=== PATIENT | male | born 1950 | race Caucasian/White ===

== ENCOUNTER 2020-09-25 07:55 | Day surgery (SDC) | payer MEDICARE, SELFPAY ==
[2020-09-24 08:39] VITALS: BMI 34.9
--- NOTE | 2020-09-25 08:13 | ANES.PREANE2 ---
Pre-Anesthetic Assessment Pre-Anesthetic Assessment: Height/Weight: Height 1.77 m Weight 108.862 kg Proposed Procedure: Operation Date: 09/25/20 09:30 Proposed Procedures p EGD Dilation W/ Bougie 10170 R13.10(Not Applicable) - Clint Cox MD Was Beta Snehal taken within 24 hours: N/A Was Clonidine taken within 24 hours: N/A Social: Social History: No alcohol and No tobacco Exam: Pre-Anes Outpt Exam: alert, oriented x 3, clear to auscultation bilaterally and regular rate & rhythm Airway: Submandibular: WNL Cervical ROM: WNL MP: 2 Dentition: False CV/HEM: CV/HEM: HTN GI: GI: GERD Metabolic: Metabolic: DM Musc/skel: Musc/skel: OA/DJD Anesthetic Plan: ASA status: 3 Anesthesia: MAC Risk of > 500 ml blood loss (7ml/kg in children): No Data Anesthesia Cardiac Studies: No Data to Display
[2020-09-25 08:26] VITALS: BP 151/79; PULSE 72; RESP 18; TEMP 36.5; O2SAT 98
[2020-09-25] MEDS: sodium chloride 0.9% 1,000 ML 30 ML IV (08:37)
[2020-09-25 08:44] LABS: Glucose Point of Care 155 mg/dL (70-110)
--- NOTE | 2020-09-25 09:31 | W.PM.OPSFHP ---
Same Day Surgery H&P Indication for Procedure/HPI DATE OF PROCEDURE: September 25, 2020 CHIEF COMPLAINT/INDICATIONFOR SURGICAL PROCEDURE: Dysphagia PREOP DIAGNOSIS: Dysphagia PLANNED PROCEDRUE: Operation Date: 09/25/20 09:30 Proposed Procedures p EGD Dilation W/ Bougie 71097 R13.10(Not Applicable) - Clint Cox MD Medications/Allergies* Home Medications Medication Instructions Recorded Confirmed Type esomeprazole magnesium 40 mg PO DAILY 09/24/20 09/25/20 History hydrochlorothiazide 25 mg PO DAILY 09/24/20 09/25/20 History lactobacillus acidoph-lactase 1 cap PO DAILY 09/24/20 09/25/20 History losartan 100 mg PO DAILY 09/24/20 09/25/20 History meloxicam 15 mg PO PRN 09/24/20 09/25/20 History metformin 850 mg PO BID 09/24/20 09/25/20 History terbinafine HCl 250 mg PO DAILY 09/24/20 09/25/20 History Allergies/Adverse Reactions Allergy/AdvReac Type Severity Reaction Status Date / Time No Known Allergies Allergy Unverified 09/15/20 15:56 Current Medications: Generic Name Dose Route Start Last Admin Trade Name Freq PRN Reason Stop Dose Admin Sodium Chloride 1,000 mls @ 30 mls/hr 09/25/20 08:30 09/25/20 08:37 Sodium Chloride 0.9% IV 09/26/20 08:29 30 mls/hr .Q24H DELORIS Administration Pertinent Exam Findings alert, oriented x 3, clear to auscultation bilaterally, regular rate & rhythm, operative site marked and procedure specific exam findings Recommendations Surgery/Procedure today Coding Level of Care Code Acute 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
--- NOTE | 2020-09-25 10:18 | CT_ITS ---
WS: [id number] CTA CHEST WITH CT ABDOMEN AND PELVIS. HISTORY: Esophageal mass. TECHNIQUE: CT angiogram is performed through the chest. Additional imaging is performed through the a bdomen and pelvis with IV contrast. Sagittal and coronal reformats have been submitted. MIP imaging also reviewed. All CT scans at [facility] use at least one of these dose optimization tech niques: automated exposure control; mA and/or kV adjustment per patient size (includes targeted exams where dose is matched to clinical indication); or iterative reconstruction. Contrast: Omnipaque 350; 95 cc IV. DLP: 1762.85 mGy.cm COMPARISON: None. Chest CTA: Very good opacification of the pulmonary arteries. No pulmonary embolism. Mild atheroscler osis aorta. Normal size pulmonary artery. Mild enlargement of the LEFT heart chambers with no RIGHT h eart strain. No pericardial or pleural effusions. Marked thickening and soft tissue in the distal eso phagus. The lumen is narrowed. Esophageal thickening extends over a length of at least 5 cm with maxi mum transverse diameter of 3.6 cm. Soft tissue thickening extends to the GE junction. Small mediastin al and hilar lymph nodes. There are a few lymph nodes adjacent to the distal esophagus with the large st measuring 10 mm. 3 mm noncalcified nodule posterior RIGHT upper lobe, image 21 of series 5. There are a few additional micronodules in the periphery which may be postinflammatory. Abdomen CT: Gallbladder is slightly contracted. Liver, pancreas, spleen and adrenals are negative. Mi ld atherosclerotic plaque within the aorta. Bilateral nonobstructing renal calcifications. 11 mm low- attenuation nodule in the upper pole of the LEFT kidney is indeterminate. Hounsfield units are elevat ed. No ascites or adenopathy. Moderate fecal retention throughout the colon. The appendix is been removed. Pelvic CT: No free fluid in the pelvis. Prostate gland is enlarged encroaching into the urinary bladd er with calcifications. No adenopathy in the pelvis. No osteoblastic or osteolytic bone disease. Moderate spondylitic changes in the thoracic and lumbar s pinelilly. CT/CT angio chest w abd pel w con IMPRESSION: 1. Long segment thickening and masslike structure in the distal esophagus. Mas s measures extends over length of at least 5 cm. Transverse diameter of 3.6 cm. Suspect esophageal neoplasm. There are a few adjacent small but indeterminate lymph nodes in the paraesophageal fat. 2. No evidence for metastatic disease to the liver or adrenal glands. 3. 3 mm noncalcified nodule posterior RIGHT upper lobe. Recommend further eval uation by CT follow-up in 6 months. 4. LEFT renal mass measures 11 mm and is solid in appearance. Early renal cell neoplasm not excluded. Recommend follow-up in [address] protocol recommended in 6 months.
[2020-09-25] MEDS: EPINEPHrine 1 mg/mL INJ XX (10:22)
[2020-09-25 10:24] VITALS: BP 163/95; PULSE 90; RESP 16; TEMP 36.5; O2SAT 95
[2020-09-25 10:34] VITALS: BP 148/91; PULSE 83; RESP 18; O2SAT 95
[2020-09-25 11:06] LABS: Basophils % 0.7 %; Eosinophils # 0.1 10^3/uL (0.0-0.8); Eosinophils % 2.3 %; Hematocrit 41.5 % (42.0-52.0); Lymphocytes # 1.7 10^3/uL (0.8-4.8); Lymphocytes % 28.3 %; Mean Corpuscular HGB Conc 33.7 g/dL (30.0-36.0); Mean Corpuscular Hemoglobin 31.1 pg (28.0-34.0); Mean Corpuscular Volume 92.2 fl (80-94); Mean Platelet Volume 10.4 fL (7.4-10.4); Monocytes # 0.6 10^3/uL (0.2-0.9); Monocytes % 9.5 %; Neutrophils # 3.55 10^3/uL (1.8-7.7); Nucleated Red Blood Cells % 0 %; Platelet Count 217 10^3/cmm (130-400); Red Cell Distribution Width 13.2 % (12.1-15.1)
[2020-09-25 11:28] LABS: Alanine Aminotransferase 26 U/L (0-41); Albumin Level 4.2 g/dL (3.5-5.2); Alkaline Phosphatase 98 IU/L (40-130); Anion Gap 11.5 (5-19); Aspartate Amino Transferase 21 U/L (0-40); Blood Urea Nitrogen 15 mg/dL (8-23); Calcium 8.8 mg/dL (8.5-10.5); Carbon Dioxide 29 mmol/L (22-29); Chloride 104 mmol/L (98-107); Glucose 151 mg/dL (65-115); Osmolality Calculated 294 mOsm/kg (285-295); Potassium 4.5 mmol/L (3.5-5.1); Sodium 140 mmol/L (136-145); Total Bilirubin 0.4 mg/dL (0.15-1.2); Total Protein 7.2 g/dL (6.6-8.7)
[2020-09-25] MEDS: iohexol 350 mg/mL 100 mL Btl IV (12:06)
--- NOTE | 2020-09-25 14:40 | ANE.PACU2 ---
Inpatient post-anesthesia follow up: Airway intact: Yes Vital signs: Temperature 97.7 F Pulse Rate 83 Respiratory Rate 18 Blood Pressure 148/91 Pulse Oximetry 95 Oxygen Delivery Me thod Room Air Oxygen Flow Rate 5 Fraction of Inspir ed Oxygen Hydration adequate: Yes Nausea and vomiting: No Pain level: 1 Mental status: Baseline
[2020-10-02 07:12] LABS: Miscellaneous Test See Scanned Lab Rpt
== END 2020-09-25 11:58 | disposition home or self-care (01) ==
PROVIDERS: PCP Family Medicine; Visit Provider Internal Medicine
DX: C15.5 Malignant neoplasm of lower third of esophagus (principal); R13.10 Dysphagia, unspecified; I10 Essential (primary) hypertension; K21.9 Gastro-esophageal reflux disease without esophagitis; E11.9 Type 2 diabetes mellitus without complications; M19.90 Unspecified osteoarthritis, unspecified site
CPT/HCPCS: 36416; 43236; 43239; 71275; 74177; 80053; 82962; 85025; 88305; 88361; 88374; 96360; J0171; J2704; J7030; Q9967

== ENCOUNTER 2020-10-12 09:56 | Outpatient (CLI) | payer MEDICARE, SELFPAY ==
--- NOTE | 2020-10-12 13:21 | ONC CON_ITS ---
Dr. Michaels New Patient Note Patient: Jatinder Platt Unit #: [id number]: [id number] Dicatated By: Merlyn Michaels M.D.Date of Visit: Oct 12, 2020 Onc MED New Patient/Consult Referring Physician: Dr. Capo Cox M.D. History of Present Illness: Mr. 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 Measures at least 5 cm, transverse diameter about 3.6 cm. There are few adjacent small but indeterminant lymph nodes in the paraesophageal fat. No evidence of metastatic disease to the liver or adrenal gland. A 3 mm noncalcified nodule posterior right upper lobe. Left renal mass measuring 11 mm and is solid in appearance. Early renal cell neoplasm not excluded follow-up recommended Patient has history of smoking but quit 31 years ago, but is a heavy smoker so he has secondhand smoking exposure. Denies alcohol use.,, Denies any fever chills, denies any nausea or vomiting, denies any diarrhea or constipation denies any abdominal pain denies any hematuria or dysuria or hemoptysis or hematemesis. Denies any headaches blurred vision or double vision. Past Medical History: Mr. Platt's medical history consists of hypertension, osteoarthritis, and type II diabetes. Past Surgical History: Mr. Platt's surgical/procedural history consists of cataract excision, covid vaccine #1 moderna in 2020, appendectomy in 1984, and thyroid surgery in 1967. Medications: Acidophilus 1 Capsule Oral daily, Esomeprazole Magnesium 1 Tablet (of 40 mg) Capsule Delayed Release Oral daily Allergies: No Known Allergies. Social History: Mr. Platt is . He is a smoker, current status unknown.He has no history of drinking. Family History: Mr. Platt's mother at age 72: heart disease, and type II diabetes. Mr. Platt's father at age 80. Review Of Symptoms: Review of Systems is not available for this patient. Vital Signs: Performed on Oct 12, 2020 11:23: 0, 3, 31.90 (HIGH), 2.13 sq.m, 69 in, 99 %, 80 /min, 18 /min, 182/62 mm(hg) (HIGH), 97.8 F (LOW), and 216 lbs (HIGH). Performance Status: 0 - Fully active, able to carry on all predisease activities without restrictions. (ECOG) Physical Examination: ENMT - No mouth sores, no thrush, no jaundice, no cervical lymphadenopathy, Respiratory - Lungs are clear to auscultation, Cardiovascular - Regular rate and rhythm of heart, Abdomen - Soft, bowel sounds present, Extremities - No visible edema. Lab/Imaging: Most recent lab results are not available for this patient. Impression: Invasive adenocarcinoma, moderate differentiated involving distal esophagus per EGD done on September 25, 2020, HER-2/emanuel positive CT chest abdomen pelvis done on October 12, 2020 shows long segment thickening and masslike structure in the distal esophagus. Mass measures about 5 cm. Transverse diameter is of 3.6 cm. There are few adjacent small but indeterminate lymph nodes in the paraesophageal fat. No evidence of metastatic disease to the liver or adrenal glands. 3 mm noncalcified nodule posterior right upper lobe. Left renal mass measuring 11 mm is and solid in appearance. Early renal cell neoplasm not excluded, follow-up recommended Progressive dysphagia, due to above Hypertension Plan: Discussed with patient regarding his disease status and further work-up and briefly about treatment options, at this point, will consider CT PET scan to complete staging work-up, if it shows localized disease, will consider combined chemoradiation with weekly carboplatin/Taxol concurrent with radiation therapy followed by surgical evaluation for possible esophagectomy , on the other hand, if it shows metastatic disease, will consider HER-2/emanuel based chemo regimen There was incidental finding of subcentimeter noncalcified right upper lung mass, and left renal mass, will monitor We will also request for Port-A-Cath placement and patient return to clinic after CT PET scan in the meantime we will also refer him to radiation oncology for evaluation., Will obtain baseline CBC CMP Signed By: Merlyn Michaels M.D. <<Signature on File>>
== END 2020-10-12 09:57 | disposition home or self-care (01) ==
LOC: ONCMED 10:06
PROVIDERS: PCP Family Medicine; Visit Provider Internal Medicine Hematology & Oncology
DX: C15.5 Malignant neoplasm of lower third of esophagus (principal); R91.8 Other nonspecific abnormal finding of lung field; N28.89 Other specified disorders of kidney and ureter; Z79.899 Other long term (current) drug therapy
CPT/HCPCS: 99205

== ENCOUNTER → 2020-10-16 13:32 | Outpatient (BNVA) | payer MEDICARE, SELFPAY | PROVIDERS: PCP Family Medicine; Referring Provider Internal Medicine Hematology & Oncology; Visit Provider Surgery | DX: C15.9 Malignant neoplasm of esophagus, unspecified (principal); Z11.52 Encounter for screening for COVID-19 | CPT/HCPCS: 87635 ==

== ENCOUNTER 2020-10-21 08:42 | Day surgery (SDC) | payer MEDICARE, SELFPAY ==
[2020-10-20 15:26] VITALS: BMI 31.7
--- NOTE | 2020-10-21 | SCC_ITS ---
Procedure Done: Placement of PowerPort in the left subclavian vein 24.9 seconds of fluoroscopic guidance, for a cumulative dose of 4.29 mGy, was provided to Dr. Barrera by the radiology department. C-arm images of the chest were saved for the patient's permanent record. [facility]
--- NOTE | 2020-10-21 08:57 | W.PM.OPSUD ---
Surgery/Procedure H&P Update DATE OF PROCEDURE: October 21, 2020 DATE H&P PERFORMED: 10/16/20 H&P UPDATE INFORMATION: I have reviewed H&P completed within last 30 days, I have examined patient prior to procedure and No changes to prior documentation PREOP DIAGNOSIS: Dysphagia PLANNED PROCEDURE: Operation Date: 10/21/20 09:50 Proposed Procedures p Portacath Placement 01702 C15.9(Not Applicable) - Giuseppe Barrera MD
[2020-10-21 09:00] VITALS: BP 168/91; PULSE 75; RESP 16; TEMP 36.3; O2SAT 96
[2020-10-21] MEDS: sodium chloride 0.9% 1,000 ML 30 ML IV (09:11)
[2020-10-21 09:15] LABS: Glucose Point of Care 115 mg/dL (70-110)
--- NOTE | 2020-10-21 09:22 | ANES.PREANE2 ---
Pre-Anesthetic Assessment Pre-Anesthetic Assessment: Height/Weight: Height 1.75 m Weight 97.522 kg Temp Pulse Resp BP Pulse Ox 97.3 F L 75 16 168/91 96 10/21/20 09:00 10/21/20 09:00 10/21/20 09:00 10/21/20 09:00 10/21/20 09:00 Preop Diagnosis: Dysphagia Proposed Procedure: Operation Date: 10/21/20 09:50 Proposed Procedures p Portacath Placement 86480 C15.9(Not Applicable) - Giuseppe Barrera MD Familial anesthetic complications: None Was Beta Snehal taken within 24 hours: N/A Was Clonidine taken within 24 hours: N/A Last intake: Intake Last Liquid Date 10/20/20 Last Liquid Time 20:00 Last Solid Date 10/20/20 Last Solid Time 20:00 Social: Social History: No alcohol and No tobacco Exam: Pre-Anes Outpt Exam: alert, oriented x 3, clear to auscultation bilaterally and regular rate & rhythm Airway: Cervical ROM: WNL MP: 2 Dentition: False CV/HEM: CV/HEM: HTN GI: GI: GERD Comments: esophageal cancer Metabolic: Metabolic: DM Anesthetic Plan: ASA status: 3 Anesthesia: MAC Risk of > 500 ml blood loss (7ml/kg in children): No Meds/Allergies Current Medications: Current Medications Generic Name Dose Route Start Last Admin Trade Name Freq PRN Reason Stop Dose Admin Sodium Chloride 1,000 mls @ 30 ml s/hr 10/21/20 08:45 10/21/20 09:11 Sodium Chloride 0.9% IV 10/22/20 08:44 30 mls/hr .Q24H DELORIS Administration PFSH Anesthesia PFSH: Medical History (Updated 10/16/20 @ 17:15 by Giuseppe Barrera MD) Esophageal cancer History of thyroglossal duct cyst Surgical History (Updated 10/16/20 @ 16:37 by Giuseppe Barrera MD) History of appendectomy Family History (Updated 10/16/20 @ 13:40 by MARCELL Gonzalez) Denies family history of Anesthesia complication Bleeding disorder Social History Smoking and tobacco status: former smoker Data Anesthesia Other Labs: Laboratory Results - last 48 hr 10/21/20 09:13 POC Glucose 115 H Cardiac Studies: No Data to Display
--- NOTE | 2020-10-21 10:00 | SC_ITS ---
WS: [id number] C-arm fluoroscopy for Port-A-Cath insertion, 10/21/2020 Clinical Data: portacath Comparison: None. Findings: The left Port-A-Cath has been inserted and ends in the superior vena cava. SC/C-arm [place] for CVA [id number] Impression: Port-A-Cath insertion.
[2020-10-21] MEDS: heparin, porcine 1,000 unit/mL INJ 10 mL 10000 UNIT INJECTION (10:19)
[2020-10-21 11:08] VITALS: BP 133/78; PULSE 79; RESP 19; TEMP 36.8; O2SAT 94
[2020-10-21 11:10] VITALS: BP 134/80; PULSE 76; RESP 17; O2SAT 95
--- NOTE | 2020-10-21 11:14 | PM.OP ---
Operative Report Date of procedure: October 21, 2020 Pre-op Diagnosis: Esophageal cancer Post-op diagnosis: same Procedure Done: Placement of PowerPort in the left subclavian vein Fluoroscopic guidance and interpretation for placement of catheter Pathology: none sent Surgeon: Giuseppe Barrera Anesthesia: MAC Condition: stable Disposition: PACU Procedure: The patient was taken to the Operating Room and the chest and neck bilaterally were prepped and draped in a sterile manner after the antibiotic had been administered and shoulder rolls had been placed. A total of 10 mL of 1% lidocaine with 0.5% Marcaine was infiltrated under the clavicle on the left side at the site of the planned entry into the subclavian vein. An introducer needle was then used to access the subclavian vein under the clavicle and after withdrawing blood syringe was removed and a guidewire passed under fluoroscopy into the superior vena cava. The site of the planned port was then marked on the chest and a 15 blade was used to make a 3 cm skin incision this was extended into the subcutaneous tissue using electrocautery and a subcutaneous pocket over the pectoralis fascia was created 2-0 Vicryl suture was used to suture the port to the pectoral fascia in the pocket on 3 sides. The catheter, after having been flushed with hep saline, was attached to the tunneler and a tunnel created between the port site and the subclavian vein entry site. Under fluoroscopy the dilator sheath was passed over the guidewire into the proximal superior vena cava. The inner dilator was removed and the sheath left behind and~ the catheter was introduced through the peel-away sheath with the tip in the superior vena cava. The peel-away sheath was removed. The proximal end of the catheter was cut to the right size and was attached to the port. Using a Cote needle the port was accessed, it withdrew blood easily and flushed easily. A final 5cc of heparin was used to flush the PowerPort. The subcutaneous tissue was approximated using interrupted 3-0 Vicryl sutures and the skin at the introducer site and the port site was closed using subcuticular running 4-0 Monocryl sutures. Surgical glue was applied and the patient was stable throughout the procedure. Fluoroscopic guidance and interpretation was performed for introduction of the guidewire in the left subclavian vein, passage of dilator and placement of catheter tip in the distal superior vena cava.
[2020-10-21 11:15] VITALS: BP 158/85; PULSE 72; RESP 16; TEMP 36.6; O2SAT 95
[2020-10-21 11:16] VITALS: BP 150/91; PULSE 75; RESP 16; TEMP 36.5; O2SAT 96
--- NOTE | 2020-10-21 11:19 | PC.NURSE ---
Pt educated to take zofran for nausea and colace for constipation caused by the norco rx. Pt and daughter informed that scripts have been sent and received by [facility] pharmacy.
[2020-10-21 11:38] VITALS: BP 150/90; PULSE 71; RESP 16; O2SAT 95
--- NOTE | 2020-10-21 14:03 | ANE.PACU2 ---
Inpatient post-anesthesia follow up: Airway intact: Yes Vital signs: Temperature 97.7 F Pulse Rate 71 Respiratory Rate 16 Blood Pressure 150/90 Pulse Oximetry 95 Oxygen Delivery Me thod Room Air Oxygen Flow Rate Fraction of Inspir ed Oxygen Hydration adequate: Yes Nausea and vomiting: No Pain level: 2 Mental status: Baseline
== END 2020-10-21 11:46 | disposition home or self-care (01) ==
PROVIDERS: PCP Family Medicine; Visit Provider Surgery
PROC: (CPT 36561; principal; 2020-10-21 09:40)
DX: C15.9 Malignant neoplasm of esophagus, unspecified (principal); I10 Essential (primary) hypertension; E11.9 Type 2 diabetes mellitus without complications; Z87.891 Personal history of nicotine dependence
CPT/HCPCS: 36561; 36416; 77001; 82962; C1788; J1644; J2704; J3010; J3490; J7030

== ENCOUNTER 2020-10-28 11:57 | Outpatient (CLI) | payer MEDICARE, SELFPAY ==
[2020-10-28 12:25] LABS: Basophils # 0.1 10^3/uL (0.0-0.1); Basophils % 0.9 %; Eosinophils # 0.1 10^3/uL (0.0-0.8); Eosinophils % 1.9 %; Hematocrit 43.3 % (42.0-52.0); Hemoglobin 14.3 g/dL (11.7-16.6); Lymphocytes # 1.6 10^3/uL (0.8-4.8); Lymphocytes % 27.8 %; Mean Corpuscular Volume 93.7 fl (80-94); Mean Platelet Volume 10.5 fL (7.4-10.4); Monocytes # 0.6 10^3/uL (0.2-0.9); Monocytes % 10.2 %; Neutrophils # 3.36 10^3/uL (1.8-7.7); Nucleated Red Blood Cells % 0 %; Platelet Count 221 10^3/cmm (130-400); Red Blood Count 4.62 10^6/uL (4.1-5.3); Red Cell Distribution Width 12.9 % (12.1-15.1); White Blood Count 5.7 10^3/uL (4.0-10.0)
[2020-10-28 12:41] LABS: Alanine Aminotransferase 19 U/L (0-41); Albumin Level 4.2 g/dL (3.5-5.2); Alkaline Phosphatase 106 IU/L (40-130); Anion Gap 13.2 (5-19); Aspartate Amino Transferase 19 U/L (0-40); Blood Urea Nitrogen 13 mg/dL (8-23); Calcium 9.1 mg/dL (8.5-10.5); Carbon Dioxide 29 mmol/L (22-29); Chloride 102 mmol/L (98-107); Globulin 3.1 g/dL (1.3-4.6); Glucose 98 mg/dL (65-115); Osmolality Calculated 290 mOsm/kg (285-295); Potassium 4.2 mmol/L (3.5-5.1); Sodium 140 mmol/L (136-145); Total Bilirubin 0.4 mg/dL (0.15-1.2); Total Protein 7.3 g/dL (6.6-8.7)
--- NOTE | 2020-10-28 17:05 | ONC FU_ITS ---
Dr. Michaels follow up note Patient: Jatinder Platt Unit #: [id number]: 1950 Dicatated By: Merlyn Michaels M.D.Date of Visit:Oct 28, 2020 Onc Med Follow-up/Prog Note History of Present Illness: Mr. 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 Measures at least 5 cm, transverse diameter about 3.6 cm. There are few adjacent small but indeterminant lymph nodes in the paraesophageal fat. No evidence of metastatic disease to the liver or adrenal gland. A 3 mm noncalcified nodule posterior right upper lobe. Left renal mass measuring 11 mm and is solid in appearance. Early renal cell neoplasm not excluded follow-up recommended Staging CT PET scan done on October 22, 2020 showed distal esophagus is dilated with thickened wall with a maximum SUV of 13.13. Lower mediastinal paraesophageal lymph nodes are present., Size about 0.9 cm with SUV of 6.03. Posterior right upper lobe 0.4 cm nodular density with SUV of 1.13 and another 0.2 cm nodular density in the right posterior apex with SUV of 1.27. Calcified micronodules are present in the right lung. And liver there is 2.2 cm mass in anterior left lobe with SUV of 9.79. A 2 cm nodular density is present in the posterior wall of the urinary bladder with SUV of 6.13 no mass is identified in the left kidney no osseous metastatic disease seen Patient has history of smoking but quit 31 years ago, but is a heavy smoker so he has secondhand smoking exposure. Denies alcohol use.,, Denies any fever chills, denies any nausea or vomiting, denies any diarrhea or constipation denies any abdominal pain denies any hematuria or dysuria or hemoptysis or hematemesis. Denies any headaches blurred vision or double vision. Came for follow-up, denies any specific complaints, no fever chills, no nausea or vomiting, no diarrhea constipation, still tolerating orally well but only liquid and semisolid, patient has Port-A-Cath placement done., He is here to discuss about his staging CT PET scan findings. And further treatment planning Medications: Acidophilus Probiotic 1 Tablet (of 10 mg) Oral daily, Daily Value Multivitamin 1 Tablet Oral daily, Esomeprazole Magnesium 1 Tablet (of 40 mg) Capsule Delayed Release Oral daily Allergies: No Known Allergies. Review of Systems: Review of Systems is not available for this patient. Vital Signs: Performed on Oct 28, 2020 14:05 Height - 69.00 in Weight - 206.8 lbs (LOW) BSA - 2.10 sq.m BMI - 30.54 (HIGH) Temperature - 97.8 F (LOW) Pulse - 79 /min Respiration - 18 /min BP - 144/83 mm(hg) (HIGH) O2 Sat - 98 % Pain - 3 Fatigue - 3 Performance Status: 0 - Fully active, able to carry on all predisease activities without restrictions. (ECOG) Physical Examination: ENMT - No mouth sores, no thrush, no jaundice, Respiratory - Lungs are clear to auscultation, Cardiovascular - Regular rate and rhythm of heart, Abdomen - Soft, bowel sounds present, Extremities - No visible edema. Lab/Imaging: Most recent lab results are not available for this patient. Impression: Metastatic Invasive adenocarcinoma, moderate differentiated involving distal esophagus per EGD done on September 25, 2020, HER-2/emanuel positive, CT PET scan done on October 22, 2020 showed distal esophageal thickening wall with marked increase in metabolic activity. Paraesophageal lymph nodes in the inferior mediastinum. A single liver lesion is observed consistent with metastatic disease in anterior left lobe. Pulmonary micronodules are indeterminant for early metastatic disease. Head and neck and left axillary lymph nodes all may be reactive. CT chest abdomen pelvis done on October 12, 2020 shows long segment thickening and masslike structure in the distal esophagus. Mass measures about 5 cm. Transverse diameter is of 3.6 cm. There are few adjacent small but indeterminate lymph nodes in the paraesophageal fat. No evidence of metastatic disease to the liver or adrenal glands. 3 mm noncalcified nodule posterior right upper lobe. Left renal mass measuring 11 mm is and solid in appearance. Early renal cell neoplasm not excluded, follow-up recommended Progressive dysphagia, due to above Hypertension Plan: Discussed with patient regarding his labs white blood count 5.7 hemoglobin 14.3 hematocrit 43.3 platelets 221,000 CMP within normal limits and follow-up CT PET scan which shows single liver lesion and pulmonary micronodules are indeterminant for the early metastatic disease. Clinically, patient is doing reasonably well, with mild to moderate dysphagia to solid food but tolerating well liquid and semisolid, CT PET scan shows metastatic disease to the liver as well as questionable pulmonary mets, at this point we will consider systemic therapy, based on, being HER-2/emanuel positive, Herceptin based regimen and recently FDA has approved pembrolizumab in HER-2/emanuel positive locally advanced or metastatic gastric and gastroesophageal adenocarcinoma based on keynote 811 trial which showed overall response rate 74% versus 52% in pembrolizumab-/Herceptin/5-FU/oxaliplatin regimen versus Herceptin/5-FU/oxaliplatin regimen We will obtain baseline echocardiogram as Herceptin has cardiotoxicity one of the side effect and patient will return to clinic after echocardiogram done to discuss detail about chemo regimen related side effect and chemo teaching and plan to give him FOLFOX every 2 weeks and Herceptin 8 mg/kg loading dose followed by 4 mg every 2 weeks and then pembrolizumab 400 mg every [address] PET scan after 3 cycles to assess response and then plan accordingly Signed By: Merlyn Michaels M.D. <<Signature on File>>
== END 2020-10-28 11:58 | disposition home or self-care (01) ==
LOC: ONCMED 12:00
PROVIDERS: PCP Family Medicine; Visit Provider Internal Medicine Hematology & Oncology
DX: C15.5 Malignant neoplasm of lower third of esophagus (principal); C78.7 Secondary malignant neoplasm of liver and intrahepatic bile duct; R13.10 Dysphagia, unspecified; R91.8 Other nonspecific abnormal finding of lung field; I10 Essential (primary) hypertension; Z79.899 Other long term (current) drug therapy
CPT/HCPCS: 36415; 80053; 85025; 99214

== ENCOUNTER 2020-11-03 14:28 | Outpatient (CLI) | payer MEDICARE, SELFPAY ==
--- NOTE | 2020-11-03 14:36 | USCV_ITS ---
Jatinder Platt Age: 70 Gender: M : 1950 Exam Date: 11/03/2020 14:50 Ordering Phys: Merlyn Michaels MD Technologist: SWETA [place] [facility] [place] baseline/ monitoring for herceptin/check lv BP: 150 / 72 HR: 84 Rhythm: Sinus Technical Quality: Technically difficult study MEASUREMENTS (Male / Female) Normal Values 2D ECHO LV Diastolic Diameter PLAX 3.3 cm 4.2 - 5.9 / 3.9 - 5.3 cm LV Systolic Diameter PLAX 2.2 cm IVS Diastolic Thickness 1.1 cm 0.6 - 1.0 / 0.6 - 0.9 cm IVS Systolic Thickness 1.2 cm LVPW Diastolic Thickness 1.8 cm 0.6 - 1.0 / 0.6 - 0.9 cm LVPW Systolic Thickness 1.8 cm LVOT Diameter 2.1 cm LV Ejection Fraction 2D Teich 63.2 % LV Ejection Fraction MOD 2C 52.8 % LV Ejection Fraction 2C AL 53.5 % LA Diameter 3.0 cm LA Width 3.0 cm LA Height 4.9 cm RA Width 4.0 cm RA Height 4.1 cm Aorta at Sinotubular Diameter 2.5 cm DOPPLER AV Peak Velocity 167.0 cm/s LVOT Peak Velocity 99.0 cm/s AV Area Cont Eq vti 2.1 cm squared AV Area Cont Eq pk 2.0 cm squared MV Area PHT 7.6 cm squared Mitral E to A Ratio 0.4 MV E' Velocity 28.0 cm/s Mitral E to MV E' Ratio 4.9 Mitral E to LV E' Lateral Ratio 4.8 Mitral E to LV E' Septal Ratio 5.0 TR Peak Velocity 220.3 cm/s TR Peak Gradient 19.4 mmHg TR Mean Velocity 171.8 cm/s TR Mean Gradient 12.4 mmHg TR Velocity Time Integral 55.8 cm Right Atrial Pressure 3.0 mmHg Pulmonary Artery Systolic Pressu 22.4 mmHg PV Peak Velocity 53.0 cm/s RV Acceleration Time 0.1 s RV Ejection Time 0.3 s RV AcT/ET 0.4 FINDINGS Left Ventricle Normal in size with a borderline low ejection fraction of 53%. Mild diffuse hypokinesis of the left ventricle. Because of the poor endocardial delineation, ejection pressure estimation could be misleading.Grade I/IV diastolic dysfunction (abnormal relaxation filling pattern), normal to mildly elevated filling pressures. Right Ventricle The right ventricle is normal in size and function. Right Atrium The right atrium is normal in size. Left Atrium The left atrium is normal in size. Mitral Valve Thickened mitral valve. Moderate mitral annular calcification. Aortic Valve Thickened aortic valve. Tricuspid Valve Trace tricuspid valve regurgitation. Pulmonic Valve Pulmonic valve not well visualized. Pericardium Normal pericardium without effusion. Aorta Normal ascending aorta dimension. CONCLUSIONS Normal in size with a borderline low ejection fraction of 53%. Mild diffuse hypokinesis of the left ventricle. Grade I/IV diastolic dysfunction (abnormal relaxation filling pattern), normal to mildly elevated filling pressures. Thickened mitral valve. Moderate mitral annular calcification. Thickened aortic valve. Trace tricuspid valve regurgitation. Because of the poor endocardial delineation, ejection pressure estimation could be misleading Consider contrast echo, to better evaluate LV ejection fraction. Dr Harleen Lange MD FAC (Electronically Signed) Final Date: 04 November 2020 01:02 S
== END 2020-11-03 14:29 | disposition home or self-care (01) ==
PROVIDERS: PCP Family Medicine; Visit Provider Internal Medicine Hematology & Oncology
DX: Z79.899 Other long term (current) drug therapy (principal); I08.3 Combined rheumatic disorders of mitral, aortic and tricuspid valves
CPT/HCPCS: 93306

== ENCOUNTER 2020-11-13 09:49 | Outpatient (CLI) | payer MEDICARE, SELFPAY ==
[2020-11-13 10:44] LABS: Basophils # 0.1 10^3/uL (0.0-0.1); Basophils % 1.1 %; Eosinophils # 0.1 10^3/uL (0.0-0.8); Eosinophils % 1.8 %; Hematocrit 44.1 % (42.0-52.0); Hemoglobin 14.4 g/dL (11.7-16.6); Lymphocytes # 1.4 10^3/uL (0.8-4.8); Lymphocytes % 23.6 %; Mean Corpuscular HGB Conc 32.7 g/dL (30.0-36.0); Mean Corpuscular Hemoglobin 30.4 pg (28.0-34.0); Mean Corpuscular Volume 93.2 fl (80-94); Mean Platelet Volume 11.2 fL (7.4-10.4); Monocytes # 0.6 10^3/uL (0.2-0.9); Neutrophils # 3.91 10^3/uL (1.8-7.7); Neutrophils % 64.3 %; Nucleated Red Blood Cells % 0 %; Platelet Count 235 10^3/cmm (130-400); Red Blood Count 4.73 10^6/uL (4.1-5.3); Red Cell Distribution Width 12.6 % (12.1-15.1); White Blood Count 6.1 10^3/uL (4.0-10.0)
[2020-11-13 11:10] LABS: Alanine Aminotransferase 18 U/L (0-41); Alkaline Phosphatase 101 IU/L (40-130); Anion Gap 12.5 (5-19); Aspartate Amino Transferase 18 U/L (0-40); Blood Urea Nitrogen 20 mg/dL (8-23); Calcium 9.5 mg/dL (8.5-10.5); Carbon Dioxide 29 mmol/L (22-29); Chloride 99 mmol/L (98-107); Glucose 186 mg/dL (65-115); Osmolality Calculated 289 mOsm/kg (285-295); Potassium 4.5 mmol/L (3.5-5.1); Sodium 136 mmol/L (136-145); Total Bilirubin 0.4 mg/dL (0.15-1.2)
== END 2020-11-13 09:50 | disposition home or self-care (01) ==
LOC: ONCMED 09:51
PROVIDERS: PCP Family Medicine; Visit Provider Internal Medicine Hematology & Oncology
DX: C15.5 Malignant neoplasm of lower third of esophagus (principal); R13.19 Other dysphagia; I10 Essential (primary) hypertension
CPT/HCPCS: 36415; 80053; 85025

== ENCOUNTER 2020-12-07 08:00 | Outpatient (RCR) | payer MEDICARE, SELFPAY ==
[2020-11-16] MEDS: palonosetron 0.25 mg/5 mL SDV IVP (10:14)
[2020-11-16] MEDS: dextrose 5% 250 ML 75 ML IV (10:14)
[2020-11-16 17:22] LABS: Basophils # 0.1 10^3/uL (0.0-0.1); Basophils % 0.8 %; Eosinophils # 0.1 10^3/uL (0.0-0.8); Eosinophils % 1.4 %; Hematocrit 42.2 % (42.0-52.0); Hemoglobin 13.6 g/dL (11.7-16.6); Lymphocytes # 1.7 10^3/uL (0.8-4.8); Lymphocytes % 26.9 %; Mean Corpuscular HGB Conc 32.2 g/dL (30.0-36.0); Mean Corpuscular Hemoglobin 30.5 pg (28.0-34.0); Mean Corpuscular Volume 94.6 fl (80-94); Mean Platelet Volume 12.4 fL (7.4-10.4); Monocytes # 0.7 10^3/uL (0.2-0.9); Monocytes % 11.2 %; Neutrophils # 3.78 10^3/uL (1.8-7.7); Neutrophils % 59.5 %; Nucleated Red Blood Cells % 0 %; Platelet Count 227 10^3/cmm (130-400); Red Blood Count 4.46 10^6/uL (4.1-5.3); Red Cell Distribution Width 12.9 % (12.1-15.1); White Blood Count 6.4 10^3/uL (4.0-10.0)
[2020-11-16 18:11] LABS: Alanine Aminotransferase 17 U/L (0-41); Albumin Level 3.7 g/dL (3.5-5.2); Alkaline Phosphatase 94 IU/L (40-130); Anion Gap 16.4 (5-19); Aspartate Amino Transferase 16 U/L (0-40); Blood Urea Nitrogen 18 mg/dL (8-23); Calcium 9.2 mg/dL (8.5-10.5); Carbon Dioxide 27 mmol/L (22-29); Chloride 101 mmol/L (98-107); Globulin 3.1 g/dL (1.3-4.6); Glucose 105 mg/dL (65-115); Osmolality Calculated 292 mOsm/kg (285-295); Potassium 4.4 mmol/L (3.5-5.1); Sodium 140 mmol/L (136-145); Total Bilirubin 0.3 mg/dL (0.15-1.2); Total Protein 6.8 g/dL (6.6-8.7)
--- NOTE | 2020-11-20 15:19 | ONC FU_ITS ---
Dr. Michaels follow up note Patient: Jatinder Platt Unit #: [id number]: 1950 Dicatated By: Merlyn Michaels M.D.Date of Visit:Nov 16, 2020 Onc Med Follow-up/Prog Note History of Present Illness: Mr. 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 Measures at least 5 cm, transverse diameter about 3.6 cm. There are few adjacent small but indeterminant lymph nodes in the paraesophageal fat. No evidence of metastatic disease to the liver or adrenal gland. A 3 mm noncalcified nodule posterior right upper lobe. Left renal mass measuring 11 mm and is solid in appearance. Early renal cell neoplasm not excluded follow-up recommended Staging CT PET scan done on October 22, 2020 showed distal esophagus is dilated with thickened wall with a maximum SUV of 13.13. Lower mediastinal paraesophageal lymph nodes are present., Size about 0.9 cm with SUV of 6.03. Posterior right upper lobe 0.4 cm nodular density with SUV of 1.13 and another 0.2 cm nodular density in the right posterior apex with SUV of 1.27. Calcified micronodules are present in the right lung. And liver there is 2.2 cm mass in anterior left lobe with SUV of 9.79. A 2 cm nodular density is present in the posterior wall of the urinary bladder with SUV of 6.13 no mass is identified in the left kidney no osseous metastatic disease seen Patient has history of smoking but quit 31 years ago, but is a heavy smoker so he has secondhand smoking exposure. Denies alcohol use.,, Echocardiogram done prior to the treatment on November 03, 2020 showed borderline low ejection fraction of 53%. Mild diffuse hypokinesis of the left ventricle. Because of poor endocardial delineation, ejection pressure estimation could be misleading, further studies with contrast echo or MUGA scan was recommended Came for follow-up, denies any specific complaint except persistent but stable dysphagia, tolerating semisolid food including Ensure well. No nausea or vomiting, no hemoptysis or hematemesis, no chest pain or shortness of breath, no lower extremity edema, Medications: Acidophilus Probiotic 1 Tablet (of 10 mg) Oral daily, Daily Value Multivitamin 1 Tablet Oral daily, Esomeprazole Magnesium 1 Tablet (of 40 mg) Capsule Delayed Release Oral daily Allergies: No Known Allergies. Review of Systems: Review of Systems is not available for this patient. Vital Signs: Performed on Nov 16, 2020 08:30 Height - 69.00 in Weight - 195.6 lbs (LOW) BSA - 2.05 sq.m BMI - 28.89 Temperature - 97.5 F (LOW) Pulse - 101 /min (HIGH) Respiration - 18 /min BP - 116/68 mm(hg) O2 Sat - 97 % Pain - 0 Fatigue - 0 Performance Status: 0 - Fully active, able to carry on all predisease activities without restrictions. (ECOG) Physical Examination: ENMT - No mouth sores, no thrush, no jaundice, no cervical lymphadenopathy, Respiratory - Lungs are clear to auscultation, Cardiovascular - Regular rate and rhythm of heart, Abdomen - Soft, bowel sounds present, Extremities - No visible edema. Lab/Imaging: Most recent lab results are not available for this patient. Impression: Metastatic Invasive adenocarcinoma, moderate differentiated involving distal esophagus per EGD done on September 25, 2020, HER-2/emanuel positive, CT PET scan done on October 22, 2020 showed distal esophageal thickening wall with marked increase in metabolic activity. Paraesophageal lymph nodes in the inferior mediastinum. A single liver lesion is observed consistent with metastatic disease in anterior left lobe. Pulmonary micronodules are indeterminant for early metastatic disease. Head and neck and left axillary lymph nodes all may be reactive. CT chest abdomen pelvis done on October 12, 2020 shows long segment thickening and masslike structure in the distal esophagus. Mass measures about 5 cm. Transverse diameter is of 3.6 cm. There are few adjacent small but indeterminate lymph nodes in the paraesophageal fat. No evidence of metastatic disease to the liver or adrenal glands. 3 mm noncalcified nodule posterior right upper lobe. Left renal mass measuring 11 mm is and solid in appearance. Early renal cell neoplasm not excluded, follow-up recommended Progressive dysphagia, due to above Hypertension Plan: Discussed with patient regarding his labs white blood count 6.1 hemoglobin 14.1 hematocrit 44.1 platelets 235,000 CMP within normal limit except glucose 186 Echocardiogram shows ejection fraction on the low side of normal at 53% Clinically, patient is doing reasonably well with no new signs symptom except persistent but stable dysphagia, now starting palliative chemotherapy/immunotherapy, earlier planning, being HER-2/emanuel positive, was to start him on Herceptin/pembrolizumab/FOLFOX but now pretreatment echocardiogram shows ejection fraction 53% and because of poor endocardial delineation, ejection fraction estimation could be misleading, case was discussed with Dr. Lange this morning who recommended MUGA scan for better evaluation. So we will hold Herceptin today but proceed with FOLFOX every 2 weeks and and patient return to clinic in 2 weeks with CBC CMP/6 weekly pembrolizumab if reasonable for next dose of FOLFOX only as pembrolizumab will be repeated every 6 weeks and if MUGA scan shows ejection fraction within normal range, we will add Herceptin to.o Signed By: Merlyn Michaels M.D. <<Signature on File>>
[2020-11-25 13:42] LABS: Basophils % 0.5 %; Eosinophils # 0.2 10^3/uL (0.0-0.8); Eosinophils % 2.6 %; Hematocrit 41.4 % (42.0-52.0); Lymphocytes % 34.4 %; Mean Corpuscular HGB Conc 33.8 g/dL (30.0-36.0); Mean Corpuscular Hemoglobin 30.9 pg (28.0-34.0); Mean Corpuscular Volume 91.4 fl (80-94); Mean Platelet Volume 10.4 fL (7.4-10.4); Monocytes # 0.4 10^3/uL (0.2-0.9); Monocytes % 7.4 %; Neutrophils # 3.13 10^3/uL (1.8-7.7); Neutrophils % 54.9 %; Nucleated Red Blood Cells % 0 %; Platelet Count 208 10^3/cmm (130-400); Red Blood Count 4.53 10^6/uL (4.1-5.3); Red Cell Distribution Width 12.2 % (12.1-15.1); White Blood Count 5.7 10^3/uL (4.0-10.0)
[2020-11-25 14:36] LABS: Alanine Aminotransferase 17 U/L (0-41); Albumin Level 3.9 g/dL (3.5-5.2); Alkaline Phosphatase 94 IU/L (40-130); Anion Gap 15.1 (5-19); Aspartate Amino Transferase 15 U/L (0-40); Blood Urea Nitrogen 18 mg/dL (8-23); Calcium 9.2 mg/dL (8.5-10.5); Carbon Dioxide 27 mmol/L (22-29); Chloride 101 mmol/L (98-107); Globulin 3.3 g/dL (1.3-4.6); Glucose 107 mg/dL (65-115); Osmolality Calculated 290 mOsm/kg (285-295); Potassium 4.1 mmol/L (3.5-5.1); Sodium 139 mmol/L (136-145); Total Bilirubin 0.4 mg/dL (0.15-1.2); Total Protein 7.2 g/dL (6.6-8.7)
--- NOTE | 2020-11-25 17:32 | ONC FU_ITS ---
Dr. Michaels follow up note Patient: Jatinder Platt Unit #: [id number]: 1950 Dicatated By: Merlyn Michaels M.D.Date of Visit:Nov 25, 2020 Onc Med Follow-up/Prog Note History of Present Illness: Mr. 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 Measures at least 5 cm, transverse diameter about 3.6 cm. There are few adjacent small but indeterminant lymph nodes in the paraesophageal fat. No evidence of metastatic disease to the liver or adrenal gland. A 3 mm noncalcified nodule posterior right upper lobe. Left renal mass measuring 11 mm and is solid in appearance. Early renal cell neoplasm not excluded follow-up recommended Staging CT PET scan done on October 22, 2020 showed distal esophagus is dilated with thickened wall with a maximum SUV of 13.13. Lower mediastinal paraesophageal lymph nodes are present., Size about 0.9 cm with SUV of 6.03. Posterior right upper lobe 0.4 cm nodular density with SUV of 1.13 and another 0.2 cm nodular density in the right posterior apex with SUV of 1.27. Calcified micronodules are present in the right lung. And liver there is 2.2 cm mass in anterior left lobe with SUV of 9.79. A 2 cm nodular density is present in the posterior wall of the urinary bladder with SUV of 6.13 no mass is identified in the left kidney no osseous metastatic disease seen Patient has history of smoking but quit 31 years ago, but is a heavy smoker so he has secondhand smoking exposure. Denies alcohol use.,, Echocardiogram done prior to the treatment on November 03, 2020 showed borderline low ejection fraction of 53%. Mild diffuse hypokinesis of the left ventricle. Because of poor endocardial delineation, ejection pressure estimation could be misleading, further studies with contrast echo or MUGA scan was recommended Started on systemic chemotherapy with FOLFOX/pembrolizumab minus Herceptin due to borderline low ejection fraction on November 16, 2020 Came for follow-up, patient denies any specific complaints, except mild to moderate dysphagia and off and on indigestion and reflux otherwise tolerated first cycle of chemotherapy with FOLFOX and pembrolizumab, patient was supposed to be on Herceptin to but because his echo showed borderline low ejection fraction but it was difficult study so MUGA scan was recommended which is scheduled for coming Monday if it shows normal ejection fraction, will add Herceptin with the next cycle. Patient denies any fever chills denies any nausea or vomiting denies any diarrhea or constipation denies any peripheral neuropathy. Medications: Esomeprazole Magnesium 1 Tablet (of 40 mg) Capsule Delayed Release Oral daily, Losartan Potassium 1 Tablet (of 100 mg) Oral daily Allergies: No Known Allergies. Review of Systems: Review of Systems is not available for this patient. Vital Signs: Performed on Nov 25, 2020 15:14 Height - 69.00 in Weight - 186.4 lbs (LOW) BSA - 2.00 sq.m BMI - 27.53 Temperature - 97.8 F (LOW) Pulse - 114 /min (HIGH) Respiration - 18 /min BP - 115/69 mm(hg) O2 Sat - 98 % Pain - 0 Fatigue - 6 Performance Status: 0 - Fully active, able to carry on all predisease activities without restrictions. (ECOG) Physical Examination: ENMT - No mouth sores, no thrush, no jaundice, Respiratory - Lungs are clear to auscultation, Cardiovascular - Regular rate and rhythm of heart, Abdomen - Soft, bowel sounds present, Extremities - No visible edema. Lab/Imaging: Most recent lab results are not available for this patient. Impression: Metastatic Invasive adenocarcinoma, moderate differentiated involving distal esophagus per EGD done on September 25, 2020, HER-2/emanuel positive, CT PET scan done on October 22, 2020 showed distal esophageal thickening wall with marked increase in metabolic activity. Paraesophageal lymph nodes in the inferior mediastinum. A single liver lesion is observed consistent with metastatic disease in anterior left lobe. Pulmonary micronodules are indeterminant for early metastatic disease. Head and neck and left axillary lymph nodes all may be reactive. CT chest abdomen pelvis done on October 12, 2020 shows long segment thickening and masslike structure in the distal esophagus. Mass measures about 5 cm. Transverse diameter is of 3.6 cm. There are few adjacent small but indeterminate lymph nodes in the paraesophageal fat. No evidence of metastatic disease to the liver or adrenal glands. 3 mm noncalcified nodule posterior right upper lobe. Left renal mass measuring 11 mm is and solid in appearance. Early renal cell neoplasm not excluded, follow-up recommended Progressive dysphagia, due to above Hypertension Plan: Discussed with patient regarding his labs white blood count 5.7 hemoglobin 14 medical 41.4 platelets 200,000 CMP within normal limits Clinically, patient doing well with no new signs symptoms suggestive of disease progression, tolerated first cycle of chemotherapy with FOLFOX/pembrolizumab well, his follow-up lab work-up is within normal range, his dysphagia is stable but somewhat improving. Patient is scheduled for MUGA scan on coming Monday, if it shows ejection fraction normal range, will consider adding Herceptin with next cycle of FOLFOX/pembrolizumab. Patient return to clinic in 1 week with CBC, blood count looks reasonable we will proceed with next dose of FOLFOX aloneAs he will be receiving pembrolizumab every 6 weeks, we may add Herceptin, initially every 2 weeks dose along with FOLFOX and then later on switched to every 6 weeks along with pembrolizumab while continue FOLFOX every 2 weeks Signed By: Merlyn Michaels M.D. <<Signature on File>>
[2020-12-02 14:45] LABS: Basophils % 1.1 %; Eosinophils # 0.1 10^3/uL (0.0-0.8); Eosinophils % 1.9 %; Hematocrit 39.1 % (42.0-52.0); Hemoglobin 13.1 g/dL (11.7-16.6); Lymphocytes # 1.3 10^3/uL (0.8-4.8); Lymphocytes % 47.5 %; Mean Corpuscular HGB Conc 33.5 g/dL (30.0-36.0); Mean Corpuscular Hemoglobin 30.8 pg (28.0-34.0); Monocytes # 0.6 10^3/uL (0.2-0.9); Monocytes % 21.1 %; Nucleated Red Blood Cells % 0 %; Platelet Count 191 10^3/cmm (130-400); Red Blood Count 4.25 10^6/uL (4.1-5.3); White Blood Count 2.7 10^3/uL (4.0-10.0)
[2020-12-02 14:55] LABS: Neutrophils # 0.74 10^3/uL (1.8-7.7)
[2020-12-02 14:56] LABS: Slide Review Slide Review Perform
[2020-12-02 15:20] LABS: Alanine Aminotransferase 14 U/L (0-41); Alkaline Phosphatase 104 IU/L (40-130); Anion Gap 14.1 (5-19); Aspartate Amino Transferase 15 U/L (0-40); Blood Urea Nitrogen 11 mg/dL (8-23); Calcium 9.2 mg/dL (8.5-10.5); Carbon Dioxide 27 mmol/L (22-29); Chloride 99 mmol/L (98-107); Glucose 104 mg/dL (65-115); Osmolality Calculated 282 mOsm/kg (285-295); Potassium 4.1 mmol/L (3.5-5.1); Sodium 136 mmol/L (136-145); Total Bilirubin 0.3 mg/dL (0.15-1.2)
--- NOTE | 2020-12-18 00:33 | ONC FU_ITS ---
Anastasiya Ybarra Patient Note Patient: Jatinder Platt Unit #: [id number]: 1950 Dictated By: Hang EvangelistaDate of Visit: Dec 03, 2020 Onc MED Follow-Up/Prog Note Chief Complaint: Esophageal cancer History of Present Illness: Mr. Platt is a 70-year-old gentleman with a history of progressive dysphagia and weight loss. He underwent EGD on September 25, 2020 which showed in the lower third esophagus, a moderate, malignant appearing, intrinsic stenosis was noted. The stenosis was traversed, partially obstructing, medium sized, friable, fungating, circumferential. An actively bleeding ulcerated mass was seen. 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 CT chest abdomen pelvis on September 25, 2020 showed a long segment thickening and masslike structure in the distal esophagus. Measures at least 5 cm, transverse diameter about 3.6 cm. There are few adjacent small but indeterminant lymph nodes in the paraesophageal fat. No evidence of metastatic disease to the liver or adrenal gland. A 3 mm noncalcified nodule posterior right upper lobe. Left renal mass measuring 11 mm and is solid in appearance. Early renal cell neoplasm not excluded and follow-up was recommended. Staging PET/CT scan from October 22, 2020 reported a dilated distal esophagus with thickened wall with a maximum SUV of 13.13. Lower mediastinal paraesophageal lymph nodes are present., Size about 0.9 cm with SUV of 6.03. Posterior right upper lobe 0.4 cm nodular density with SUV of 1.13 and another 0.2 cm nodular density in the right posterior apex with SUV of 1.27. Calcified micronodules are present in the right lung. In the liver there was a 2.2 cm mass in anterior left lobe with SUV of 9.79. A 2 cm nodular density is present in the posterior wall of the urinary bladder with SUV of 6.13. no mass is identified in the left kidney and no osseous metastatic disease seen Patient has history of smoking but quit 31 years ago, but is a heavy smoker so he has secondhand smoking exposure. Denies alcohol use. Echocardiogram done prior to the treatment on November 03, 2020 showed borderline low ejection fraction of 53%. Mild diffuse hypokinesis of the left ventricle. Because of poor endocardial delineation, ejection pressure estimation could be misleading, further studies with contrast echo or MUGA scan was recommended Started on systemic chemotherapy with FOLFOX/pembrolizumab minus Herceptin due to borderline low ejection fraction on November 16, 2020. He tolerate it well. Mr. Platt is here today for 1 week follow-up. He did see Dr. Michaels on November 25, 2020 and he had tolerated his first cycle of FOLFOX well. He also received pembrolizumab at that time. His Herceptin was held because of borderline echocardiogram reported ejection fraction of 53% and was apparently a technically difficult study. MUGA scan has been recommended but has yet to be obtained. Mr. Platt reports no new concerns today. His day 15 counts from 12/02/2020 report a white count of 2.7 hemoglobin 13.1 platelets 191,000 but his ANC was reported at 740. His treatment is delayed today but request for a PA for Neupogen 480 mcg was placed on lab review and he is here today to start his Neupogen. He denies any fever or chills. He denies any cough, sore throat, runny nose or other signs of infection. He denies any urinary complaints. He denies any skin rashes or lesions. He states that he had a little diarrhea and cold-induced neuropathy with cycle 1 FOLFOX but that is all resolved and was not an issue. He denies any nausea or vomiting. He denies any pain. His ECOG remains at 0. Past Medical History: Hypertension Osteoarthritis Type II diabetes Past Surgical History: Cataract excision Left subclavian PowerPort placement per Dr. Barrera ([facility]) in 2020 Covid vaccine #1 moderna in 2020 Appendectomy in 1984 Thyroid surgery in 1967 Allergies: No Known Allergies. Medications: Esomeprazole Magnesium 1 Tablet (of 40 mg) Capsule Delayed Release Oral daily Losartan Potassium 1 Tablet (of 100 mg) Oral daily Family History: Mr. Platt's mother at age 72: heart disease, and type II diabetes. Mr. Platt's father at age 80. Social History: Mr. Platt is . He is a smoker, current status unknown.He has no history of drinking. Review Of Symptoms: <See Above> Vital Signs: Performed on Dec 03, 2020 08:20 Height - 69.00 in Weight - 190.2 lbs (HIGH) BSA - 2.02 sq.m BMI - 28.09 Temperature - 96.3 F (LOW) Pulse - 107 /min (HIGH) Respiration - 18 /min BP - 126/74 mm(hg) O2 Sat - 99 % Pain - 0 Fatigue - 0,0 - Fully active, able to carry on all predisease activities without restrictions. (ECOG) Physical Examination: Constitutional Alert, oriented, no acute distress. Skin pink, warm and dry. Head Normocephalic; atraumatic. Eyes Conjunctivae and sclerae are clear and without icterus. Pupils are reactive and equal. ENMT No oral exudates, ulcers, masses, thrush or mucositis. Oropharynx clear. Tongue normal. Neck Supple without masses or thyromegaly. No jugular venous distension. Hematologic/Lymphatic No petechiae or purpura. No tender or palpable lymph nodes in the cervical or supraclavicular areas. Respiratory Lungs are clear to auscultation without rhonchi or wheezing. Cardiovascular Regular rate and rhythm of heart without murmurs,clicks, gallops or rubs. Chest Left subclavian venous access device insertion site is unremarkable. Abdomen Non-tender, non-distended, no masses or ascites. Good bowel sounds noted in all quads. No guarding or rebound tenderness. No pulsatile masses. Back/Spine Non-tender to palpation. Extremities No visible deformities, no cyanosis, clubbing or edema. Musculoskeletal No tenderness or swelling, normal range of motion without obvious weakness. Integumentary No rashes or lesions. Neurologic No sensory or motor deficits, normal cerebellar function, normal gait. Psychiatric Alert and oriented times three. Coherent speech. Verbalizes understanding of our discussions today. Laboratory:Test performed on Dec 14, 2020 08:22 Sodium 139 mmol/L Potassium 4.1 mmol/L Chloride 103 mmol/L CO2 29 mmol/L Anion Gap 11.1 BUN 14 mg/dL Creatinine 0.6 mg/dL Cr Clearance (Est) 139.6600 mL/min Glucose 132 mg/dL Osmolality - Calculated 290 mOsm/kg Calcium 9.1 mg/dL Protein, Total 6.6 g/dL Albumin 3.7 g/dL Globulin 2.9 g/dL Bilirubin, Total 0.4 mg/dL ALT (SGPT) 11 U/L AST (SGOT) 15 U/L Alkaline Phosphatase 99 IU/L WBC 5.9 10 3/uL RBC 4.27 10 6/uL HGB 13.0 g/dL HCT 39.8 % MCV 93.2 fl MCH 30.4 pg MCHC 32.7 g/dL RDW 13.9 % Platelet Count 185 10 3/cmm MPV 10.7 fL Neutrophils 4.08 10 3/uL Lymphocytes 1.2 10 3/uL Monocytes 0.3 10 3/uL Eosinophils 0.1 10 3/uL Basophils 0.1 10 3/uL Neutrophil % 69.8 % Lymphocyte % 21.0 % Monocyte % 5.8 % Eosinophil % 1.7 % Basophils % 1.4 % NRBC % 0 % Impression: Metastatic Invasive adenocarcinoma, moderate differentiated involving distal esophagus per EGD done on September 25, 2020, HER-2/emanuel positive. CT PET scan done on October 22, 2020 showed distal esophageal thickening wall with marked increase in metabolic activity. Paraesophageal lymph nodes in the inferior mediastinum. A single liver lesion is observed consistent with metastatic disease in anterior left lobe. Pulmonary micronodules are indeterminant for early metastatic disease. Head and neck and left axillary lymph nodes all may be reactive. CT chest abdomen pelvis done on October 12, 2020 shows long segment thickening and masslike structure in the distal esophagus. Mass measures about 5 cm. Transverse diameter is of 3.6 cm. There are few adjacent small but indeterminate lymph nodes in the paraesophageal fat. No evidence of metastatic disease to the liver or adrenal glands. 3 mm noncalcified nodule posterior right upper lobe. Left renal mass measuring 11 mm is and solid in appearance. Early renal cell neoplasm not excluded, follow-up recommended Progressive dysphagia, due to above Hypertension Plan/Problems Addressed at this Visit: 1. Metastatic Invasive adenocarcinoma, moderate differentiated involving distal esophagus per EGD done on September 25, 2020, HER-2/emanuel positive. CT PET scan done on October 22, 2020 showed distal esophageal thickening wall with marked increase in metabolic activity. Paraesophageal lymph nodes in the inferior mediastinum. A single liver lesion is observed consistent with metastatic disease in anterior left lobe. Pulmonary micronodules are indeterminant for early metastatic disease. Head and neck and left axillary lymph nodes all may be reactive. CT chest abdomen pelvis done on October 12, 2020 shows long segment thickening and masslike structure in the distal esophagus. Mass measures about 5 cm. Transverse diameter is of 3.6 cm. There are few adjacent small but indeterminate lymph nodes in the paraesophageal fat. No evidence of metastatic disease to the liver or adrenal glands. 3 mm noncalcified nodule posterior right upper lobe. Left renal mass measuring 11 mm is and solid in appearance. Early renal cell neoplasm not excluded, follow-up recommended Progressive dysphagia, due to above. Clinically, patient doing well with no new signs symptoms suggestive of disease progression, tolerated first cycle of chemotherapy with FOLFOX/pembrolizumab well, his follow-up lab work-up is within normal range, his dysphagia is stable but somewhat improving. He now has neutropenia with an ANC of 740 cycle 2 FOLFOX. A. Hold cycle 2 FOLFOX due to chemotherapy-induced neutropenia. ANC today is 740. B. Proceed with Neupogen 480 mcg daily x2 and recheck his CBC on 12/07/[address] Li's office in [place], [place]. Hopefully we can plan to do his FOLFOX at that time. C. His MUGA scan has yet to be obtained. The Herceptin is currently on hold until the MUGA scan results are available. D. 12/02/2020 labs were reviewed in detail and discussed with Mr. Platt and a copy was given to him. WBC 2.7, hemoglobin 13.1, platelets 291,000, ANC is 740. Potassium 4.1 random glucose 104 creatinine 0.5 LFTs are normal. E. We will plan to reassess his labs on 1024 as indicated above and determine if he can continue his FOLFOX at that time. F. Mr. Platt was instructed to contact us in interim should questions or problems arise. He has been advised to monitor for signs and symptoms of infection including but not limited to 2 temperature 100.4 or greater, productive cough, urinary frequency/burning, skin lesions that are red, swollen and draining or any other symptoms that concern him. G. We will make sure that he has Levaquin 500 mg to take orally in the event that he runs fever or has any signs or symptoms of infection. 2. Chemotherapy induced neutropenia-see above. Signed By: Hang Evangelista-, AOCNP Merlyn Michaels MD <<Signature on File>>
== END 2020-12-13 23:59 | disposition home or self-care (01) ==
LOC: ONCMED 08:00
PROVIDERS: PCP Family Medicine; Visit Provider Internal Medicine Hematology & Oncology
DX: Z51.12 Encounter for antineoplastic immunotherapy (principal); Z51.11 Encounter for antineoplastic chemotherapy; C15.5 Malignant neoplasm of lower third of esophagus; C77.0 Secondary and unspecified malignant neoplasm of lymph nodes of head, face and neck; C78.7 Secondary malignant neoplasm of liver and intrahepatic bile duct; R13.10 Dysphagia, unspecified; I10 Essential (primary) hypertension; Z79.899 Other long term (current) drug therapy
CPT/HCPCS: 36591; 80053; 85025; 96367; 96368; 96372; 96411; 96413; 96415; 96416; 96417; 99214; 99215; J0640; J1100; J2469; J7050; J9190; J9263; J9271; Q5101

== ENCOUNTER 2021-01-11 06:32 | Outpatient (RCR) | payer MEDICARE, SELFPAY ==
[2020-12-14 09:02] LABS: Basophils # 0.1 10^3/uL (0.0-0.1); Basophils % 1.4 %; Eosinophils # 0.1 10^3/uL (0.0-0.8); Eosinophils % 1.7 %; Hematocrit 39.8 % (42.0-52.0); Lymphocytes # 1.2 10^3/uL (0.8-4.8); Mean Corpuscular HGB Conc 32.7 g/dL (30.0-36.0); Mean Corpuscular Hemoglobin 30.4 pg (28.0-34.0); Mean Corpuscular Volume 93.2 fl (80-94); Mean Platelet Volume 10.7 fL (7.4-10.4); Monocytes # 0.3 10^3/uL (0.2-0.9); Monocytes % 5.8 %; Neutrophils # 4.08 10^3/uL (1.8-7.7); Neutrophils % 69.8 %; Nucleated Red Blood Cells % 0 %; Platelet Count 185 10^3/cmm (130-400); Red Blood Count 4.27 10^6/uL (4.1-5.3); Red Cell Distribution Width 13.9 % (12.1-15.1); White Blood Count 5.9 10^3/uL (4.0-10.0)
[2020-12-14 09:26] LABS: Alanine Aminotransferase 11 U/L (0-41); Albumin Level 3.7 g/dL (3.5-5.2); Alkaline Phosphatase 99 IU/L (40-130); Anion Gap 11.1 (5-19); Aspartate Amino Transferase 15 U/L (0-40); Blood Urea Nitrogen 14 mg/dL (8-23); Calcium 9.1 mg/dL (8.5-10.5); Carbon Dioxide 29 mmol/L (22-29); Chloride 103 mmol/L (98-107); Globulin 2.9 g/dL (1.3-4.6); Glucose 132 mg/dL (65-115); Osmolality Calculated 290 mOsm/kg (285-295); Potassium 4.1 mmol/L (3.5-5.1); Sodium 139 mmol/L (136-145); Total Bilirubin 0.4 mg/dL (0.15-1.2); Total Protein 6.6 g/dL (6.6-8.7)
[2020-12-14] MEDS: sodium chloride 0.9% 250 ML IV (10:59)
[2020-12-14] MEDS: diphenhydrAMINE 50 mg/mL SDV 1mL 25 MG IV (10:59)
[2020-12-14] MEDS: acetaminophen 325 mg Tablet 650 MG PO (11:03)
[2020-12-14] MEDS: palonosetron 0.25 mg/5 mL SDV IV (11:03)
[2020-12-14] MEDS: dextrose 5% 250 ML 75 ML IV (12:57)
[2020-12-16] MEDS: pegfilgrastim-bmez 6 mg/0.6 mL SYR SUBCUT (15:10)
[2020-12-25 11:24] LABS: Basophils # 0.1 10^3/uL (0.0-0.1); Basophils % 0.8 %; Eosinophils # 0.3 10^3/uL (0.0-0.8); Eosinophils % 2.4 %; Hematocrit 37.3 % (42.0-52.0); Hemoglobin 12.7 g/dL (11.7-16.6); Lymphocytes % 16.6 %; Mean Corpuscular Hemoglobin 30.9 pg (28.0-34.0); Mean Corpuscular Volume 90.8 fl (80-94); Mean Platelet Volume 10.4 fL (7.4-10.4); Monocytes # 1.2 10^3/uL (0.2-0.9); Neutrophils # 8.18 10^3/uL (1.8-7.7); Neutrophils % 69.1 %; Nucleated Red Blood Cells % 0 %; Platelet Count 193 10^3/cmm (130-400); Red Blood Count 4.11 10^6/uL (4.1-5.3); Red Cell Distribution Width 14.7 % (12.1-15.1); White Blood Count 11.9 10^3/uL (4.0-10.0)
[2020-12-25 11:46] LABS: Alanine Aminotransferase 15 U/L (0-41); Albumin Level 3.8 g/dL (3.5-5.2); Alkaline Phosphatase 150 IU/L (40-130); Anion Gap 12.9 (5-19); Aspartate Amino Transferase 19 U/L (0-40); Blood Urea Nitrogen 8 mg/dL (8-23); Calcium 8.7 mg/dL (8.5-10.5); Carbon Dioxide 29 mmol/L (22-29); Chloride 101 mmol/L (98-107); Globulin 2.8 g/dL (1.3-4.6); Glucose 89 mg/dL (65-115); Osmolality Calculated 286 mOsm/kg (285-295); Potassium 3.9 mmol/L (3.5-5.1); Sodium 139 mmol/L (136-145); Total Bilirubin 0.2 mg/dL (0.15-1.2); Total Protein 6.6 g/dL (6.6-8.7)
[2020-12-28] MEDS: acetaminophen 325 mg Tablet 650 MG PO (09:30)
[2020-12-28] MEDS: ondansetron 2 mg/ML SDV 2 mL 8 MG IV (09:35)
[2020-12-28] MEDS: sodium chloride 0.9% 250 ML 75 ML IV (09:35)
[2020-12-28] MEDS: diphenhydrAMINE 50 mg/mL SDV 1mL 25 MG IV (09:38)
[2020-12-28] MEDS: dextrose 5% 250 ML 75 ML IV (11:43)
[2020-12-30] MEDS: pegfilgrastim-bmez 6 mg/0.6 mL SYR SUBCUT (14:15)
--- NOTE | 2021-01-10 16:32 | ONC FU_ITS ---
Anastasiya Ybarra Patient Note Patient: Jatinder Platt Unit #: [id number]: 1950 Dictated By: Hang EvangelistaDate of Visit: Dec 28, 2020 Onc MED Follow-Up/Prog Note Chief Complaint: Esophageal cancer History of Present Illness: Mr. Platt is a 70-year-old gentleman with a history of progressive dysphagia and weight loss. He underwent EGD on September 25, 2020 which showed in the lower third esophagus, a moderate, malignant appearing, intrinsic stenosis was noted. The stenosis was traversed, partially obstructing, medium sized, friable, fungating, circumferential. An actively bleeding ulcerated mass was seen. 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 CT chest abdomen pelvis on September 25, 2020 showed a long segment thickening and masslike structure in the distal esophagus. Measures at least 5 cm, transverse diameter about 3.6 cm. There are few adjacent small but indeterminant lymph nodes in the paraesophageal fat. No evidence of metastatic disease to the liver or adrenal gland. A 3 mm noncalcified nodule posterior right upper lobe. Left renal mass measuring 11 mm and is solid in appearance. Early renal cell neoplasm not excluded and follow-up was recommended. Staging PET/CT scan from October 22, 2020 reported a dilated distal esophagus with thickened wall with a maximum SUV of 13.13. Lower mediastinal paraesophageal lymph nodes are present., Size about 0.9 cm with SUV of 6.03. Posterior right upper lobe 0.4 cm nodular density with SUV of 1.13 and another 0.2 cm nodular density in the right posterior apex with SUV of 1.27. Calcified micronodules are present in the right lung. In the liver there was a 2.2 cm mass in anterior left lobe with SUV of 9.79. A 2 cm nodular density is present in the posterior wall of the urinary bladder with SUV of 6.13. no mass is identified in the left kidney and no osseous metastatic disease seen Patient has history of smoking but quit 31 years ago, but is a heavy smoker so he has secondhand smoking exposure. Denies alcohol use. Echocardiogram done prior to the treatment on November 03, 2020 showed borderline low ejection fraction of 53%. Mild diffuse hypokinesis of the left ventricle. Because of poor endocardial delineation, ejection pressure estimation could be misleading, further studies with contrast echo or MUGA scan was recommended Started on systemic chemotherapy with FOLFOX/pembrolizumab minus Herceptin due to borderline low ejection fraction on November 16, 2020. He tolerate it well. Mr. Platt is here today for 1 week follow-up. He did see Dr. Michaels on November 25, 2020 and he had tolerated his first cycle of FOLFOX well. He also received pembrolizumab at that time. His Herceptin was held because of borderline echocardiogram reported ejection fraction of 53% and was apparently a technically difficult study. MUGA scan has been recommended but has yet to be obtained. Mr. Platt is here today for followup. He is due for cycle 3 day 1 FOLFOX. He was given trastuzumab bio similar on 12/14/2020. He did require Neupogen with cycle 1 and was approved for Neulasta biosimilar with cycle 2 which he received on 12/16/2020. He has tolerated it well thus far. He reports no new concerns today. He denies any fever or chills. He denies any cough, sore throat, runny nose or other signs of infection. He denies any urinary complaints. He denies any skin rashes or lesions. He states that he had a little diarrhea and cold-induced neuropathy with cycle 1 & 2 FOLFOX but that is all resolved and was not an issue. He denies any nausea or vomiting. He states he does take Compazine before he eats and this seems to help tremendously with any nausea that he has been having. He also reports that he is off all of his diabetic medication. He is using esmemprazole 40 mg daily and has had some breakthrough gastritis symptoms. He remains on meloxicam as well. He denies any pain. His ECOG remains at 0. Past Medical History: Hypertension Osteoarthritis Type II diabetes Past Surgical History: Cataract excision Left subclavian PowerPort placement per Dr. Barrera ([facility]) in 2020 Covid vaccine #1 moderna in 2020 Appendectomy in 1984 Thyroid surgery in 1967 Allergies: No Known Allergies. Medications: Esomeprazole Magnesium 1 Tablet (of 40 mg) Capsule Delayed Release Oral daily Losartan Potassium 1 Tablet (of 100 mg) Oral daily Family History: Mr. Platt's mother at age 72: heart disease, and type II diabetes. Mr. Platt's father at age 80. Social History: Mr. Platt is . He is a smoker, current status unknown.He has no history of drinking. Review Of Symptoms: <See Above> Vital Signs: Performed on Dec 28, 2020 15:25 Height - 69.00 in Temperature - 97.5 F (LOW) Pulse - 61 /min Respiration - 18 /min BP - 144/82 mm(hg) (HIGH) O2 Sat - 98 % Performed on Dec 28, 2020 08:48 Height - 69.00 in Weight - 188.2 lbs (LOW) BSA - 2.01 sq.m BMI - 27.79 Temperature - 96.7 F (LOW) Pulse - 81 /min Respiration - 18 /min BP - 161/73 mm(hg) (HIGH) O2 Sat - 98 % Pain - 0 Fatigue - 3,1 - No physically strenuous activity, but ambulatory and able to carry out light or sedentary work (e.g. office work, light house work). (ECOG) Physical Examination: Constitutional Alert, oriented, no acute distress. Skin pink, warm and dry. Head Normocephalic; atraumatic. Eyes Conjunctivae and sclerae are clear and without icterus. Pupils are reactive and equal. ENMT No oral exudates, ulcers, masses, thrush or mucositis. Oropharynx clear. Tongue normal. Neck Supple without masses or thyromegaly. No jugular venous distension. Hematologic/Lymphatic No petechiae or purpura. No tender or palpable lymph nodes in the cervical or supraclavicular areas. Respiratory Lungs are clear to auscultation without rhonchi or wheezing. Cardiovascular Regular rate and rhythm of heart without murmurs,clicks, gallops or rubs. Chest Left subclavian venous access device insertion site is unremarkable. Abdomen Non-tender, non-distended, no masses or ascites. Good bowel sounds noted in all quads. No guarding or rebound tenderness. No pulsatile masses. Back/Spine Non-tender to palpation. Extremities No visible deformities, no cyanosis, clubbing or edema. Musculoskeletal No tenderness or swelling, normal range of motion without obvious weakness. Integumentary No rashes or lesions. Neurologic No sensory or motor deficits, normal cerebellar function, normal gait. Psychiatric Alert and oriented times three. Coherent speech. Verbalizes understanding of our discussions today. Laboratory:Test performed on Dec 14, 2020 08:22 Sodium 139 mmol/L Potassium 4.1 mmol/L Chloride 103 mmol/L CO2 29 mmol/L Anion Gap 11.1 BUN 14 mg/dL Creatinine 0.6 mg/dL Cr Clearance (Est) 139.6600 mL/min Glucose 132 mg/dL Osmolality - Calculated 290 mOsm/kg Calcium 9.1 mg/dL Protein, Total 6.6 g/dL Albumin 3.7 g/dL Globulin 2.9 g/dL Bilirubin, Total 0.4 mg/dL ALT (SGPT) 11 U/L AST (SGOT) 15 U/L Alkaline Phosphatase 99 IU/L WBC 5.9 10 3/uL RBC 4.27 10 6/uL HGB 13.0 g/dL HCT 39.8 % MCV 93.2 fl MCH 30.4 pg MCHC 32.7 g/dL RDW 13.9 % Platelet Count 185 10 3/cmm MPV 10.7 fL Neutrophils 4.08 10 3/uL Lymphocytes 1.2 10 3/uL Monocytes 0.3 10 3/uL Eosinophils 0.1 10 3/uL Basophils 0.1 10 3/uL Neutrophil % 69.8 % Lymphocyte % 21.0 % Monocyte % 5.8 % Eosinophil % 1.7 % Basophils % 1.4 % NRBC % 0 % Impression: Metastatic Invasive adenocarcinoma, moderate differentiated involving distal esophagus per EGD done on September 25, 2020, HER-2/emanuel positive. CT PET scan done on October 22, 2020 showed distal esophageal thickening wall with marked increase in metabolic activity. Paraesophageal lymph nodes in the inferior mediastinum. A single liver lesion is observed consistent with metastatic disease in anterior left lobe. Pulmonary micronodules are indeterminant for early metastatic disease. Head and neck and left axillary lymph nodes all may be reactive. CT chest abdomen pelvis done on October 12, 2020 shows long segment thickening and masslike structure in the distal esophagus. Mass measures about 5 cm. Transverse diameter is of 3.6 cm. There are few adjacent small but indeterminate lymph nodes in the paraesophageal fat. No evidence of metastatic disease to the liver or adrenal glands. 3 mm noncalcified nodule posterior right upper lobe. Left renal mass measuring 11 mm is and solid in appearance. Early renal cell neoplasm not excluded, follow-up recommended Progressive dysphagia, due to above Hypertension Plan/Problems Addressed at this Visit: 1. Metastatic Invasive adenocarcinoma, moderate differentiated involving distal esophagus per EGD done on September 25, 2020, HER-2/emanuel positive. CT PET scan done on October 22, 2020 showed distal esophageal thickening wall with marked increase in metabolic activity. Paraesophageal lymph nodes in the inferior mediastinum. A single liver lesion is observed consistent with metastatic disease in anterior left lobe. Pulmonary micronodules are indeterminant for early metastatic disease. Head and neck and left axillary lymph nodes all may be reactive. CT chest abdomen pelvis done on October 12, 2020 shows long segment thickening and masslike structure in the distal esophagus. Mass measures about 5 cm. Transverse diameter is of 3.6 cm. There are few adjacent small but indeterminate lymph nodes in the paraesophageal fat. No evidence of metastatic disease to the liver or adrenal glands. 3 mm noncalcified nodule posterior right upper lobe. Left renal mass measuring 11 mm is and solid in appearance. Early renal cell neoplasm not excluded, follow-up recommended Progressive dysphagia, due to above. Clinically, patient doing well with no new signs symptoms suggestive of disease progression, tolerated first cycle of chemotherapy with FOLFOX/pembrolizumab well, his follow-up lab work-up is within normal range, his dysphagia is stable but somewhat improving. He had neutropenia with an ANC of 740 causing a slight delay with cycle 2 FOLFOX. A. Proceed with cycle 3 FOLFOX/Herceptin/Keytruda-this is day 1. His Aloxi was changed to just ondansetron 8 mg due to suspected side effects of the Aloxi particularly constipation. B. Continue with Neulasta/Neulasta bio similar as he does not have any neutropenia. C. His MUGA scan has yet to be obtained. The Herceptin is currently on hold until the MUGA scan results are available. D. Labs from 12/25/2020 reviewed in detail discussed with Mr. Platt and a copy was given to him. WBC 11.9 hemoglobin 12.7 platelets are 93,000 ANC is 8180. Potassium 3.9 random glucose was 89 creatinine 0.5 LFTs are normal with an alk phos of 150. Weight is stable at 188.2. E. He may increase the esomeprazole to 40 mg twice daily as indicated for his gastritis symptoms. F. He will be due back in 2 weeks with CBC CMP which time he will be due for FOLFOX/Herceptin. He will be due back in 6 weeks for FOLFOX Herceptin Keytruda. He will need CBC CMP and TSH at that time. G. Mr. Platt was instructed to contact us in interim should questions or problems arise. Signed By: Hang Evangelista-, AOCNP Merlyn Michaels MD <<Signature on File>>
[2021-01-11 09:20] LABS: Basophils % 0.3 %; Eosinophils # 0.1 10^3/uL (0.0-0.8); Eosinophils % 1.1 %; Hemoglobin 11.8 g/dL (11.7-16.6); Lymphocytes # 1.8 10^3/uL (0.8-4.8); Lymphocytes % 16.4 %; Mean Corpuscular HGB Conc 34.7 g/dL (30.0-36.0); Mean Corpuscular Hemoglobin 30.6 pg (28.0-34.0); Mean Corpuscular Volume 88.1 fl (80-94); Mean Platelet Volume 10.7 fL (7.4-10.4); Monocytes % 9.2 %; Neutrophils # 6.93 10^3/uL (1.8-7.7); Neutrophils % 64.7 %; Nucleated Red Blood Cells % 0.4 %; Platelet Count 128 10^3/cmm (130-400); Red Blood Count 3.86 10^6/uL (4.1-5.3); Red Cell Distribution Width 16.2 % (12.1-15.1); White Blood Count 10.7 10^3/uL (4.0-10.0)
[2021-01-11 09:22] LABS: Alanine Aminotransferase 13 U/L (0-41); Albumin Level 3.6 g/dL (3.5-5.2); Alkaline Phosphatase 176 IU/L (40-130); Anion Gap 11.4 (5-19); Aspartate Amino Transferase 18 U/L (0-40); Blood Urea Nitrogen 10 mg/dL (8-23); Calcium 8.6 mg/dL (8.5-10.5); Carbon Dioxide 30 mmol/L (22-29); Chloride 106 mmol/L (98-107); Globulin 2.7 g/dL (1.3-4.6); Glucose 92 mg/dL (65-115); Osmolality Calculated 297 mOsm/kg (285-295); Potassium 3.4 mmol/L (3.5-5.1); Sodium 144 mmol/L (136-145); Total Bilirubin 0.3 mg/dL (0.15-1.2); Total Protein 6.3 g/dL (6.6-8.7)
[2021-01-11 10:03] LABS: Slide Review Slide Review Perform
[2021-01-11] MEDS: ondansetron 2 mg/ML SDV 2 mL 8 MG IVP (10:59)
[2021-01-11] MEDS: acetaminophen 325 mg Tablet 650 MG PO (11:00)
[2021-01-11] MEDS: diphenhydrAMINE 50 mg/mL SDV 1mL 25 MG IV (11:01)
[2021-01-11] MEDS: dextrose 5% 250 ML 75 ML IV (11:01)
== END 2021-01-12 23:59 | disposition home or self-care (01) ==
LOC: ONCMED 06:32
PROVIDERS: PCP Family Medicine; Visit Provider Internal Medicine Hematology & Oncology
DX: Z51.12 Encounter for antineoplastic immunotherapy (principal); Z51.11 Encounter for antineoplastic chemotherapy; C15.5 Malignant neoplasm of lower third of esophagus; R59.0 Localized enlarged lymph nodes; K76.0 Fatty (change of) liver, not elsewhere classified; R91.1 Solitary pulmonary nodule; R13.10 Dysphagia, unspecified; I10 Essential (primary) hypertension; Z79.899 Other long term (current) drug therapy; Z92.21 Personal history of antineoplastic chemotherapy
CPT/HCPCS: 36591; 80053; 85025; 96367; 96368; 96372; 96375; 96411; 96413; 96415; 96416; 96417; 96523; 99215; J0640; J1100; J1200; J2405; J2469; J7050; J9190; J9263; J9271; Q5112; Q5120

== ENCOUNTER 2021-02-10 | Outpatient (CLI) | payer MEDICARE, SELFPAY | END 2021-02-10 00:01 | disposition home or self-care (01) | LOC: ONCMED 08-10 10:21 | PROVIDERS: PCP Family Medicine; Visit Provider Internal Medicine Hematology & Oncology | DX: C15.5 Malignant neoplasm of lower third of esophagus (principal); Z45.2 Encounter for adjustment and management of vascular access device; Z79.899 Other long term (current) drug therapy | CPT/HCPCS: 96372; 96523 ==

== ENCOUNTER 2021-02-10 06:46 | Outpatient (RCR) | payer MEDICARE, SELFPAY ==
[2021-01-13] MEDS: pegfilgrastim-bmez 6 mg/0.6 mL SYR SUBCUT (13:58)
[2021-01-25 08:28] LABS: Basophils # 0.1 10^3/uL (0.0-0.1); Basophils % 1.1 %; Eosinophils # 0.1 10^3/uL (0.0-0.8); Hematocrit 33.5 % (42.0-52.0); Hemoglobin 11.3 g/dL (11.7-16.6); Lymphocytes # 1.9 10^3/uL (0.8-4.8); Lymphocytes % 15.9 %; Mean Corpuscular HGB Conc 33.7 g/dL (30.0-36.0); Mean Corpuscular Hemoglobin 30.7 pg (28.0-34.0); Mean Platelet Volume 10.6 fL (7.4-10.4); Monocytes # 1.2 10^3/uL (0.2-0.9); Monocytes % 10.2 %; Neutrophils # 7.66 10^3/uL (1.8-7.7); Nucleated Red Blood Cells % 0.2 %; Platelet Count 152 10^3/cmm (130-400); Red Blood Count 3.68 10^6/uL (4.1-5.3); Red Cell Distribution Width 18.2 % (12.1-15.1); White Blood Count 11.6 10^3/uL (4.0-10.0)
[2021-01-25 08:40] LABS: Alanine Aminotransferase 13 U/L (0-41); Albumin Level 3.5 g/dL (3.5-5.2); Alkaline Phosphatase 161 IU/L (40-130); Anion Gap 11.2 (5-19); Aspartate Amino Transferase 18 U/L (0-40); Blood Urea Nitrogen 9 mg/dL (8-23); Calcium 8.3 mg/dL (8.5-10.5); Carbon Dioxide 31 mmol/L (22-29); Chloride 103 mmol/L (98-107); Globulin 2.4 g/dL (1.3-4.6); Glucose 86 mg/dL (65-115); Osmolality Calculated 292 mOsm/kg (285-295); Potassium 3.2 mmol/L (3.5-5.1); Sodium 142 mmol/L (136-145); Total Bilirubin 0.3 mg/dL (0.15-1.2); Total Protein 5.9 g/dL (6.6-8.7)
[2021-01-25 09:23] LABS: Neutrophils % 71.8 %
[2021-01-25] MEDS: ondansetron 2 mg/ML SDV 2 mL 8 MG IVP (10:35)
[2021-01-25] MEDS: diphenhydrAMINE 50 mg/mL SDV 1mL 25 MG IV (10:37)
[2021-01-25] MEDS: acetaminophen 325 mg Tablet 650 MG PO (10:40)
[2021-01-25] MEDS: sodium chloride 0.9% (100 ml) 100 ML 30 ML (10:40)
[2021-01-25] MEDS: dextrose 5% 250 ML 75 ML IV (11:50)
--- NOTE | 2021-01-25 17:25 | ONC FU_ITS ---
Dr. Michaels follow up note Patient: Jatinder Platt Unit #: [id number]: 1950 Dicatated By: Merlyn Michaels M.D.Date of Visit:Jan 25, 2021 Onc Med Follow-up/Prog Note History of Present Illness: Mr. Platt is a 70-year-old gentleman with a history of progressive dysphagia and weight loss. He underwent EGD on September 25, 2020 which showed in the lower third esophagus, a moderate, malignant appearing, intrinsic stenosis was noted. The stenosis was traversed, partially obstructing, medium sized, friable, fungating, circumferential. An actively bleeding ulcerated mass was seen. 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 CT chest abdomen pelvis on September 25, 2020 showed a long segment thickening and masslike structure in the distal esophagus. Measures at least 5 cm, transverse diameter about 3.6 cm. There are few adjacent small but indeterminant lymph nodes in the paraesophageal fat. No evidence of metastatic disease to the liver or adrenal gland. A 3 mm noncalcified nodule posterior right upper lobe. Left renal mass measuring 11 mm and is solid in appearance. Early renal cell neoplasm not excluded and follow-up was recommended. Staging PET/CT scan from October 22, 2020 reported a dilated distal esophagus with thickened wall with a maximum SUV of 13.13. Lower mediastinal paraesophageal lymph nodes are present., Size about 0.9 cm with SUV of 6.03. Posterior right upper lobe 0.4 cm nodular density with SUV of 1.13 and another 0.2 cm nodular density in the right posterior apex with SUV of 1.27. Calcified micronodules are present in the right lung. In the liver there was a 2.2 cm mass in anterior left lobe with SUV of 9.79. A 2 cm nodular density is present in the posterior wall of the urinary bladder with SUV of 6.13. no mass is identified in the left kidney and no osseous metastatic disease seen Patient has history of smoking but quit 31 years ago, but is a heavy smoker so he has secondhand smoking exposure. Denies alcohol use. Echocardiogram done prior to the treatment on November 03, 2020 showed borderline low ejection fraction of 53%. Mild diffuse hypokinesis of the left ventricle. Because of poor endocardial delineation, ejection pressure estimation could be misleading, further studies with contrast echo or MUGA scan was recommended Started on systemic chemotherapy with FOLFOX/pembrolizumab minus Herceptin due to borderline low ejection fraction on November 16, 2020. He tolerate it well. Mr. Platt is here today for 1 week follow-up. He did see us on November 25, 2020 and he had tolerated his first cycle of FOLFOX well. He also received pembrolizumab at that time. His Herceptin was held because of borderline echocardiogram reported ejection fraction of 53% and was apparently a technically difficult study. MUGA scan has been recommended but has yet to be obtained. Came for follow-up, denies any specific complaint except sometimes choking if he eat and swallow too fast. Otherwise no hemoptysis or hematemesis, no nausea or vomiting, no diarrhea constipation, no peripheral numbness, no fever chills, no jaundice, no abdominal pain, tolerating systemic therapy with FOLFOX/Herceptin/pembrolizumab well Medications: Esomeprazole Magnesium 1 Tablet (of 40 mg) Capsule Delayed Release Oral daily, Losartan Potassium 1 Tablet (of 100 mg) Oral daily Allergies: No Known Allergies. Review of Systems: Review of Systems is not available for this patient. Vital Signs: Performed on Jan 25, 2021 17:00 Height - 69.00 in Weight - 196.2 lbs (HIGH) BSA - 2.05 sq.m BMI - 28.97 Temperature - 97.1 F (LOW) Pulse - 104 /min (HIGH) Respiration - 16 /min BP - 173/76 mm(hg) (HIGH) O2 Sat - 97 % Pain - 0 Fatigue - 5 Performance Status: 0 - Fully active, able to carry on all predisease activities without restrictions. (ECOG) Physical Examination: ENMT - No mouth sores, no thrush, no jaundice, Respiratory - Lungs are clear to auscultation, Cardiovascular - Regular rate and rhythm of heart, Abdomen - Soft, bowel sounds present, Extremities - No visible edema. Lab/Imaging: Test performed on Dec 14, 2020 08:22 Sodium 139 mmol/L Potassium 4.1 mmol/L Chloride 103 mmol/L CO2 29 mmol/L Anion Gap 11.1 BUN 14 mg/dL Creatinine 0.6 mg/dL Cr Clearance (Est) 139.6600 mL/min Glucose 132 mg/dL Osmolality - Calculated 290 mOsm/kg Calcium 9.1 mg/dL Protein, Total 6.6 g/dL Albumin 3.7 g/dL Globulin 2.9 g/dL Bilirubin, Total 0.4 mg/dL ALT (SGPT) 11 U/L AST (SGOT) 15 U/L Alkaline Phosphatase 99 IU/L WBC 5.9 10 3/uL RBC 4.27 10 6/uL HGB 13.0 g/dL HCT 39.8 % MCV 93.2 fl MCH 30.4 pg MCHC 32.7 g/dL RDW 13.9 % Platelet Count 185 10 3/cmm MPV 10.7 fL Neutrophils 4.08 10 3/uL Lymphocytes 1.2 10 3/uL Monocytes 0.3 10 3/uL Eosinophils 0.1 10 3/uL Basophils 0.1 10 3/uL Neutrophil % 69.8 % Lymphocyte % 21.0 % Monocyte % 5.8 % Eosinophil % 1.7 % Basophils % 1.4 % NRBC % 0 % Impression: Metastatic Invasive adenocarcinoma, moderate differentiated involving distal esophagus per EGD done on September 25, 2020, HER-2/emanuel positive. CT PET scan done on October 22, 2020 showed distal esophageal thickening wall with marked increase in metabolic activity. Paraesophageal lymph nodes in the inferior mediastinum. A single liver lesion is observed consistent with metastatic disease in anterior left lobe. Pulmonary micronodules are indeterminant for early metastatic disease. Head and neck and left axillary lymph nodes all may be reactive. CT chest abdomen pelvis done on October 12, 2020 shows long segment thickening and masslike structure in the distal esophagus. Mass measures about 5 cm. Transverse diameter is of 3.6 cm. There are few adjacent small but indeterminate lymph nodes in the paraesophageal fat. No evidence of metastatic disease to the liver or adrenal glands. 3 mm noncalcified nodule posterior right upper lobe. Left renal mass measuring 11 mm is and solid in appearance. Early renal cell neoplasm not excluded, follow-up recommended Progressive dysphagia, due to above Hypertension Plan: Discussed with patient regarding his labs white blood count 11.6 hemoglobin 11.3 hematocrit 33.5 platelets 152,000 CMP within normal limit except potassium 3.2 Clinically, patient doing well with no new signs symptom suggestive of disease progression, will proceed with next dose of FOLFOX with biweekly Herceptin and then he will return to clinic in 2 weeks with CBC CMP and for next dose of FOLFOX/Herceptin/6 weekly pembrolizumab. As far as mild hypokalemia is concerned, we will check his magnesium level, if low, will consider supplement in the meantime we will get him liquid potassium supplement, he will take 20 mg daily for 3 days then as needed basis and will monitor with potassium level. Patient was advised to take small bites, chew well and swallow slowly to avoid choking. Signed By: Merlyn Michaels M.D. <<Signature on File>>
[2021-01-25 21:58] LABS: Magnesium 1.2 mg/dL (1.7-2.3)
[2021-01-27] MEDS: pegfilgrastim-bmez 6 mg/0.6 mL SYR SUBCUT (13:50)
[2021-02-08 08:37] LABS: Basophils # 0.1 10^3/uL (0.0-0.1); Basophils % 1.1 %; Eosinophils # 0.1 10^3/uL (0.0-0.8); Eosinophils % 1.8 %; Hematocrit 33.4 % (42.0-52.0); Hemoglobin 11.1 g/dL (11.7-16.6); Lymphocytes # 1.4 10^3/uL (0.8-4.8); Lymphocytes % 17.7 %; Mean Corpuscular HGB Conc 33.2 g/dL (30.0-36.0); Mean Corpuscular Hemoglobin 30.7 pg (28.0-34.0); Mean Corpuscular Volume 92.5 fl (80-94); Monocytes # 1.1 10^3/uL (0.2-0.9); Monocytes % 13.3 %; Neutrophils # 4.76 10^3/uL (1.8-7.7); Nucleated Red Blood Cells % 0 %; Platelet Count 151 10^3/cmm (130-400); Red Blood Count 3.61 10^6/uL (4.1-5.3); Red Cell Distribution Width 18.5 % (12.1-15.1)
[2021-02-08 08:49] LABS: Alanine Aminotransferase 15 U/L (0-41); Albumin Level 3.5 g/dL (3.5-5.2); Alkaline Phosphatase 166 IU/L (40-130); Anion Gap 11.8 (5-19); Aspartate Amino Transferase 14 U/L (0-40); Blood Urea Nitrogen 11 mg/dL (8-23); Calcium 8.4 mg/dL (8.5-10.5); Carbon Dioxide 27 mmol/L (22-29); Chloride 104 mmol/L (98-107); Globulin 2.6 g/dL (1.3-4.6); Glucose 99 mg/dL (65-115); Osmolality Calculated 287 mOsm/kg (285-295); Potassium 3.8 mmol/L (3.5-5.1); Sodium 139 mmol/L (136-145); Total Bilirubin 0.2 mg/dL (0.15-1.2); Total Protein 6.1 g/dL (6.6-8.7)
[2021-02-08 09:06] LABS: Slide Review Slide Review Perform
[2021-02-08 09:07] LABS: Neutrophils % 62.1 %
[2021-02-08] MEDS: acetaminophen 325 mg Tablet 650 MG PO (10:05)
[2021-02-08] MEDS: sodium chloride 0.9% 250 ML IV (10:07)
[2021-02-08] MEDS: diphenhydrAMINE 50 mg/mL SDV 1mL 25 MG IV (10:07)
[2021-02-08] MEDS: ondansetron 2 mg/ML SDV 2 mL 8 MG IVP (10:09)
[2021-02-08] MEDS: dextrose 5% 250 ML 75 ML IV (12:08)
--- NOTE | 2021-02-08 15:33 | ONC FU_ITS ---
Dr. Michaels follow up note Patient: Jatinder Platt Unit #: [id number]: 1950 Dicatated By: Merlyn Michaels M.D.Date of Visit:Feb 08, 2021 Onc Med Follow-up/Prog Note History of Present Illness: Mr. Platt is a 70-year-old gentleman with a history of progressive dysphagia and weight loss. He underwent EGD on September 25, 2020 which showed in the lower third esophagus, a moderate, malignant appearing, intrinsic stenosis was noted. The stenosis was traversed, partially obstructing, medium sized, friable, fungating, circumferential. An actively bleeding ulcerated mass was seen. 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 CT chest abdomen pelvis on September 25, 2020 showed a long segment thickening and masslike structure in the distal esophagus. Measures at least 5 cm, transverse diameter about 3.6 cm. There are few adjacent small but indeterminant lymph nodes in the paraesophageal fat. No evidence of metastatic disease to the liver or adrenal gland. A 3 mm noncalcified nodule posterior right upper lobe. Left renal mass measuring 11 mm and is solid in appearance. Early renal cell neoplasm not excluded and follow-up was recommended. Staging PET/CT scan from October 22, 2020 reported a dilated distal esophagus with thickened wall with a maximum SUV of 13.13. Lower mediastinal paraesophageal lymph nodes are present., Size about 0.9 cm with SUV of 6.03. Posterior right upper lobe 0.4 cm nodular density with SUV of 1.13 and another 0.2 cm nodular density in the right posterior apex with SUV of 1.27. Calcified micronodules are present in the right lung. In the liver there was a 2.2 cm mass in anterior left lobe with SUV of 9.79. A 2 cm nodular density is present in the posterior wall of the urinary bladder with SUV of 6.13. no mass is identified in the left kidney and no osseous metastatic disease seen Patient has history of smoking but quit 31 years ago, but is a heavy smoker so he has secondhand smoking exposure. Denies alcohol use. Echocardiogram done prior to the treatment on November 03, 2020 showed borderline low ejection fraction of 53%. Mild diffuse hypokinesis of the left ventricle. Because of poor endocardial delineation, ejection pressure estimation could be misleading, further studies with contrast echo or MUGA scan was recommended Started on systemic chemotherapy with FOLFOX/pembrolizumab minus Herceptin due to borderline low ejection fraction on November 16, 2020. He tolerate it well. Mr. Platt is here today for 1 week follow-up. He did see us on November 25, 2020 and he had tolerated his first cycle of FOLFOX well. He also received pembrolizumab at that time. His Herceptin was held because of borderline echocardiogram reported ejection fraction of 53% and was apparently a technically difficult study. MUGA scan has been recommended but has yet to be obtained. Came for follow-up, denies any specific complaints, no fever chills, no nausea or vomiting, no diarrhea constipation, no more dysphagia, tolerating orally well, no peripheral neuropathy, no shortness of breath, no jaundice, no abdominal pain, tolerating systemic therapy with Herceptin/pembrolizumab/FOLFOX well Medications: Esomeprazole Magnesium 1 Tablet (of 40 mg) Capsule Delayed Release Oral daily, Losartan Potassium 1 Tablet (of 100 mg) Oral daily, Meloxicam 1 Tablet (of 15 mg) Oral daily Allergies: No Known Allergies. Review of Systems: Review of Systems is not available for this patient. Vital Signs: Performed on Feb 08, 2021 09:26 Height - 69.00 in Weight - 200.0 lbs (HIGH) BSA - 2.07 sq.m BMI - 29.54 Temperature - 98.2 F (LOW) Pulse - 114 /min (HIGH) Respiration - 18 /min BP - 162/84 mm(hg) (HIGH) O2 Sat - 94 % (LOW) Pain - 0 Fatigue - 5 Performance Status: 0 - Fully active, able to carry on all predisease activities without restrictions. (ECOG) Physical Examination: [facility] - No mouth sores, no thrush, no jaundice, Respiratory - Lungs are clear to auscultation, Cardiovascular - Regular rate and rhythm of heart, Abdomen - Soft, bowel sounds present, Extremities - No visible edema. Lab/Imaging: Test performed on Dec 14, 2020 08:22 Sodium 139 mmol/L Potassium 4.1 mmol/L Chloride 103 mmol/L CO2 29 mmol/L Anion Gap 11.1 BUN 14 mg/dL Creatinine 0.6 mg/dL Cr Clearance (Est) 139.6600 mL/min Glucose 132 mg/dL Osmolality - Calculated 290 mOsm/kg Calcium 9.1 mg/dL Protein, Total 6.6 g/dL Albumin 3.7 g/dL Globulin 2.9 g/dL Bilirubin, Total 0.4 mg/dL ALT (SGPT) 11 U/L AST (SGOT) 15 U/L Alkaline Phosphatase 99 IU/L WBC 5.9 10 3/uL RBC 4.27 10 6/uL HGB 13.0 g/dL HCT 39.8 % MCV 93.2 fl MCH 30.4 pg MCHC 32.7 g/dL RDW 13.9 % Platelet Count 185 10 3/cmm MPV 10.7 fL Neutrophils 4.08 10 3/uL Lymphocytes 1.2 10 3/uL Monocytes 0.3 10 3/uL Eosinophils 0.1 10 3/uL Basophils 0.1 10 3/uL Neutrophil % 69.8 % Lymphocyte % 21.0 % Monocyte % 5.8 % Eosinophil % 1.7 % Basophils % 1.4 % NRBC % 0 % Impression: Metastatic Invasive adenocarcinoma, moderate differentiated involving distal esophagus per EGD done on September 25, 2020, HER-2/emanuel positive. CT PET scan done on October 22, 2020 showed distal esophageal thickening wall with marked increase in metabolic activity. Paraesophageal lymph nodes in the inferior mediastinum. A single liver lesion is observed consistent with metastatic disease in anterior left lobe. Pulmonary micronodules are indeterminant for early metastatic disease. Head and neck and left axillary lymph nodes all may be reactive. CT chest abdomen pelvis done on October 12, 2020 shows long segment thickening and masslike structure in the distal esophagus. Mass measures about 5 cm. Transverse diameter is of 3.6 cm. There are few adjacent small but indeterminate lymph nodes in the paraesophageal fat. No evidence of metastatic disease to the liver or adrenal glands. 3 mm noncalcified nodule posterior right upper lobe. Left renal mass measuring 11 mm is and solid in appearance. Early renal cell neoplasm not excluded, follow-up recommended Progressive dysphagia, due to above Hypertension Plan: Discussed with patient regarding his labs white blood count 8 hemoglobin 11.1 hematocrit 33.4 platelets 251,000 CMP within normal limits Clinically, patient doing well with no new signs symptoms suggestive of disease progression, tolerating systemic therapy with Herceptin/Keytruda/FOLFOX well, will proceed with next dose today then he will return to clinic in 2 weeks with CBC CMP and follow-up CT PET scan Signed By: Merlyn Michaels M.D. <<Signature on File>>
[2021-02-10] MEDS: pegfilgrastim-bmez 6 mg/0.6 mL SYR SUBCUT (14:20)
== END 2021-02-12 23:59 | disposition home or self-care (01) ==
LOC: ONCMED 06:46
PROVIDERS: PCP Family Medicine; Visit Provider Internal Medicine Hematology & Oncology
DX: Z51.12 Encounter for antineoplastic immunotherapy (principal); Z51.11 Encounter for antineoplastic chemotherapy; C15.5 Malignant neoplasm of lower third of esophagus; R13.10 Dysphagia, unspecified; I10 Essential (primary) hypertension; E87.6 Hypokalemia; Z79.899 Other long term (current) drug therapy
CPT/HCPCS: 80053; 83735; 85025; 96365; 96367; 96368; 96372; 96375; 96411; 96413; 96415; 96416; 96417; 96523; 99215; J0640; J1100; J1200; J2405; J3475; J7050; J9190; J9263; J9271; Q5112; Q5120

== ENCOUNTER 2021-03-12 06:20 | Outpatient (RCR) | payer MEDICARE, SELFPAY ==
[2021-02-23 13:18] LABS: Basophils # 0.1 10^3/uL (0.0-0.1); Eosinophils # 0.1 10^3/uL (0.0-0.8); Eosinophils % 1.3 %; Hematocrit 34.6 % (42.0-52.0); Hemoglobin 11.4 g/dL (11.7-16.6); Lymphocytes # 1.4 10^3/uL (0.8-4.8); Lymphocytes % 12.9 %; Mean Corpuscular HGB Conc 32.9 g/dL (30.0-36.0); Mean Corpuscular Hemoglobin 31.3 pg (28.0-34.0); Mean Corpuscular Volume 95.1 fl (80-94); Mean Platelet Volume 10.5 fL (7.4-10.4); Monocytes % 9.3 %; Neutrophils # 7.95 10^3/uL (1.8-7.7); Nucleated Red Blood Cells % 0 %; Platelet Count 143 10^3/cmm (130-400); Red Blood Count 3.64 10^6/uL (4.1-5.3); White Blood Count 10.9 10^3/uL (4.0-10.0)
[2021-02-23 13:31] LABS: Alanine Aminotransferase 17 U/L (0-41); Albumin Level 3.6 g/dL (3.5-5.2); Alkaline Phosphatase 189 IU/L (40-130); Aspartate Amino Transferase 19 U/L (0-40); Blood Urea Nitrogen 10 mg/dL (8-23); Calcium 9.3 mg/dL (8.5-10.5); Carbon Dioxide 25 mmol/L (22-29); Chloride 105 mmol/L (98-107); Globulin 2.6 g/dL (1.3-4.6); Glucose 130 mg/dL (65-115); Osmolality Calculated 295 mOsm/kg (285-295); Sodium 142 mmol/L (136-145); Total Bilirubin 0.2 mg/dL (0.15-1.2); Total Protein 6.2 g/dL (6.6-8.7)
[2021-02-23 13:34] LABS: Anion Gap 16.3 (5-19)
[2021-02-23 13:35] LABS: Potassium 4.3 mmol/L (3.5-5.1)
[2021-03-10 08:27] LABS: Basophils # 0.1 10^3/uL (0.0-0.1); Basophils % 1.3 %; Eosinophils # 0.1 10^3/uL (0.0-0.8); Eosinophils % 1.9 %; Hematocrit 35.3 % (42.0-52.0); Hemoglobin 11.4 g/dL (11.7-16.6); Lymphocytes # 0.9 10^3/uL (0.8-4.8); Lymphocytes % 23.3 %; Mean Corpuscular HGB Conc 32.3 g/dL (30.0-36.0); Mean Corpuscular Hemoglobin 31.7 pg (28.0-34.0); Mean Corpuscular Volume 98.1 fl (80-94); Mean Platelet Volume 9.6 fL (7.4-10.4); Monocytes # 0.5 10^3/uL (0.2-0.9); Monocytes % 12.4 %; Neutrophils % 60.8 %; Nucleated Red Blood Cells % 0 %; Platelet Count 168 10^3/cmm (130-400); Red Cell Distribution Width 17.1 % (12.1-15.1); White Blood Count 3.8 10^3/uL (4.0-10.0)
[2021-03-10 08:38] LABS: Alanine Aminotransferase 11 U/L (0-41); Albumin Level 3.9 g/dL (3.5-5.2); Alkaline Phosphatase 115 IU/L (40-130); Anion Gap 15.3 (5-19); Aspartate Amino Transferase 14 U/L (0-40); Blood Urea Nitrogen 15 mg/dL (8-23); Calcium 9.6 mg/dL (8.5-10.5); Carbon Dioxide 25 mmol/L (22-29); Chloride 102 mmol/L (98-107); Glucose 104 mg/dL (65-115); Osmolality Calculated 287 mOsm/kg (285-295); Potassium 4.3 mmol/L (3.5-5.1); Sodium 138 mmol/L (136-145); Total Bilirubin 0.4 mg/dL (0.15-1.2); Total Protein 6.9 g/dL (6.6-8.7)
[2021-03-10] MEDS: acetaminophen 325 mg Tablet 650 MG PO (11:20)
[2021-03-10] MEDS: ondansetron 2 mg/ML SDV 2 mL 8 MG IVP (11:20)
[2021-03-10] MEDS: sodium chloride 0.9% 250 ML 75 ML IV (11:20)
[2021-03-10] MEDS: dextrose 5% 250 ML 75 ML IV (11:22)
[2021-03-10] MEDS: diphenhydrAMINE 50 mg/mL SDV 1mL 25 MG IV (11:22)
[2021-03-10 14:21] LABS: Prostate Specific Antigen 0.616 ng/mL (0-4)
--- NOTE | 2021-03-10 17:16 | ONC FU_ITS ---
Dr. Michaels follow up note Patient: Jatinder Platt Unit #: [id number]: 1950 Dicatated By: Merlyn Michaels M.D.Date of Visit:Mar 10, 2021 Onc Med Follow-up/Prog Note History of Present Illness: Mr. Platt is a 70-year-old gentleman with a history of progressive dysphagia and weight loss. He underwent EGD on September 25, 2020 which showed in the lower third esophagus, a moderate, malignant appearing, intrinsic stenosis was noted. The stenosis was traversed, partially obstructing, medium sized, friable, fungating, circumferential. An actively bleeding ulcerated mass was seen. 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 CT chest abdomen pelvis on September 25, 2020 showed a long segment thickening and masslike structure in the distal esophagus. Measures at least 5 cm, transverse diameter about 3.6 cm. There are few adjacent small but indeterminant lymph nodes in the paraesophageal fat. No evidence of metastatic disease to the liver or adrenal gland. A 3 mm noncalcified nodule posterior right upper lobe. Left renal mass measuring 11 mm and is solid in appearance. Early renal cell neoplasm not excluded and follow-up was recommended. Staging PET/CT scan from October 22, 2020 reported a dilated distal esophagus with thickened wall with a maximum SUV of 13.13. Lower mediastinal paraesophageal lymph nodes are present., Size about 0.9 cm with SUV of 6.03. Posterior right upper lobe 0.4 cm nodular density with SUV of 1.13 and another 0.2 cm nodular density in the right posterior apex with SUV of 1.27. Calcified micronodules are present in the right lung. In the liver there was a 2.2 cm mass in anterior left lobe with SUV of 9.79. A 2 cm nodular density is present in the posterior wall of the urinary bladder with SUV of 6.13. no mass is identified in the left kidney and no osseous metastatic disease seen Patient has history of smoking but quit 31 years ago, but is a heavy smoker so he has secondhand smoking exposure. Denies alcohol use. Echocardiogram done prior to the treatment on November 03, 2020 showed borderline low ejection fraction of 53%. Mild diffuse hypokinesis of the left ventricle. Because of poor endocardial delineation, ejection pressure estimation could be misleading, further studies with contrast echo or MUGA scan was recommended Started on systemic chemotherapy with FOLFOX/pembrolizumab minus Herceptin due to borderline low ejection fraction on November 16, 2020. He tolerate it well. Mr. Platt is here today for 1 week follow-up. He did see us on November 25, 2020 and he had tolerated his first cycle of FOLFOX well. He also received pembrolizumab at that time. His Herceptin was held because of borderline echocardiogram reported ejection fraction of 53% and was apparently a technically difficult study. MUGA scan CT PET scan done on March 05, 2021 showed resolution of the previously demonstrated distal esophageal focus of increased activity as well as lower paraesophageal lymph nodes. Partial response of previously single liver lesion in anterior left lobe to treatment and no evidence of progression or new lesions and a new focus of metabolic activity is observed in the right Rosenmuller's fossa of concern for possible neoplastic versus infectious. A new groundglass nodular density is observed in the right lung with otherwise stable previous micro densities. Stable prostatomegaly with indeterminant findings in the urinary bladder questioning a possible tumor Came for follow-up, denies any specific complaints, no fever chills, no nausea or vomiting, no diarrhea constipation, no dysphagia, no peripheral neuropathy, no hematuria or dysuria, no abdominal pain, no jaundice, no chest pain or palpitation, tolerating FOLFOX/pembrolizumab/Herceptin well Medications: Esomeprazole Magnesium 1 Tablet (of 40 mg) Capsule Delayed Release Oral daily, Losartan Potassium 1 Tablet (of 100 mg) Oral daily, Meloxicam 1 Tablet (of 15 mg) Oral daily Allergies: No Known Allergies. Review of Systems: Review of Systems is not available for this patient. Vital Signs: Performed on Mar 10, 2021 10:10 Height - 69.00 in Weight - 202.4 lbs (HIGH) BSA - 2.08 sq.m BMI - 29.89 Temperature - 97.7 F (LOW) Pulse - 111 /min (HIGH) Respiration - 16 /min BP - 156/71 mm(hg) (HIGH) O2 Sat - 96 % Pain - 0 Fatigue - 2 Performance Status: 0 - Fully active, able to carry on all predisease activities without restrictions. (ECOG) Physical Examination: ENMT - No mouth sores, no thrush, no jaundice, Respiratory - Lungs are clear to auscultation, Cardiovascular - Regular rate and rhythm of heart, Abdomen - Soft, bowel sounds present, Extremities - No visible edema. Lab/Imaging: Test performed on Mar 10, 2021 08:04 Sodium 138 mmol/L Potassium 4.3 mmol/L Chloride 102 mmol/L CO2 25 mmol/L Anion Gap 15.3 BUN 15 mg/dL Creatinine 0.6 mg/dL Cr Clearance (Est) 139.6600 mL/min Glucose 104 mg/dL Osmolality - Calculated 287 mOsm/kg Calcium 9.6 mg/dL Protein, Total 6.9 g/dL Albumin 3.9 g/dL Globulin 3.0 g/dL Bilirubin, Total 0.4 mg/dL ALT (SGPT) 11 U/L AST (SGOT) 14 U/L Alkaline Phosphatase 115 IU/L WBC 3.8 10 3/uL RBC 3.60 10 6/uL HGB 11.4 g/dL HCT 35.3 % MCV 98.1 fl MCH 31.7 pg MCHC 32.3 g/dL RDW 17.1 % Platelet Count 168 10 3/cmm MPV 9.6 fL Neutrophils 2.30 10 3/uL Lymphocytes 0.9 10 3/uL Monocytes 0.5 10 3/uL Eosinophils 0.1 10 3/uL Basophils 0.1 10 3/uL Neutrophil % 60.8 % Lymphocyte % 23.3 % Monocyte % 12.4 % Eosinophil % 1.9 % Basophils % 1.3 % NRBC % 0 % Impression: Metastatic Invasive adenocarcinoma, moderate differentiated involving distal esophagus per EGD done on September 25, 2020, HER-2/emanuel positive. CT PET scan done on October 22, 2020 showed distal esophageal thickening wall with marked increase in metabolic activity. Paraesophageal lymph nodes in the inferior mediastinum. A single liver lesion is observed consistent with metastatic disease in anterior left lobe. Pulmonary micronodules are indeterminant for early metastatic disease. Head and neck and left axillary lymph nodes all may be reactive. CT chest abdomen pelvis done on October 12, 2020 shows long segment thickening and masslike structure in the distal esophagus. Mass measures about 5 cm. Transverse diameter is of 3.6 cm. There are few adjacent small but indeterminate lymph nodes in the paraesophageal fat. No evidence of metastatic disease to the liver or adrenal glands. 3 mm noncalcified nodule posterior right upper lobe. Started on Herceptin/pembrolizumab / FOLFOX on November 16, 2020, follow-up CT PET scan done on March 05, 2020 showed excellent response with resolution of distal esophageal focus of increased uptake as well as lower paraesophageal lymph node. Partial response of previously described single liver lesion and anterior left lobe. And a new focus of metabolic activity is observed in the right Rosenmuller fossa, concerned about neoplastic versus infectious process. A new groundglass nodular density is observed in the right lung with otherwise stable previous micro densities. Stable prostatomegaly with indeterminant findings in the urinary bladder questioning a possible tumor. Left renal mass measuring 11 mm is and solid in appearance. Early renal cell neoplasm not excluded, follow-up recommended Progressive dysphagia, due to above Hypertension Plan: Discussed with patient regarding his labs, white blood count 3.8 hemoglobin 11.4 g medical 35.3 platelets 168,000, CMP within normal limits Follow-up CT PET scan shows excellent response with resolution of distal esophageal focus of increased uptake as well as lower paraesophageal lymph node. Partial response of previously described single liver lesion and anterior left lobe. And a new focus of metabolic activity is observed in the right Rosenmuller fossa, concerned about neoplastic versus infectious process. A new groundglass nodular density is observed in the right lung with otherwise stable previous micro densities. Stable prostatomegaly with indeterminant findings in the urinary bladder questioning a possible tumor. Clinically, patient doing well with no new signs symptom suggestive of disease progression, tolerating Herceptin/pembrolizumab/FOLFOX well, his follow-up CT PET scan shows excellent response with resolution of distal esophageal focus as well as paraesophageal lymph node and partial response in the single liver mets and no evidence of metastatic disease anywhere else, at this point, will refer him to GI surgical oncology at [facility] for evaluation for possible esophagectomy and single liver lesion metastatectomy or for combined chemoradiation to esophageal primary and SRS to the liver. His CT PET scan shows increased uptake in the right Rosenmuller fossa, could be infectious or malignancy but less likely, will refer him to ENT for evaluation His CT PET scan also showed stable prostatomegaly with indeterminant finding in the urinary bladder, will refer him to urology for evaluation and check his PSA today, In the meantime, we will continue with his systemic therapy with Herceptin/FOLFOX/pembrolizumab and then patient return to clinic in 2 weeks with CBC CMP Signed By: Merlyn Michaels M.D. <<Signature on File>>
[2021-03-12] MEDS: pegfilgrastim-bmez 6 mg/0.6 mL SYR SUBCUT (11:35)
== END 2021-03-15 23:59 | disposition home or self-care (01) ==
LOC: ONCMED 06:20
PROVIDERS: PCP Family Medicine; Visit Provider Internal Medicine Hematology & Oncology
DX: Z51.12 Encounter for antineoplastic immunotherapy (principal); Z51.11 Encounter for antineoplastic chemotherapy; C15.5 Malignant neoplasm of lower third of esophagus; C77.8 Secondary and unspecified malignant neoplasm of lymph nodes of multiple regions; C78.7 Secondary malignant neoplasm of liver and intrahepatic bile duct; R13.10 Dysphagia, unspecified; I10 Essential (primary) hypertension; Z79.899 Other long term (current) drug therapy
CPT/HCPCS: 36591; 80053; 84153; 85025; 96367; 96368; 96372; 96375; 96411; 96413; 96415; 96416; 96417; 96523; 99215; J0640; J1100; J1200; J2405; J7050; J9190; J9263; Q5112; Q5120

== ENCOUNTER 2021-03-30 12:51 | Outpatient (CLI) | payer MEDICARE, SELFPAY ==
--- NOTE | 2021-03-30 13:01 | CT_ITS ---
WS: [id number] CT ABDOMEN AND PELVIS WITH CONTRAST HISTORY: MALIGNANT NEOPLASM OF LOWER THIRD OF ESOPHAGUS TECHNIQUE: Imaging performed of the abdomen and pelvis with IV contrast. Single phase imaging of the abdomen. Coronal and sagittal reformats are submitted. All CT scans at [facility] use at lan st one of these dose optimization techniques: automated exposure control; mA and/or kV adjustment per patient size (includes targeted exams where dose is matched to clinical indication); or iterative re construction. IV CONTRAST: Omnipaque 300; 95 mL IV. Oral contrast: Yes. DLP: 1213.66 mGy.cm COMPARISON: 09/25/2020 Lower thorax: Focal opacifications at the lung bases, greatest at the RIGHT lung base and in the RIGH T middle lobe. These opacifications are groundglass and partially opacified, especially on the RIGHT. Heart is normal size. No pericardial effusion. Oral contrast is present within the mid to distal eso phagus. There is continued mild wall thickening of the distal esophagus measuring up to 7.7 mm. Moder ate improvement since the prior examination. Liver/biliary system: Normal size with no intrahepatic dilatation. Along the anterior surface of the LEFT lobe the liver is a very vague 11 mm low-attenuation nodule. Seen on the PET/CT. This may be vern ated metastatic lesion. No enhancement today. Gallbladder: Contracted gallbladder. No adjacent inflammation. Pancreas: Normal size pancreas and pancreatic duct. No adjacent inflammation. Spleen: Normal size spleen. No mass or infarct. Adrenal glands: Normal. Right kidney: Normal size kidney. There are a few small nonobstructing calcifications in the renal pe lvis. No obstruction. Mild perinephric stranding. Left kidney: Mild perinephric stranding. There are a few small nonobstructing calcifications in the r enal pelvis. Low-attenuation solid-appearing mass measures 14 mm from the superior medial RIGHT kidne y. This may be a solid renal cell neoplasm. Very slight increase in size since the prior examination. Aorta: Mild atherosclerosis with no aneurysm. Lymphadenopathy: None. Free fluid: None. GI tract: Moderate distention of the stomach with oral contrast and food products. No small bowel obs truction. Prior appendectomy. No GI tract obstruction. Abdominal wall: Unremarkable abdominal wall. No hernia. Pelvis: No free fluid or adenopathy. Mildly enlarged prostate gland measures 4.9 x 4.8 x 3.9 cm. Cent ral calcifications within the gland. No adjacent adenopathy. Urinary bladder is moderately well diste nded. Bones: Moderate lumbar spondylitic change. Narrowing of the SI joints. CT/CT abdomen pelvis w con* [id number] IMPRESSION: 1. New bilateral lower lobe and RIGHT middle lobe areas of consolidation and p neumonitis, greater involving the RIGHT middle and RIGHT lower lobe. 2. Continued but improved thickening of the distal esophagus up to 7 mm in radha meter. 3. No metastatic disease within the abdomen or pelvis. 4. Slight increase in size of the LEFT renal mass which is not a simple cyst. Early renal cell neoplasm within the differential. Mass has increased in size f rom 11 to 14 mm.
[2021-03-30] MEDS: iohexol 300 mg/mL 100 mL Btl IV (14:39)
[2021-03-30] MEDS: iohexol 300 mg/mL 50 mL Btl PO (14:39)
== END 2021-03-30 12:52 | disposition home or self-care (01) ==
PROVIDERS: PCP Family Medicine; Visit Provider Internal Medicine Hematology & Oncology
DX: D70.1 Agranulocytosis secondary to cancer chemotherapy (principal); C15.5 Malignant neoplasm of lower third of esophagus; J18.9 Pneumonia, unspecified organism; N28.89 Other specified disorders of kidney and ureter
CPT/HCPCS: 74177

== ENCOUNTER 2021-04-12 16:21 | Inpatient (IN) | payer MEDICARE, SELFPAY ==
[2021-04-12] VITALS (8 sets, daily range): BP systolic 133–148; BP diastolic 74–88; PULSE 91–116; RESP 16–24; TEMP 36.4–36.6; O2SAT 81–100; BMI 27.3
--- NOTE | 2021-04-12 16:45 | XRR_ITS ---
PROCEDURE INFORMATION: Exam: XR Chest Exam date and time: 04/12/2021 4:45 PM Age: 70 years old Clinical indication: Condition or disease; Lung condition and disease; Pneumonia; Other: Not specified; Shortness of breath and other: Hypoxia; Prior surgery; Surgery type: Port TECHNIQUE: Imaging protocol: XR of the chest. Views: 1 view. COMPARISON: CT angio chest w abd pel w con 09/25/2020 12:01 PM FINDINGS: Tubes, catheters and devices: Interval placement of a left Mediport catheter. Lungs: Moderate right mid and lower lung field opacities most consistent with pneumonia. Pleural spaces: Unremarkable. No pleural effusion. No pneumothorax. Heart/Mediastinum: Unremarkable. No cardiomegaly. Bones/joints: Unremarkable. XR/XR chest 1V portable [id number] IMPRESSION: 1. Interval placement of a left Mediport catheter. 2. Moderate right mid and lower lung field opacities most consistent with pneumonia.
[2021-04-12 16:56] LABS: ABG PCO2 34.7 mmHg (35-45); ABG PH Result 7.48 (7.35-7.45); Arterial Blood Gas Hematocrit 34.9 % (42-52); Base Excess ABG 2.4 mmol/L (-2.0-2.0); Blood Gas Operator Identificat GD; Blood Gas Sample Site Brachial, right; Blood Gas Sample Type Arterial; HCO3 ABG 25.8 mmol/L (22-26); Oxygen Device NC; PO2 ABG 77.5 mmHg (80.0-100.0)
[2021-04-12] MEDS: dexamethasone 4 mg/mL INJ 6 MG IVP (17:03)
--- NOTE | 2021-04-12 17:10 | PC.PHAR ---
Addendum entered by Radha Osorio 04/12/21 17:17: pt states he finished his medrol dose jessika filled on 03/23/21 6d/s Original Note: pt states he takes care of his own medications-pt states he takes flomax 0.4mg hs prn rx filled for 0.4mg hs on 03/22/21 90d/s-pt states he is no longer taking metformin 850mg bid pt states he dced himself ext med history shows last filled 11/17/20 90d/s-pt states he no longer takes spironolactone 25mg take 12.5mg qam last filled 01/18/21 60d/s-pt states he was getting chemo and got steroids and some other kind of shot before chemo states he hasnt had it in a month-pt states the medications entered are the meds he takes-notes are made in the pharmacy comments
[2021-04-12 17:23] LABS: Basophils # 0.1 10^3/uL (0.0-0.1); Eosinophils # 0.6 10^3/uL (0.0-0.8); Hemoglobin 11.7 g/dL (11.7-16.6); Lymphocytes # 1.1 10^3/uL (0.8-4.8); Lymphocytes % 10.4 %; Mean Corpuscular HGB Conc 31.6 g/dL (30.0-36.0); Mean Corpuscular Hemoglobin 30.6 pg (28.0-34.0); Mean Corpuscular Volume 96.9 fl (80-94); Mean Platelet Volume 9.6 fL (7.4-10.4); Monocytes % 9.6 %; Neutrophils # 7.77 10^3/uL (1.8-7.7); Neutrophils % 72.6 %; Nucleated Red Blood Cells % 0 %; Platelet Count 321 10^3/cmm (130-400); Red Blood Count 3.82 10^6/uL (4.1-5.3); Red Cell Distribution Width 14.5 % (12.1-15.1); White Blood Count 10.7 10^3/uL (4.0-10.0)
--- NOTE | 2021-04-12 17:34 | W.ED.SOB ---
HPI - SOB/Dyspnea General: Chief Complaint: Shortness of Breath/Dyspnea Stated Complaint: PT stated he has Anomonia Time Seen by Provider: 04/12/21 16:41 Source: patient Mode of arrival: ambulatory Limitations: no limitations History of Present Illness: HPI Narrative: 70-year-old male presents emergency room with shortness of breath and cough. Is been being treated for pneumonia as an outpatient which she has failed. He has a history of esophageal cancer has been getting chemotherapy for the tell him he has about completed his course of treatment. He normally is not on any oxygen he arrives here he is in the 80% range and now is requiring 5 L by nasal cannula. He denies any abdominal pain he denies any chest pain. MD elicited complaint: shortness of breath and cough Pertinent past history: COPD Onset (ago): day(s) Context: recent illness Timing: constant Severity: severe Exacerbating factors: exertion and coughing Known history of: other (Esophageal CA currently receiving chemotherapy) Associated symptoms: Reports cough, fever(s), myalgias and nausea; Deny abdominal pain, chest congestion, chest pain, diaphoresis, dizziness, extremity pain, hemoptysis, lightheadedness, orthopnea, palpitations, paresthesias, polydipsia, polyuria, rash, sense of impending doom, syncope or vomiting Treatment prior to arrival: none Review of Systems Const: Reports: fever(s); Denies: diaphoresis Card: Denies: chest pain, palpitations, lightheadedness, syncope or orthopnea Resp: Denies: hemoptysis or chest congestion GI: Reports: nausea; Denies: abdominal pain or vomiting Musc: Denies: extremity pain Neuro: Denies: dizziness Endo: Denies: polyuria or polydipsia PFSH ED PFSH: Medical History Esophageal cancer History of thyroglossal duct cyst Surgical History History of appendectomy Port-A-Cath in place (10/21/20) Family History Denies family history of Anesthesia complication Bleeding disorder Physical Exam Const: GENERAL APPEARANCE: cooperative and comfortable ORIENTATION/CONSCIOUSNESS: Yes awake, Yes oriented to person, Yes oriented to place and Yes oriented to time HENMT: COMMON NORMALS: normocephalic, atraumatic and hearing grossly normal bilaterally HEAD & SCALP: normocephalic and atraumatic Neck/C-Spine: COMMON NORMALS: no JVD Resp: AUSCULTATION: rhonchi, wheezes and diminished lung sounds bilateral in the lower lung moses Cardio: COMMON NORMALS: no JVD, regular rate, regular rhythm and No murmurs present (Cardio) RATE: regular rate RHYTHM: regular rhythm GI: COMMON NORMALS: Soft to palpation and No hepatosplenomegaly present AUSCULTATION: Yes normoactive bowel sounds PALPATION: Yes Soft to palpation, No Tenderness to palpation present (GI), No Guarding due to palpation present (GI) and Yes No hepatosplenomegaly present Extremity: COMMON NORMALS: normal to inspection, capillary refill normal, no clubbing, cyanosis or edema, no calf tenderness and no pedal edema Neuro: SENSORIUM/ORIENTATION: Yes oriented to person, Yes oriented to place and Yes oriented to time Skin: COMMON NORMALS: no rashes or lesions noted GENERAL SKIN EXAM: no rashes or lesions noted Course Vital Signs: Vital signs: Vital Signs Temperature 97.5 F L 04/15/21 08:00 Pulse Rate 140 H 04/15/21 08:50 Respiratory Rate 18 04/15/21 08:50 Blood Pressure 118/60 04/15/21 08:00 Pulse Oximetry 92 04/15/21 08:50 MDM - SOB/Dyspnea Medical Decision Making Acute bilateral pneumonia with history of malignant neoplasm of the esophagus. Patient presents with acute hypoxic respiratory failure will admit antibiotic started discussed with hospitalist orders written Medical Records I reviewed the patient's medical records. Lab Data I reviewed the patient's lab results. : 04/15/21 02:54 04/15/21 02:54 Labs/Radiology: Radiology Impressions Chest CTA 04/12/21 17:53 IMPRESSION: 1. Negative for pulmonary embolus. 2. Scattered prominent mediastinal lymph nodes measuring up to 10 mm, nonspecific 3. Small to moderate right pleural effusion. 4. Cardiomegaly. 5. Coronary artery atherosclerotic calcifications. 6. Emphysematous changes. 7. Bilateral airspace infiltrates. Chest X-Ray 04/14/21 04:30 IMPRESSION: Low lung volumes and bilateral pneumonia with no significant interval change from comparison. Laboratory Results WBC 10.7 10^3/uL (4.0-10.0) H 04/12/21 16:50 RBC 3.82 10^6/uL (4.1-5.3) L 04/12/21 16:50 Hgb 11.7 g/dL (11.7-16.6) 04/12/21 16:50 Hct 37.0 % (42.0-52.0) L 04/12/21 16:50 MCV 96.9 fl (80-94) H 04/12/21 16:50 MCH 30.6 pg (28.0-34.0) 04/12/21 16:50 MCHC 31.6 g/dL (30.0-36.0) 04/12/21 16:50 RDW 14.5 % (12.1-15.1) 04/12/21 16:50 Plt Count 321 10^3/cmm (130-400) 04/12/21 16:50 MPV 9.6 fL (7.4-10.4) 04/12/21 16:50 Neut % (Auto) 72.6 % 04/12/21 16:50 Lymph % (Auto) 10.4 % 04/12/21 16:50 [place] % (Auto) 9.6 % 04/12/21 16:50 Eos % (Auto) 6.0 % 04/12/21 16:50 Baso % (Auto) 1.0 % 04/12/21 16:50 Neut # (Auto) 7.77 10^3/uL (1.8-7.7) H 04/12/21 16:50 Lymph # (Auto) 1.1 10^3/uL (0.8-4.8) 04/12/21 16:50 [place] # (Auto) 1.0 10^3/uL (0.2-0.9) H 04/12/21 16:50 Eos # (Auto) 0.6 10^3/uL (0.0-0.8) 04/12/21 16:50 Baso # (Auto) 0.1 10^3/uL (0.0-0.1) 04/12/21 16:50 Nucleated RBC % (auto) 0 % 04/12/21 16:50 Nucleated RBCs # 0.0 /100WBC 04/12/21 16:50 D-Dimer 8.42 ug/mIFEU (0-0.59) H 04/12/21 16:50 Specimen Type Arterial 04/12/21 16:40 Sample Site Brachial, right 04/12/21 16:40 ABG pH 7.48 (7.35-7.45) H 04/12/21 16:40 ABG pCO2 34.7 mmHg (35-45) L 04/12/21 16:40 ABG pO2 77.5 mmHg (80.0-100.0) L 04/12/21 16:40 ABG HCO3 25.8 mmol/L (22-26) 04/12/21 16:40 ABG Base Excess 2.4 mmol/L (-2.0-2.0) H 04/12/21 16:40 Jorge Test N/a 04/12/21 16:40 Hematocrit 34.9 % (42-52) L 04/12/21 16:40 O2 Delivery Device Nc 04/12/21 16:40 O2 Liters/Min 5.0 % 04/12/21 16:40 FiO2 40.0 % 04/12/21 16:40 [place] Craw[employer] Torch ID Gd 04/12/21 16:40 Sodium 138 mmol/L (136-145) 04/12/21 16:50 Potassium 4.3 mmol/L (3.5-5.1) 04/12/21 16:50 Chloride 98 mmol/L (98-107) 04/12/21 16:50 Carbon Dioxide 25 mmol/L (22-29) 04/12/21 16:50 Anion Gap 19.3 (5-19) H 04/12/21 16:50 BUN 14 mg/dL (8-23) 04/12/21 16:50 Creatinine 0.8 mg/dL (0.7-1.2) 04/12/21 16:50 GFR Calculation Not Reportable 04/12/21 16:50 Glucose 107 mg/dL (65-115) 04/12/21 16:50 Calculated Osmolality 287 mOsm/kg (285-295) 04/12/21 16:50 Lactic Acid 1.1 mmol/L (0.5-2.2) 04/12/21 16:50 Calcium 9.0 mg/dL (8.5-10.5) 04/12/21 16:50 Total Bilirubin 0.2 mg/dL (0.15-1.2) 04/12/21 16:50 AST 23 U/L (0-40) 04/12/21 16:50 ALT 21 U/L (0-41) 04/12/21 16:50 Alkaline Phosphatase 131 IU/L (40-130) H 04/12/21 16:50 C-Reactive Protein 116.2 mg/L (0.0-4.9) H 04/12/21 16:50 Total Protein 7.3 g/dL (6.6-8.7) 04/12/21 16:50 Albumin 3.4 g/dL (3.5-5.2) L 04/12/21 16:50 Globulin 3.9 g/dL (1.3-4.6) 04/12/21 16:50 Procalcitonin 0.11 ng/mL (0-0.5) 04/12/21 16:50 Coronavirus 229E (PCR) Not detected (NOT DETECT) 04/12/21 17:00 SARS-CoV-2 (PCR) Not detected (NOT DETECT) 04/12/21 17:00 Critical Care Time Critical Care Time: Critical Care Time: Yes Total Critical Care Time: 40 Attestation: The high probability of a clinically significant, sudden or life threatening deterioration of the patient's respiratory system(s) required my full and direct attention, intervention and personal management. The critical care time is as shown. This time is in addition to time spent performing any reported procedures but includes the following: [x] Data and vital sign review and interpretation [x] Patient assessment, examination and intervention [x] Documentation [x] Medication orders and management Discharge Plan Discharge Patient Disposition: Admitted As Inpatient Admit Provider: Eze Dimas Clinical Impression: Acute respiratory failure with hypoxia, Esophageal cancer, HTN (hypertension), Pneumonia Condition: Stable Coding Level of Care Code ED Supervisor Inspection And Testing for Rosendo Salgado
[2021-04-12 17:41] LABS: Alanine Aminotransferase 21 U/L (0-41); Albumin Level 3.4 g/dL (3.5-5.2); Alkaline Phosphatase 131 IU/L (40-130); Anion Gap 19.3 (5-19); Aspartate Amino Transferase 23 U/L (0-40); Blood Urea Nitrogen 14 mg/dL (8-23); C Reactive Protein 116.2 mg/L (0.0-4.9); Carbon Dioxide 25 mmol/L (22-29); Chloride 98 mmol/L (98-107); Globulin 3.9 g/dL (1.3-4.6); Glucose 107 mg/dL (65-115); Lactic Sepsis W/Reflex 1.1 mmol/L (0.5-2.2); Osmolality Calculated 287 mOsm/kg (285-295); Potassium 4.3 mmol/L (3.5-5.1); Sodium 138 mmol/L (136-145); Total Bilirubin 0.2 mg/dL (0.15-1.2); Total Protein 7.3 g/dL (6.6-8.7)
[2021-04-12 17:42] LABS: D Dimer 8.42 ug/mIFEU (0-0.59)
[2021-04-12 17:44] LABS: Procalcitonin 0.11 ng/mL (0-0.5)
--- NOTE | 2021-04-12 17:53 | CTR_ITS ---
PROCEDURE INFORMATION: Exam: CTA Chest With Contrast Exam date and time: 04/12/2021 5:53 PM Age: 70 years old Clinical indication: Shortness of breath; Prior surgery; Surgery type: Port; Additional info: Esophogeal CA, hypoxia TECHNIQUE: Imaging protocol: Computed tomographic angiography of the chest with contrast. 3D rendering (Not supervised by radiologist): MIP and/or 3D reconstructed images were created by the technologist. Radiation optimization: All CT scans at this facility use at least one of these dose optimization techniques: automated exposure control; mA and/or kV adjustment per patient size (includes targeted exams where dose is matched to clinical indication); or iterative reconstruction. Contrast material: OMNI 350; Contrast volume: 64 ml; Contrast route: INTRAVENOUS (IV); COMPARISON: CT angio chest w abd pel w con 09/25/2020 12:01 PM RADIATION DOSE METRICS: Total DLP (mGy-cm): 551.95 FINDINGS: Pulmonary arteries: Normal. No pulmonary emboli. Aorta: Unremarkable. No aortic aneurysm. No aortic dissection. Lungs: Emphysematous changes. Bilateral airspace infiltrates. Pleural spaces: Small to moderate right pleural effusion. Heart: Cardiomegaly. Coronary artery atherosclerotic calcifications. Lymph nodes: Scattered prominent mediastinal lymph nodes measuring up to 10 mm, nonspecific Bones/joints: Unremarkable. No acute fracture. Soft tissues: Unremarkable. CT/CT angio chest PE protcl [id number] IMPRESSION: 1. Negative for pulmonary embolus. 2. Scattered prominent mediastinal lymph nodes measuring up to 10 mm, nonspecific 3. Small to moderate right pleural effusion. 4. Cardiomegaly. 5. Coronary artery atherosclerotic calcifications. 6. Emphysematous changes. 7. Bilateral airspace infiltrates.
--- NOTE | 2021-04-12 17:56 | PM.HP ---
Providers/Chief Complaint Primary Care Provider: Apolinar Li Chief Complaint: PT stated he has Anomonia History of Present Illness Jatinder Platt is a 70 year old male with past medical history of esophageal cancer on chemotherapy with FOLFOX/pembrolizumab, Last chemo cycle done a month back, hypertension, came in with chief complaint of worsening shortness of breath going on for the last 2 weeks, had 1 episode of fever 2 weeks back, since then he has remained afebrile, patient was being managed for pneumonia as an outpatient by his primary care physician, initially was kept on azithromycin followed by levofloxacin, due to worsening symptoms And new oxygen requirement, patient was sent to ER. Currently is denying any chest pain, palpitation, cough, generalized body pain, nausea , vomiting. Patient has received 2 doses of Moderna vaccine.He has not received booster. Upon arrival in the ER he was worked up for above-mentioned complaint. Imaging studies: CTA chest: Negative for pulmonary evaluation, bilateral airspace disease. X-ray chest: Pertinent labs; WBC: 10.7 H&H 11.7/37, PLT : 321 , Serum sodium 138 serum potassium 4.3 BUN and serum creatinine:14/0.8 , D-dimer:8.42 , CRP: 116 , procalcitonin normal ABG: pH 7.48 PCO2 34 PO2 77, FiO2 on 40% Review of Systems Const: Denies: fever(s), chills, body aches, change in appetite or diaphoresis Card: Denies: palpitations, edema, swelling of feet/ankles or leg pain with exertion Resp: Denies: wheezing or pain on inspiration GI: Denies: abdominal pain, nausea, vomiting, diarrhea or constipation : Denies: flank pain or difficulty urinating Musc: Denies: back pain, extremity pain or extremity swelling Neuro: Denies: headache(s), difficulty walking or confusion Medications/Allergies Home Medications Medication Instructions Recorded Confirmed Last Taken Type esomeprazole magnesium 40 mg 40 mg PO QAM 09/24/20 04/12/21 04/12/21 08:00 History capsule,delayed release L.acidophil,salivari-Bifido 1 cap PO QAM 04/12/21 04/12/21 04/12/21 History bifidum-Strep thermoph 175 mg capsule (Acidophilus Probiotic Blend) albuterol sulfate 2.5 mg INHALATION TID PRN 04/12/21 04/12/21 04/12/21 History dextromethorphan-guaifenesin 10 10 ml PO Q4H PRN 04/12/21 04/12/21 Unknown History mg-100 mg/5 mL oral syrup levofloxacin 500 mg tablet 500 mg PO DAILY 04/12/21 04/12/21 04/12/21 History losartan 100 mg tablet 100 mg PO QAM 04/12/21 04/12/21 04/12/21 08:00 History meloxicam 15 mg tablet 15 mg PO QAM 04/12/21 04/12/21 04/12/21 08:00 History pseudoephedrine-guaifenesin ER 120 1 tab PO Q12H 04/12/21 04/12/21 04/12/21 History mg-1,200 mg tab,extend release 12hr (Mucinex D Maximum Strength) tamsulosin 0.4 mg capsule 0.4 mg PO BEDTIME PRN 04/12/21 04/12/21 04/07/21 History Allergies Allergy/AdvReac Type Severity Reaction Status Date / Time No Known Allergies Allergy Verified 04/12/21 17:10 PFSH Acute PFSH: Medical History Esophageal cancer History of thyroglossal duct cyst Surgical History History of appendectomy Port-A-Cath in place (10/21/20) Family History Denies family history of Anesthesia complication Bleeding disorder Vitals/I&O/Wt Last Vital Signs Temp 97.8 F 04/12/21 16:31 Pulse 104 H 04/12/21 16:58 Resp 16 04/12/21 16:58 BP 143/88 04/12/21 16:58 Pulse Ox 97 04/12/21 16:58 Weight last 48 hrs Weight 83.915 kg Physical Exam Const: COMMON NORMALS: patient oriented x3 HENMT: COMMON NORMALS: normocephalic, atraumatic, hearing grossly normal bilaterally and external ears normal HEAD & SCALP: normocephalic and atraumatic EXTERNAL EAR: Yes external ears normal Eye: COMMON NORMALS: no scleral icterus GENERAL EYE: appearance normal, both eyes and all related structures Chest: COMMONS NORMALS: normal inspection of the chest and normal palpation of entire chest wall CHEST: Yes Symmetrical chest wall rise Resp: COMMON NORMALS: normal respiratory effort, No retractions, No use of accessory muscles and clear to auscultation bilaterally EFFORT & INSPECTION: Yes symmetric chest movement AUSCULTATION: clear to auscultation bilaterally Cardio: COMMON NORMALS: regular rate, regular rhythm, S1 normal heart sound present, S2 normal heart sound present, No gallops present (Cardio), No murmurs present (Cardio), No rub (Cardio) and Peripheral pulses 2+ throughout RATE: regular rate RHYTHM: regular rhythm HEART SOUNDS: S1 normal heart sound present and S2 normal heart sound present PERIPHERAL PULSES: Peripheral pulses 2+ throughout GI: COMMON NORMALS: Normal to inspection, nondistended, normoactive bowel sounds present, Soft to palpation, non-tender, No hepatosplenomegaly present and no masses AUSCULTATION: Yes normoactive bowel sounds PALPATION: Yes Soft to palpation and Yes No hepatosplenomegaly present RECTAL EXAM: Yes deferred Extremity: COMMON NORMALS: no clubbing, cyanosis or edema and no pedal edema Neuro: COMMON NORMALS: patient oriented x3 Data : 04/13/21 04:15 04/13/21 04:15 Micro: Microbiology 04/12/21 16:50 Blood Culture - Preliminary Blood SPECIMEN COLLECTED 04/12/21 16:50 Blood Culture - Preliminary Blood SPECIMEN COLLECTED A&P Assessment and plan (1) Esophageal cancer: Status: Acute (2) HTN (hypertension): Status: Acute (3) Pneumonia: Status: Acute Plan 70 year old male with past medical history of esophageal cancer on chemotherapy with FOLFOX/pembrolizumab, Last chemo cycle done a month back, hypertension, came in with chief complaint of worsening shortness of breath going on for the last 2 weeks. Assessment #Pneumonia: Follow blood culture Sputum culture Urine Legionella antigen Bacterial antigen panel COVID-19 PCR Monitor ABG Monitor x-ray chest MRSA PCR Continue Vanco and Zosyn for now #Hypertension: Continue losartan #History of esophageal cancer: Currently on chemotherapy, missed last chemotherapy session was on eighth of this month. #DVT prophylaxis: #CODE STATUS: Full code Attestations Medical Necessity Statement*: Patient is to be in hospital for management of pneumonia. Anticipated length of stay greater than 2 midnights. Time Spent in Patient Care: Greater than 35 minutes (>than 50% of time spent in counselling and/or direct pt care on unit). Coding Level of Care Code Acute [employer] Host for Chg Fwd Exam Comprehensive Diagnoses Esophageal cancer C15.9 HTN (hypertension) I10 Pneumonia J18.9
[2021-04-12] MEDS: enoxaparin 40 mg/0.4 mL Syringe SUBCUT (18:43)
[2021-04-12] MEDS: piperacillin-tazobactam 3.375 GM in sodium chloride 0.9% (plus) 50 ML IV (18:43)
[2021-04-12] MEDS: ipratropium-albuterol 3 mL Neb INHALATION (21:10)
[2021-04-12 21:20] LABS: Adenovirus Not Detected (NOT DETECT); Chlamydia Pneumoniae Not Detected (NOT DETECT); Coronavirus 229E,HKU1,NL63,OC4 Not Detected (NOT DETECT); Human Metapneumovirus Not Detected (NOT DETECT); Human Rhinovirus/Enterovirus Not Detected (NOT DETECT); Influenza A Not Detected (NOT DETECT); Influenza A H1 Not Detected (NOT DETECT); Influenza A H1-2009 Not Detected (NOT DETECT); Influenza A H3 Not Detected (NOT DETECT); Influenza B Not Detected (NOT DETECT); Mycoplasma Pneumoniae Not Detected (NOT DETECT); Parainfluenza Virus Type 1 Not Detected (NOT DETECT); Parainfluenza Virus Type 2 Not Detected (NOT DETECT); Parainfluenza Virus Type 3 Not Detected (NOT DETECT); Parainfluenza Virus Type 4 Not Detected (NOT DETECT); Respiratory Syncytial Virus A Not Detected (NOT DETECT); Respiratory Syncytial Virus B Not Detected (NOT DETECT); SARS-COV-2 Not Detected (NOT DETECT)
[2021-04-12] MEDS: vancomycin 1,250 MG/250 ML PIGGYBACK 200 MG IV (21:38)
[2021-04-12] MEDS: tamsulosin 0.4 mg Capsule PO (21:38)
--- NOTE | 2021-04-12 22:01 | PC.NURSE ---
Pt has left sided port that has not been accessed.
[2021-04-12] MEDS: levofloxacin-dextrose 5 % 750 MG/150 ML PREMIX 100 MG IV (22:41)
[2021-04-13] VITALS (13 sets, daily range): BP systolic 102–132; BP diastolic 63–78; PULSE 85–132; RESP 17–22; TEMP 36.3–36.8; O2SAT 89–95
[2021-04-13] MEDS: piperacillin-tazobactam 3.375 GM in sodium chloride 0.9% (plus) 50 ML IV ×3 (02:29→17:19)
[2021-04-13] MEDS: ipratropium-albuterol 3 mL Neb INHALATION ×4 (02:57→20:50)
[2021-04-13 04:40] LABS: Basophils % 0.4 %; Eosinophils % 0.4 %; Hematocrit 37.4 % (42.0-52.0); Hemoglobin 11.9 g/dL (11.7-16.6); Lymphocytes # 0.7 10^3/uL (0.8-4.8); Lymphocytes % 12.2 %; Mean Corpuscular HGB Conc 31.8 g/dL (30.0-36.0); Mean Corpuscular Hemoglobin 30.7 pg (28.0-34.0); Mean Corpuscular Volume 96.6 fl (80-94); Mean Platelet Volume 9.7 fL (7.4-10.4); Monocytes # 0.4 10^3/uL (0.2-0.9); Monocytes % 6.4 %; Neutrophils # 4.55 10^3/uL (1.8-7.7); Neutrophils % 80.4 %; Nucleated Red Blood Cells % 0 %; Platelet Count 247 10^3/cmm (130-400); Red Blood Count 3.87 10^6/uL (4.1-5.3); Red Cell Distribution Width 14.4 % (12.1-15.1); White Blood Count 5.7 10^3/uL (4.0-10.0)
[2021-04-13 05:05] LABS: Alanine Aminotransferase 21 U/L (0-41); Albumin Level 3.4 g/dL (3.5-5.2); Alkaline Phosphatase 135 IU/L (40-130); Aspartate Amino Transferase 21 U/L (0-40); Blood Urea Nitrogen 13 mg/dL (8-23); Calcium 9.7 mg/dL (8.5-10.5); Carbon Dioxide 22 mmol/L (22-29); Chloride 99 mmol/L (98-107); Globulin 5.2 g/dL (1.3-4.6); Glucose 133 mg/dL (65-115); Magnesium 1.8 mg/dL (1.7-2.3); Osmolality Calculated 284 mOsm/kg (285-295); Sodium 136 mmol/L (136-145); Total Bilirubin 0.3 mg/dL (0.15-1.2); Total Protein 8.6 g/dL (6.6-8.7)
[2021-04-13 05:06] LABS: Anion Gap 19.2 (5-19); Potassium 4.2 mmol/L (3.5-5.1)
[2021-04-13 05:09] LABS: Procalcitonin 0.11 ng/mL (0-0.5)
[2021-04-13] MEDS: pantoprazole DR 40 mg Tablet PO (07:32)
[2021-04-13] MEDS: vancomycin 1,250 MG/250 ML PIGGYBACK 250 MG IV ×2 (07:32→21:51)
[2021-04-13] MEDS: losartan 50 mg Tablet 100 MG PO (07:32)
--- NOTE | 2021-04-13 14:42 | P.PN_ITS ---
Subjective Subjective: Patient was seen and examined this morning, shortness of breath is slightly improved, Has remained afebrile overnight, currently requiring 2 to 3 L supplemental oxygen. His other overnight vitals and labs have been reviewed. Medications: Medication Review Details: Generic Name Dose Route Start Last Admin Trade Name [place] PRN Reason Stop Dose Admin Albuterol/Ipratrop ium 3 ml 04/12/21 21:00 04/13/21 14:44 Ipratropium-Albu terol 3 Ml Neb INHALATION 3 ml Q6H.RESPIRATORY S CH Administration Enoxaparin Sodium 40 mg 04/12/21 18:30 04/12/21 18:43 Enoxaparin 40 Mg /0.4 Ml Syringe SUBCUT 40 mg Q24H DELORIS Administration Piperacillin Sod/T azobactam 50 mls @ 12.5 mls /hr 04/12/21 18:00 04/13/21 13:00 Sod 3.375 gm/ So dium Chloride IV Infused Q8H DELORIS Infusion Protocol Vancomycin/PEG/NAD A/Lysine/Water 1,250 mg in 250 m ls @ 200 mls/hr 04/12/21 20:00 04/13/21 08:51 Vancocin IV Infused Q12H DELORIS Infusion Losartan Potassium 100 mg 04/13/21 06:00 04/13/21 07:32 Losartan 50 Mg T ablet PO 100 mg QAM DELORIS Administration Pantoprazole Sodiu m 40 mg 04/13/21 09:00 04/13/21 07:[address] 40 Mg Tablet PO 40 mg DAILY DELORIS Administration Tamsulosin HCl 0.4 mg 04/12/21 21:00 04/12/21 21:38 Tamsulosin 0.4 M g Capsule PO 0.4 mg BEDTIME DELORIS Administration Vitals/I&O/Wt Last Vital Signs Temp 98.2 F 04/13/21 11:33 Pulse 92 04/13/21 11:33 Resp 17 04/13/21 11:33 BP 102/63 04/13/21 11:33 Pulse Ox 95 04/13/21 11:33 04/12/21 04/13/21 04/13/21 22:59 06:59 14:59 Intake Total 50 / 50 1060 / 1110 950 / 950 Output Total 400 / 400 750 / 750 Balance 50 / 50 660 / 710 200 / 200 Weight last 48 hrs Weight 62.959 kg Weight 84.912 kg Weight 83.915 kg Physical Exam Const: COMMON NORMALS: patient oriented x3 HENMT: COMMON NORMALS: normocephalic and atraumatic HEAD & SCALP: normocephalic and atraumatic Chest: CHEST: Yes Symmetrical chest wall rise Resp: COMMON NORMALS: normal respiratory effort, No retractions, No use of accessory muscles and clear to auscultation bilaterally EFFORT & INSPECTION: Yes symmetric chest movement AUSCULTATION: clear to auscultation bilaterally Cardio: COMMON NORMALS: regular rate, regular rhythm, S1 normal heart sound present, S2 normal heart sound present, No gallops present (Cardio), No murmurs present (Cardio), No rub (Cardio) and Peripheral pulses 2+ throughout RATE: regular rate RHYTHM: regular rhythm HEART SOUNDS: S1 normal heart sound present and S2 normal heart sound present PERIPHERAL PULSES: Peripheral pulses 2+ throughout GI: COMMON NORMALS: Normal to inspection, nondistended, normoactive bowel sounds present, Soft to palpation, non-tender, No hepatosplenomegaly present and no masses AUSCULTATION: Yes normoactive bowel sounds PALPATION: Yes Soft to palpation and Yes No hepatosplenomegaly present RECTAL EXAM: Yes deferred Extremity: COMMON NORMALS: no clubbing, cyanosis or edema and no pedal edema Neuro: COMMON NORMALS: patient oriented x3 Data : 04/13/21 04:15 04/13/21 04:15 Micro: Microbiology 04/13/21 04:10 MRSA Culture - Final Nose 04/12/21 18:46 Gram Stain - Final Sputum - Expectorated Sputum Sputum Culture - Preliminary 04/13/21 04:20 Blood Culture - Preliminary Blood SPECIMEN COLLECTED 04/13/21 04:15 Blood Culture - Preliminary Blood SPECIMEN COLLECTED 04/12/21 16:50 Blood Culture - Preliminary Blood SPECIMEN COLLECTED 04/12/21 16:50 Blood Culture - Preliminary Blood SPECIMEN COLLECTED A&P Assessment and plan (1) Esophageal cancer: Status: Acute (2) HTN (hypertension): Status: Acute (3) Pneumonia: Status: Acute Plan 70 year old male with past medical history of esophageal cancer on chemotherapy with FOLFOX/pembrolizumab, Last chemo cycle done a month back, hypertension, came in with chief complaint of worsening shortness of breath going on for the last 2 weeks. Assessment #Pneumonia: Follow blood culture Sputum culture Urine Legionella antigen Bacterial antigen panel COVID-19 PCR:Negative Monitor ABG Monitor x-ray chest MRSA PCR:Negative Continue Vanco and Zosyn for now #Hypertension: Continue losartan #History of esophageal cancer: Currently on chemotherapy, missed last chemotherapy session was on eighth of this month. Patient will continue to follow oncology as an outpatient #DVT prophylaxis: On Lovenox #CODE STATUS: Full code Attestations Medical Necessity Statement*: Patient is to be in hospital for management of pneumonia. Time Spent in Patient Care: Greater than 35 minutes (>than 50% of time spent in counselling and/or direct pt care on unit) . Coding Level of Care Code Acute Garage Door Technician for g Fwd Diagnoses Esophageal cancer C15.9 HTN (hypertension) I10 Pneumonia J18.9
[2021-04-13] MEDS: enoxaparin 40 mg/0.4 mL Syringe SUBCUT (17:19)
[2021-04-13] MEDS: tamsulosin 0.4 mg Capsule PO (21:05)
[2021-04-14] VITALS (17 sets, daily range): BP systolic 108–133; BP diastolic 65–86; PULSE 0–132; RESP 18–23; TEMP 36.4–37.5; O2SAT 90–96
[2021-04-14] MEDS: piperacillin-tazobactam 3.375 GM in sodium chloride 0.9% (plus) 50 ML IV ×3 (02:02→17:03)
--- NOTE | 2021-04-14 04:30 | XRR_ITS ---
PROCEDURE INFORMATION: Exam: XR Chest Exam date and time: 04/14/2021 4:30 AM Age: 70 years old Clinical indication: Shortness of breath; Prior surgery; Surgery type: Chest port; Patient HX: Worsening SOB. History of esophageal cancer. Currently admitted for pneumonia. ; Additional info: Increased oxygen demands TECHNIQUE: Imaging protocol: XR of the chest. Views: 1 view. COMPARISON: CR XR chest 1V portable [id number] 04/12/2021 5:06 PM FINDINGS: Tubes, catheters and devices: EKG monitoring leads overlie the thoracic wall. Redemonstration of a left chest port catheter with its tip in the superior vena cava, cavoatrial junction. Lungs: There is redemonstration of bilateral low lung volumes and airspace consolidation, worse on the right. Taking technical factors into consideration, the pulmonary process remains stable. Pleural spaces: No pleural effusion or pneumothorax. Heart/Mediastinum: Normal in size. Bones/joints: No acute fracture is identified. XR/XR chest 1V portable [id number] IMPRESSION: Low lung volumes and bilateral pneumonia with no significant interval change from comparison.
[2021-04-14 04:54] LABS: ABG PCO2 33.1 mmHg (35-45); Alveolar-Arterial Oxygen Gradi 6.2 mmHg (5-10); Arterial Blood Gas Hematocrit 35.2 % (42-52); Base Excess ABG 2.6 mmol/L (-2.0-2.0); Blood Gas Allen Test Pos; Blood Gas Sample Site Radial, left; Blood Gas Sample Type Arterial; HCO3 ABG 25.6 mmol/L (22-26); HGB O2 Sat 90.6 % (95-100); Ionized Calcium Level - ABG 1.2 mmol/L (1.1-1.4); Methemoglobin 0.5 % (0.4-1.5); Oxygen Device CAG; Oxygen Saturation ABG 91.9; PO2 ABG 61.1 mmHg (80.0-100.0); Potassium Level - ABG 4.2 mmol/L (3.5-5.0); Total Hemoglobin 11.5 g/dL (14-18)
[2021-04-14 05:25] LABS: Basophils # 0.1 10^3/uL (0.0-0.1); Basophils % 0.6 %; Eosinophils # 0.4 10^3/uL (0.0-0.8); Eosinophils % 2.9 %; Hematocrit 35.8 % (42.0-52.0); Hemoglobin 11.5 g/dL (11.7-16.6); Lymphocytes # 1.3 10^3/uL (0.8-4.8); Lymphocytes % 9.3 %; Mean Corpuscular HGB Conc 32.1 g/dL (30.0-36.0); Mean Corpuscular Hemoglobin 30.3 pg (28.0-34.0); Mean Corpuscular Volume 94.2 fl (80-94); Mean Platelet Volume 9.4 fL (7.4-10.4); Monocytes # 1.2 10^3/uL (0.2-0.9); Monocytes % 8.4 %; Neutrophils # 10.87 10^3/uL (1.8-7.7); Neutrophils % 78.5 %; Nucleated Red Blood Cells % 0 %; Platelet Count 296 10^3/cmm (130-400); Red Cell Distribution Width 14.5 % (12.1-15.1); White Blood Count 13.9 10^3/uL (4.0-10.0)
[2021-04-14] MEDS: losartan 50 mg Tablet 100 MG PO (05:45)
[2021-04-14 06:06] LABS: Anion Gap 15.5 (5-19); Blood Urea Nitrogen 17 mg/dL (8-23); Calcium 8.2 mg/dL (8.5-10.5); Carbon Dioxide 26 mmol/L (22-29); Chloride 100 mmol/L (98-107); Creatinine Clr Calc Pharmacy 89.7912; Glucose 119 mg/dL (65-115); Osmolality Calculated 287 mOsm/kg (285-295); Potassium 4.5 mmol/L (3.5-5.1); Sodium 137 mmol/L (136-145)
[2021-04-14] MEDS: pantoprazole DR 40 mg Tablet PO (08:06)
[2021-04-14] MEDS: vancomycin 1,250 MG/250 ML PIGGYBACK 250 MG IV ×2 (08:06→21:10)
[2021-04-14] MEDS: ipratropium-albuterol 3 mL Neb INHALATION ×3 (08:31→20:37)
--- NOTE | 2021-04-14 10:45 | PM.PN ---
Subjective Subjective: Patient was seen and examined this morning, he had a rough last night, supplemental oxygen requirement increased last night As he had an episode of acute shortness of breath, while he was returning from bathroom. He had to be placed on 10 Ls oxygen through [facility]. Chest x-ray was done at the time: Failed to show any significant change ABG: pH ,7.50 , PCO2 33 PO2 of 61, FiO2 on 15 L EKG done today showed sinus tachycardia Medications: Medication Review Details: Generic Name Dose Route Start Last Admin Trade Name [place] PRN Reason Stop Dose Admin Albuterol/Ipratrop ium 3 ml 04/12/21 21:00 04/13/21 14:44 Ipratropium-Albu terol 3 Ml Neb INHALATION 3 ml Q6H.RESPIRATORY S CH Administration Enoxaparin Sodium 40 mg 04/12/21 18:30 04/12/21 18:43 Enoxaparin 40 Mg /0.4 Ml Syringe SUBCUT 40 mg Q24H DELORIS Administration Piperacillin Sod/T azobactam 50 mls @ 12.5 mls /hr 04/12/21 18:00 04/13/21 13:00 Sod 3.375 gm/ So dium Chloride IV Infused Q8H DELORIS Infusion Protocol Vancomycin/PEG/NAD A/Lysine/Water 1,250 mg in 250 m ls @ 200 mls/hr 04/12/21 20:00 04/13/21 08:51 Vancocin IV Infused Q12H DELORIS Infusion Losartan Potassium 100 mg 04/13/21 06:00 04/13/21 07:32 Losartan 50 Mg T ablet PO 100 mg QAM DELORIS Administration Pantoprazole Sodiu m 40 mg 04/13/21 09:00 04/13/21 07:[address] 40 Mg Tablet PO 40 mg DAILY DELORIS Administration Tamsulosin HCl 0.4 mg 04/12/21 21:00 04/12/21 21:38 Tamsulosin 0.4 M g Capsule PO 0.4 mg BEDTIME DELORIS Administration Vitals/I&O/Wt Last Vital Signs Temp 97.5 F L 04/14/21 07:29 Pulse 113 H 04/14/21 08:31 Resp 20 H 04/14/21 08:31 BP 109/68 04/14/21 07:29 Pulse Ox 95 04/14/21 08:31 04/13/21 04/14/21 04/14/21 22:59 06:59 14:59 Intake Total 1260 / 2210 1250 / 3460 250 / 250 Output Total 250 / 1000 300 / 1300 Balance 1010 / 1210 950 / 2160 250 / 250 Weight last 48 hrs Weight 84.096 kg Weight 62.959 kg Weight 84.912 kg Weight 83.915 kg Physical Exam Const: COMMON NORMALS: patient oriented x3 HENMT: COMMON NORMALS: normocephalic and atraumatic HEAD & SCALP: normocephalic and atraumatic Eye: COMMON NORMALS: no scleral icterus GENERAL EYE: appearance normal, both eyes and all related structures Chest: COMMONS NORMALS: normal inspection of the chest and normal palpation of entire chest wall CHEST: Yes Symmetrical chest wall rise Resp: COMMON NORMALS: normal respiratory effort, No retractions, No use of accessory muscles and clear to auscultation bilaterally EFFORT & INSPECTION: Yes symmetric chest movement AUSCULTATION: clear to auscultation bilaterally Cardio: COMMON NORMALS: regular rate, regular rhythm, S1 normal heart sound present, S2 normal heart sound present, No gallops present (Cardio), No murmurs present (Cardio), No rub (Cardio) and Peripheral pulses 2+ throughout RATE: regular rate RHYTHM: regular rhythm HEART SOUNDS: S1 normal heart sound present and S2 normal heart sound present PERIPHERAL PULSES: Peripheral pulses 2+ throughout GI: COMMON NORMALS: Normal to inspection, nondistended, normoactive bowel sounds present, Soft to palpation, non-tender, No hepatosplenomegaly present and no masses AUSCULTATION: Yes normoactive bowel sounds PALPATION: Yes Soft to palpation and Yes No hepatosplenomegaly present RECTAL EXAM: Yes deferred Extremity: COMMON NORMALS: no clubbing, cyanosis or edema and no pedal edema Neuro: COMMON NORMALS: patient oriented x3 Data : 04/14/21 05:11 04/14/21 05:11 Micro: Microbiology 04/13/21 04:20 Blood Culture - Preliminary Blood NEGATIVE TO DATE 04/13/21 04:15 Blood Culture - Preliminary Blood NEGATIVE TO DATE 04/12/21 16:50 Blood Culture - Preliminary Blood NEGATIVE TO DATE 04/12/21 16:50 Blood Culture - Preliminary Blood NEGATIVE TO DATE 04/13/21 04:10 MRSA Culture - Final Nose 04/12/21 18:46 Gram Stain - Final Sputum - Expectorated Sputum Sputum Culture - Preliminary A&P Assessment and plan (1) Esophageal cancer: Status: Acute (2) HTN (hypertension): Status: Acute (3) Pneumonia: Status: Acute Plan 70 year old male with past medical history of esophageal cancer on chemotherapy with FOLFOX/pembrolizumab, Last chemo cycle done a month back, hypertension, came in with chief complaint of worsening shortness of breath going on for the last 2 weeks. Assessment #Pneumonia: Follow blood culture Sputum culture Urine Legionella antigen: Bacterial antigen panel COVID-19 PCR:Negative Influenza negative Monitor ABG Monitor x-ray chest MRSA PCR:Negative Continue Vanco and Zosyn for now #Sinus tachycardia: #Hypertension: Continue losartan #History of esophageal cancer: Currently on chemotherapy, missed last chemotherapy session was on eighth of this month. Patient will continue to follow oncology as an outpatient #DVT prophylaxis: On Lovenox #CODE STATUS: Full code Attestations Medical Necessity Statement*: Patient is to be in hospital for management of pneumonia. Coding Level of Care Code Acute Buyer Assistant for g Fwd Exam Comprehensive Diagnoses Esophageal cancer C15.9 HTN (hypertension) I10 Pneumonia J18.9
--- NOTE | 2021-04-14 10:56 | USCV_ITS ---
Jatinder Platt Age: 70 Gender: M : 1950 Exam Date: 04/14/2021 13:51 Ordering Phys: Eze Dimas MD Technologist: SWETA Exam Location: [facility] [place]_ Indication: dvt PROCEDURES: Venous duplex imaging was performed in bilateral lower extremities. The following venous structures were evaluated: common femoral vein, profunda vein, proximal portion of the greater saphenous vein, superficial femoral vein, and the popliteal vein. In addition, the posterior tibial and peroneal trunk were evaluated. Serial compression, augmentation maneuvers, and spectral Doppler flow evaluation were performed. FINDINGS: Normal 2-D Doppler and augmentation and compressibility throughout the lower extremity venous structures. Additional imaging through the proximal calf veins also reveals no thrombus. Limited evaluation of the greater saphenous vein is patent with no thrombus. CONCLUSIONS No DVT bilateral lower extremities. Dr. Jaymie Keys DO (Electronically Signed) Final Date: 14 April 2021 16:01 S
[2021-04-14] MEDS: FUROsemide 10 mg/mL SDV 2mL 20 MG IVP (11:06)
[2021-04-14 13:33] LABS: Influenza A by IFA Negative (Negative); Influenza B by IFA Negative (Negative)
--- NOTE | 2021-04-14 16:04 | ECG_ITS ---
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 Measurements Intervals [place] Rate: 127 P: 34 DC: 151 QRS: 68 QRSD: 151 T: 2 QT: 372 QTc: 543 Interpretive Statements SINUS TACHYCARDIA RIGHT BUNDLE BRANCH BLOCK [120+ ms QRS DURATION, UPRIGHT V1, 40+ ms S IN I/aVL/V4/V5/V6] No previous ECG available for comparison Electronically Signed On 04-14-2021 20:24:52 UTILITY SERVICE WORKER by Harjit Rankin M.D. [id number]
[2021-04-14] MEDS: enoxaparin 40 mg/0.4 mL Syringe SUBCUT (17:01)
[2021-04-14] MEDS: LORazepam 2 mg Tablet PO (17:01)
--- NOTE | 2021-04-14 19:05 | PC.NURSE ---
Report to Carlene HONG at this time.
[2021-04-14 20:12] LABS: Vancomycin Trough 13.2 ug/mL (10-15)
[2021-04-14] MEDS: tamsulosin 0.4 mg Capsule PO (21:09)
[2021-04-15] VITALS (15 sets, daily range): BP systolic 103–121; BP diastolic 60–76; PULSE 76–140; RESP 16–22; TEMP 36.3–37.3; O2SAT 88–93
[2021-04-15] MEDS: piperacillin-tazobactam 3.375 GM in sodium chloride 0.9% (plus) 50 ML IV ×3 (01:38→17:07)
[2021-04-15 03:04] LABS: Basophils # 0.1 10^3/uL (0.0-0.1); Eosinophils # 0.5 10^3/uL (0.0-0.8); Eosinophils % 4.3 %; Hematocrit 35.1 % (42.0-52.0); Hemoglobin 11.4 g/dL (11.7-16.6); Lymphocytes # 1.4 10^3/uL (0.8-4.8); Lymphocytes % 11.4 %; Mean Corpuscular HGB Conc 32.5 g/dL (30.0-36.0); Mean Corpuscular Hemoglobin 30.2 pg (28.0-34.0); Mean Corpuscular Volume 93.1 fl (80-94); Monocytes % 8.4 %; Neutrophils # 9.07 10^3/uL (1.8-7.7); Neutrophils % 74.7 %; Nucleated Red Blood Cells % 0 %; Platelet Count 254 10^3/cmm (130-400); Red Blood Count 3.77 10^6/uL (4.1-5.3); Red Cell Distribution Width 14.6 % (12.1-15.1); White Blood Count 12.1 10^3/uL (4.0-10.0)
[2021-04-15 03:29] LABS: Anion Gap 17.8 (5-19); Blood Urea Nitrogen 17 mg/dL (8-23); Calcium 9.3 mg/dL (8.5-10.5); Carbon Dioxide 23 mmol/L (22-29); Chloride 99 mmol/L (98-107); Glucose 134 mg/dL (65-115); Osmolality Calculated 286 mOsm/kg (285-295); Potassium 3.8 mmol/L (3.5-5.1); Sodium 136 mmol/L (136-145)
[2021-04-15] MEDS: losartan 50 mg Tablet PO (05:07)
[2021-04-15] MEDS: pantoprazole DR 40 mg Tablet PO (08:33)
[2021-04-15] MEDS: vancomycin 1,250 MG/250 ML PIGGYBACK 250 MG IV ×2 (08:34→20:49)
[2021-04-15] MEDS: ipratropium-albuterol 3 mL Neb INHALATION (08:43)
[2021-04-15] MEDS: azithromycin 500 MG in sodium chloride 0.9% 250 ML 250 MG IV (10:26)
[2021-04-15] MEDS: LORazepam 2 mg Tablet PO (11:35)
[2021-04-15] MEDS: metoprolol tartrate 25 mg Tablet PO ×2 (11:44→20:50)
--- NOTE | 2021-04-15 14:01 | PC.SOCIAL ---
IMM Update Pg. 2 of IMM updated and reviewed with patient, who verbalized understanding. Copy provided.
[2021-04-15] MEDS: ipratropium 0.5 mg/2.5 mL Neb INHALATION ×2 (14:47→21:44)
[2021-04-15] MEDS: levalbuterol 0.63 mg/3 mL Neb INHALATION ×2 (14:47→21:44)
--- NOTE | 2021-04-15 16:15 | XR_ITS ---
WS: [id number] Portable AP upright chest, 04/15/2021 Clinical Data: PNA Comparison: Portable chest, 04/14/2021. Findings: The pulmonary opacity remains the same with greater opacity on the right than the left. The left subclavian port catheter remains the same position. There is shift of the heart and mediastinum from left to right. Monitor leads are on the chest wall. The heart size remains the same. XR/XR chest 1V portable [id number] Impression: No change in bilateral pulmonary opacities.
--- NOTE | 2021-04-15 17:09 | PM.PN ---
Subjective Subjective: Patient was seen and examined this morning, continues to complain of severe shortness of breath Continue to have sinus tachycardia, continues to be on high supplemental oxygen requirement requiring close to 10 LS oxygen Through [facility]NC. Medications: Medication Review Details: Generic Name Dose Route Start Last Admin Trade Name [place] PRN Reason Stop Dose Admin Albuterol/Ipratrop ium 3 ml 04/12/21 21:00 04/13/21 14:44 Ipratropium-Albu terol 3 Ml Neb INHALATION 3 ml Q6H.RESPIRATORY S CH Administration Enoxaparin Sodium 40 mg 04/12/21 18:30 04/12/21 18:43 Enoxaparin 40 Mg /0.4 Ml Syringe SUBCUT 40 mg Q24H DELORIS Administration Piperacillin Sod/T azobactam 50 mls @ 12.5 mls /hr 04/12/21 18:00 04/13/21 13:00 Sod 3.375 gm/ So dium Chloride IV Infused Q8H DELORIS Infusion Protocol Vancomycin/PEG/NAD A/Lysine/Water 1,250 mg in 250 m ls @ 200 mls/hr 04/12/21 20:00 04/13/21 08:51 Vancocin IV Infused Q12H DELORIS Infusion Losartan Potassium 100 mg 04/13/21 06:00 04/13/21 07:32 Losartan 50 Mg T ablet PO 100 mg QAM DELORIS Administration Pantoprazole Sodiu m 40 mg 04/13/21 09:00 04/13/21 07:[address] 40 Mg Tablet PO 40 mg DAILY DELORIS Administration Tamsulosin HCl 0.4 mg 04/12/21 21:00 04/12/21 21:38 Tamsulosin 0.4 M g Capsule PO 0.4 mg BEDTIME DELORIS Administration Vitals/I&O/Wt Last Vital Signs Temp 99.1 F 04/15/21 16:00 Pulse 104 H 04/15/21 16:00 Resp 18 04/15/21 16:00 BP 103/67 04/15/21 16:00 Pulse Ox 90 04/15/21 16:00 04/15/21 04/15/21 04/15/21 06:59 14:59 22:59 Intake Total 550 / 1400 940 / 940 50 / 990 Output Total 500 / 1050 250 / 250 Balance 50 / 350 690 / 690 50 / 740 Weight last 48 hrs Weight 81.783 kg Weight 84.096 kg Physical Exam Const: COMMON NORMALS: patient oriented x3 HENMT: COMMON NORMALS: normocephalic and atraumatic HEAD & SCALP: normocephalic and atraumatic Eye: COMMON NORMALS: no scleral icterus GENERAL EYE: appearance normal, both eyes and all related structures Chest: COMMONS NORMALS: normal inspection of the chest and normal palpation of entire chest wall CHEST: Yes Symmetrical chest wall rise Resp: COMMON NORMALS: normal respiratory effort, No retractions, No use of accessory muscles and clear to auscultation bilaterally EFFORT & INSPECTION: Yes symmetric chest movement AUSCULTATION: clear to auscultation bilaterally Cardio: COMMON NORMALS: regular rate, regular rhythm, S1 normal heart sound present, S2 normal heart sound present, No gallops present (Cardio), No murmurs present (Cardio), No rub (Cardio) and Peripheral pulses 2+ throughout RATE: regular rate RHYTHM: regular rhythm HEART SOUNDS: S1 normal heart sound present and S2 normal heart sound present PERIPHERAL PULSES: Peripheral pulses 2+ throughout GI: COMMON NORMALS: Normal to inspection, nondistended, normoactive bowel sounds present, Soft to palpation, non-tender, No hepatosplenomegaly present and no masses AUSCULTATION: Yes normoactive bowel sounds PALPATION: Yes Soft to palpation and Yes No hepatosplenomegaly present RECTAL EXAM: Yes deferred Extremity: COMMON NORMALS: no clubbing, cyanosis or edema and no pedal edema Neuro: COMMON NORMALS: patient oriented x3 Data : 04/15/21 02:54 04/15/21 02:54 Micro: Microbiology 04/12/21 18:46 Gram Stain - Final Sputum - Expectorated Sputum Sputum Culture - Final A&P Assessment and plan (1) Esophageal cancer: Status: Acute (2) HTN (hypertension): Status: Acute (3) Pneumonia: Status: Acute Plan 70 year old male with past medical history of esophageal cancer on chemotherapy with FOLFOX/pembrolizumab, Last chemo cycle done a month back, hypertension, came in with chief complaint of worsening shortness of breath going on for the last 2 weeks. Assessment #Pneumonia: CTA chest: Follow blood culture Sputum culture Urine Legionella antigen: Bacterial antigen panel COVID-19 PCR:Negative Influenza negative Monitor ABG Monitor x-ray chest MRSA PCR:Negative Lower extremity Doppler negative for DVT Continue Vanco and Zosyn and azithromycin for now. #Sinus tachycardia: Heart rate into 130s to 140s Started on metoprolol 25 mg p.o. twice daily #Hypertension: Continue losartan #History of esophageal cancer: Currently on chemotherapy, missed last chemotherapy session was on eighth of this month. Patient will continue to follow oncology as an outpatient #DVT prophylaxis: On Lovenox #CODE STATUS: Full code Attestations Medical Necessity Statement*: Patient is still in hospital for management of pneumonia. Time Spent in Patient Care: Greater than 35 minutes (>than 50% of time spent in counselling and/or direct pt care on unit). Coding Level of Care Code Acute Student Accounts Manager for Chg Fwd Exam Comprehensive Diagnoses Esophageal cancer C15.9 HTN (hypertension) I10 Pneumonia J18.9
[2021-04-15] MEDS: enoxaparin 40 mg/0.4 mL Syringe SUBCUT (17:11)
[2021-04-15] MEDS: guaiFENesin 600 mg Tablet 1200 MG PO (18:15)
--- NOTE | 2021-04-15 19:09 | PC.NURSE ---
Report to Imani HONG at this time.
[2021-04-15 20:26] LABS: Adenovirus Not Detected (NOT DETECT); Chlamydia Pneumoniae Not Detected (NOT DETECT); Coronavirus 229E,HKU1,NL63,OC4 Not Detected (NOT DETECT); Human Metapneumovirus Not Detected (NOT DETECT); Human Rhinovirus/Enterovirus Not Detected (NOT DETECT); Influenza A Not Detected (NOT DETECT); Influenza A H1 Not Detected (NOT DETECT); Influenza A H1-2009 Not Detected (NOT DETECT); Influenza A H3 Not Detected (NOT DETECT); Influenza B Not Detected (NOT DETECT); Mycoplasma Pneumoniae Not Detected (NOT DETECT); Parainfluenza Virus Type 1 Not Detected (NOT DETECT); Parainfluenza Virus Type 2 Not Detected (NOT DETECT); Parainfluenza Virus Type 3 Not Detected (NOT DETECT); Parainfluenza Virus Type 4 Not Detected (NOT DETECT); Respiratory Syncytial Virus A Not Detected (NOT DETECT); Respiratory Syncytial Virus B Not Detected (NOT DETECT); SARS-COV-2 Not Detected (NOT DETECT)
[2021-04-15] MEDS: tamsulosin 0.4 mg Capsule PO (20:50)
[2021-04-16] VITALS (76 sets, daily range): BP systolic 94–130; BP diastolic 57–77; PULSE 75–142; RESP 14–44; TEMP 36.2–39.2; O2SAT 77–99; BMI 26.6
--- NOTE | 2021-04-16 00:56 | XRR_ITS ---
PROCEDURE INFORMATION: Exam: XR Chest Exam date and time: 04/16/2021 12:56 AM Age: 70 years old Clinical indication: Shortness of breath and tachypnea; Prior surgery; Surgery type: Chest port; Patient HX: Persistent worsening of SOB. Tachypnea. TECHNIQUE: Imaging protocol: XR of the chest. Views: 1 view. COMPARISON: CR XR chest 1V portable [id number] 04/15/2021 4:35 PM image only. The previous ear report is not retrievable. FINDINGS: Tubes, catheters and devices: Fyuriy-S-Dwvx catheter overlies the left chest with lead tip positioning lower superior vena cava. Lungs: Prominent volume loss of the right lung. Elevation right hemidiaphragm. Extensive parenchymal opacities bilaterally with greatest consolidation on the right. Underlying coarsening or interstitial thickening. Pleural spaces: Pleural thickening or effusion superiorly right chest. Heart/Mediastinum: Cardiomediastinal silhouette is similar. Bones/joints: Degenerative change of the spine. XR/XR chest 1V portable [id number] IMPRESSION: No interval change since 1 day previous.
[2021-04-16 01:09] LABS: Basophils # 0.1 10^3/uL (0.0-0.1); Basophils % 0.4 %; Eosinophils # 0.1 10^3/uL (0.0-0.8); Eosinophils % 0.6 %; Hematocrit 38.6 % (42.0-52.0); Hemoglobin 11.8 g/dL (11.7-16.6); Lymphocytes # 1.4 10^3/uL (0.8-4.8); Lymphocytes % 6.6 %; Mean Corpuscular HGB Conc 30.6 g/dL (30.0-36.0); Mean Corpuscular Hemoglobin 29.9 pg (28.0-34.0); Mean Platelet Volume 9.6 fL (7.4-10.4); Monocytes # 1.3 10^3/uL (0.2-0.9); Monocytes % 6.2 %; Neutrophils # 17.73 10^3/uL (1.8-7.7); Neutrophils % 85.7 %; Nucleated Red Blood Cells % 0 %; Platelet Count 223 10^3/cmm (130-400); Red Blood Count 3.94 10^6/uL (4.1-5.3); Red Cell Distribution Width 14.5 % (12.1-15.1); White Blood Count 20.7 10^3/uL (4.0-10.0)
[2021-04-16 01:13] LABS: ABG PCO2 38.7 mmHg (35-45); ABG PH Result 7.44 (7.35-7.45); Arterial Blood Gas Hematocrit 37.9 % (42-52); Base Excess ABG 1.8 mmol/L (-2.0-2.0); Blood Gas Allen Test Pos; Blood Gas Sample Type Arterial; HCO3 ABG 26.1 mmol/L (22-26); HGB O2 Sat 87.6 % (95-100); Ionized Calcium Level - ABG 1.2 mmol/L (1.1-1.4); Oxygen Saturation ABG 88.5; PO2 ABG 54.8 mmHg (80.0-100.0); Potassium Level - ABG 3.8 mmol/L (3.5-5.0); Total Hemoglobin 12.4 g/dL (14-18)
[2021-04-16 01:14] LABS: Alveolar-Arterial Oxygen Gradi 79.8 mmHg (5-10); Blood Gas Sample Site Radial, left; Oxygen Device NRB
[2021-04-16 01:36] LABS: Troponin T (5th) Once 64 ng/L (0-15)
[2021-04-16 01:37] LABS: Anion Gap 17.8 (5-19); Blood Urea Nitrogen 26 mg/dL (8-23); Calcium 9.1 mg/dL (8.5-10.5); Carbon Dioxide 23 mmol/L (22-29); Chloride 100 mmol/L (98-107); Glucose 106 mg/dL (65-115); NT Pro B Type Natriuretic Pept 677 pg/mL (0-125); Osmolality Calculated 289 mOsm/kg (285-295); Potassium 3.8 mmol/L (3.5-5.1); Sodium 137 mmol/L (136-145)
[2021-04-16 01:47] LABS: Glucose Point of Care 106 mg/dL (70-110)
[2021-04-16] MEDS: piperacillin-tazobactam 3.375 GM in sodium chloride 0.9% (plus) 50 ML IV ×3 (02:28→17:54)
--- NOTE | 2021-04-16 02:34 | USCV_ITS ---
Lc Jatinder Age: 70 Gender: M : 1950 Exam Date: 04/16/2021 06:45 Ordering Phys: Dariana Chapman DO Technologist: Exam Location: [facility] [place] Indication: Shortness of breath BP: / HR: Rhythm: Sinus Technical Quality: MEASUREMENTS (Male / Female) Normal Values FINDINGS Left Ventricle Right Ventricle Right Atrium Left Atrium Mitral Valve Aortic Valve Tricuspid Valve Pulmonic Valve Pericardium Aorta CONCLUSIONS There are no echocardiographic windows to assess cardiac structure and function. Kathleen Samuel MD (Electronically Signed) Final Date: 16 April 2021 15:46 S
--- NOTE | 2021-04-16 03:00 | PC.NURSE ---
ICU arrival; Pt to ICU7 @0245 this am. Febrile at 102.8 axillary. Arrived on 15L nonrebreather. SPO2 at 77%. Bipap placed on pt with instantaneous jump to lower 90%. Pt A&O4. Denies pain. Port accessed and abx initiated. Prescribed meds given along with tylenol. MD Ari at bedside for rounding. Updated on pt status/fever findings. No other orders given at this time. Pt postioned, room education given, and call light in reach. No further needs at this time.
[2021-04-16] MEDS: acetaminophen 325 mg Tablet 650 MG PO (03:09)
[2021-04-16] MEDS: atorvastatin 40 mg Tablet 80 MG PO (03:09)
[2021-04-16] MEDS: aspirin 325 mg Tablet PO (03:09)
[2021-04-16] MEDS: nitroglycerin 1 gm/inch oint Pkt 0.5 INCH TOPICAL (03:09)
[2021-04-16] MEDS: enoxaparin 80 mg/0.8 mL Syringe SUBCUT (03:09)
--- NOTE | 2021-04-16 03:28 | PC.NURSE ---
Assessment done. Patient on 10L , sats 80%. Increase o2 to 13L. Vital signs done, sats 70s. Placed on NRB at 100%. Call out to . EKG done, labs done, and chest xray. Sats continue to be at 80s. Resp rate 40s. Call out to crayon grader. Transfer to ICU
--- NOTE | 2021-04-16 06:38 | PC.NURSE ---
AM dose of Losartan help based on most recent trending VS. MD notified of 100/63 bp. Orders given to hold this AM dose. Mar updated to reflect orderset.
--- NOTE | 2021-04-16 07:00 | ECG_ITS ---
[facility] Test Date: 2021-04-16 Pat Name: Jatinder Platt Department: Room: ICU07 Gender: Male Customer Engagement Representative: : 1950 Requested By: Eze Dimas Order Number: [id number] Rylee MD: Kathleen Samuel M.D. Measurements Intervals [place] Rate: 105 P: 34 ND: 153 QRS: 77 QRSD: 161 T: 4 QT: 403 QTc: 534 Interpretive Statements SINUS TACHYCARDIA RIGHT BUNDLE BRANCH BLOCK [120+ ms QRS DURATION, UPRIGHT V1, 40+ ms S IN I/aVL/V4/V5/V6] Compared to ECG 04/14/2021 16:07:47 No significant changes Electronically Signed On 04-17-2021 9:03:52 TYPE SOLDERING MACHINE TENDER by Kathleen Samuel M.D. [id number]
[2021-04-16 07:34] LABS: Troponin T (5th) Once 68 ng/L (0-15)
--- NOTE | 2021-04-16 07:54 | CT_ITS ---
WS: [id number] CT CHEST TECHNIQUE: Noncontrast CT of the chest with coronal and sagittal reformatted images. CLINICAL INFORMATION: PNA COMPARISON: CT April 12, 2021 DLP: 681.[address] scans at [facility] use at least one of these dose optimization techniques: automated e xposure control; mA and/or kV adjustment per patient size (includes targeted exams where dose is matc hed to clinical indication); or iterative reconstruction. FINDINGS: Moderate to advanced chronic emphysematous changes. Cardiomegaly. Coronary calcification. Enlarged an terior mediastinal and peribronchial lymph nodes unchanged. Perihilar bronchovascular thickening. Small RIGHT greater than LEFT pleural effusions. Diffuse patchy airspace infiltrates with progressed hazy groundglass infiltrates throughout the LEFT lung. Progressed groundglass infiltrates in the LEFT lower lobe and LEFT upper lobe. Interstitial edema and thickening throughout the RIGHT lung is simil ar in appearance. Partial consolidative airspace infiltrates in the RIGHT lower lobe stable in appear ance. Mild thickening of the GE junction is unchanged. History of esophageal neoplasm. Adrenal glands are n ormal. CT/CT chest wo con [id number] IMPRESSION: 1. Progressed hazy groundglass infiltrate throughout the LEFT lung. These are progressed in the LEFT upper lobe and LEFT lower lobe compared to previous. 2. Interstitial infiltrates or edema throughout the RIGHT lung stable in appea lacey with some airspace consolidation RIGHT lower lobe. 3. Small RIGHT greater than LEFT pleural effusions. 4. Chronic emphysematous changes. 5. Enlarged anterior mediastinal and peribronchial lymph nodes. Stable perihil ar bronchovascular thickening.
[2021-04-16] MEDS: levalbuterol 0.63 mg/3 mL Neb INHALATION ×3 (09:00→21:41)
[2021-04-16] MEDS: ipratropium 0.5 mg/2.5 mL Neb INHALATION ×3 (09:00→21:41)
[2021-04-16] MEDS: vancomycin 1,250 MG/250 ML PIGGYBACK 250 MG IV ×2 (09:25→20:02)
[2021-04-16] MEDS: guaiFENesin 600 mg Tablet 1200 MG PO ×2 (09:26→17:52)
[2021-04-16] MEDS: metoprolol tartrate 25 mg Tablet PO ×2 (09:26→20:02)
[2021-04-16] MEDS: pantoprazole DR 40 mg Tablet PO (09:27)
[2021-04-16] MEDS: azithromycin 500 MG in sodium chloride 0.9% 250 ML 250 MG IV (09:41)
--- NOTE | 2021-04-16 10:04 | PC.CHAP ---
Pastoral Care Encounter/Spiritual Assessment Type of Contact [] Declined social worker clinical visit [] Patient/Family/Request visit [] Outpatient visit [] Follow-up visit [] Physician referral [] Code/Alert [x] Routine visit [] Staff referral [] Actively dying [] Patient sleeping [] Family support [] [] Out of room [] Palliative care [] [] Receiving care in room [] Pre-surgical visit [] Trauma [] Long length of stay [x] ICU visit [] Other: Relational/Emotional Strength [] Patient feels connected with others/family/visitors/staff [] Distress [] Loneliness/isolation [] Abandonment Spirituality of Patient [] Person of Ashley [] Attends Episcopal of their Ashley [] Believes in Prayer [] Reads Bible or Orthodox materials [] There are Spiritual issues to be addressed Home Service Technician Interventions [x] Prayer [] Active listening [] Non-anxious presence [] Spiritual/emotional support [] Crisis/trauma care [] Spiritual counseling [] Bereavement support [] Provided bereavement packet [] Provided Bible/devotional materials [] Provided toy/stuffed animal, coloring book to patient or family member [] Provided Communion [] Anointing/[place] [] Salvation [x] Completed spiritual assessment [] Other: Impact on Illness or Injury [] Angry [] Fearful [] Anxious [] Often cries [] Exhaustion [] Unable to work [] Unable to attend mormonism [] Unable to walk/stand [] Unable to read [] Unable to drive [] Unable to eat/drink [] Unable to sleep [] Unable to be with family [] Patient intubated [] Other: Summary Time spent with patient
--- NOTE | 2021-04-16 11:05 | PC.NURSE ---
MAR delay: Zosyn delay due to IV antibiotic incompatibilities. Zosyn started immediately after other abx completed.
[2021-04-16] MEDS: FUROsemide 10 mg/mL SDV 2mL 20 MG IVP (13:07)
[2021-04-16 13:43] LABS: Troponin T (5th) Once 46 ng/L (0-15)
--- NOTE | 2021-04-16 14:22 | P.PN_ITS ---
Subjective Subjective: Patient was seen and examined this morning, continues to complain of severe shortness of breath, last night he had to be moved to ICU because of, significantly increased work of breathing and desaturation. He was placed on BiPAP. Currently is on 50% FiO2. CT chest without contrast was done today: Has shown progressively worsening of pneumonia. Overnight troponins were also ordered: They were unremarkable. Lovenox therapeutic has been discontinued, Nitropaste has been discontinued. 2D echo done this morning: no echocardiographic windows to assess cardiac ?structure and function. Medications: Medication Review Details: Generic Name Dose Route Start Last Admin Trade Name Freq PRN Reason Stop Dose Admin Albuterol/Ipratrop ium 3 ml 04/12/21 21:00 04/13/21 14:44 Ipratropium-Albu terol 3 Ml Neb INHALATION 3 ml Q6H.RESPIRATORY S CH Administration Enoxaparin Sodium 40 mg 04/12/21 18:30 04/12/21 18:43 Enoxaparin 40 Mg /0.4 Ml Syringe SUBCUT 40 mg Q24H DELORIS Administration Piperacillin Sod/T azobactam 50 mls @ 12.5 mls /hr 04/12/21 18:00 04/13/21 13:00 Sod 3.375 gm/ So dium Chloride IV Infused Q8H DELORIS Infusion Protocol Vancomycin/PEG/NAD A/Lysine/Water 1,250 mg in 250 m ls @ 200 mls/hr 04/12/21 20:00 04/13/21 08:51 Vancocin IV Infused Q12H DELORIS Infusion Losartan Potassium 100 mg 04/13/21 06:00 04/13/21 07:32 Losartan 50 Mg T ablet PO 100 mg QAM DELORIS Administration Pantoprazole Sodiu m 40 mg 04/13/21 09:00 04/13/21 07:[address] 40 Mg Tablet PO 40 mg DAILY DELORIS Administration Tamsulosin HCl 0.4 mg 04/12/21 21:00 04/12/21 21:38 Tamsulosin 0.4 M g Capsule PO 0.4 mg BEDTIME DELORIS Administration Vitals/I&O/Wt Last Vital Signs Temp 97.2 F L 04/16/21 12:00 Pulse 86 04/16/21 14:11 Resp 18 04/16/21 14:08 BP 110/65 04/16/21 12:00 Pulse Ox 92 04/16/21 14:11 04/15/21 04/16/21 04/16/21 22:59 06:59 14:59 Intake Total 950 / 1890 230 / 2120 700 / 700 Output Total 550 / 550 Balance 950 / 1640 230 / 1870 150 / 150 Weight last 48 hrs Weight 81.791 kg Weight 81.783 kg Physical Exam Const: COMMON NORMALS: patient oriented x3 HENMT: COMMON NORMALS: normocephalic and atraumatic HEAD & SCALP: normocephalic and atraumatic Eye: COMMON NORMALS: no scleral icterus GENERAL EYE: appearance normal, both eyes and all related structures Chest: COMMONS NORMALS: normal inspection of the chest and normal palpation of entire chest wall CHEST: Yes Symmetrical chest wall rise Resp: COMMON NORMALS: normal respiratory effort, No retractions, No use of accessory muscles and clear to auscultation bilaterally EFFORT & INSPECTION: Yes symmetric chest movement AUSCULTATION: clear to auscultation bilaterally Cardio: COMMON NORMALS: regular rate, regular rhythm, S1 normal heart sound present, S2 normal heart sound present, No gallops present (Cardio), No murmurs present (Cardio), No rub (Cardio) and Peripheral pulses 2+ throughout RATE: regular rate RHYTHM: regular rhythm HEART SOUNDS: S1 normal heart sound present and S2 normal heart sound present PERIPHERAL PULSES: Peripheral pulses 2+ throughout GI: COMMON NORMALS: Normal to inspection, nondistended, normoactive bowel sounds present, Soft to palpation, non-tender, No hepatosplenomegaly present and no masses AUSCULTATION: Yes normoactive bowel sounds PALPATION: Yes Soft to palpation and Yes No hepatosplenomegaly present RECTAL EXAM: Yes deferred Extremity: COMMON NORMALS: no clubbing, cyanosis or edema and no pedal edema Neuro: COMMON NORMALS: patient oriented x3 Data : 04/16/21 00:52 04/16/21 00:52 A&P Assessment and plan (1) Esophageal cancer: Status: Acute (2) HTN (hypertension): Status: Acute (3) Pneumonia: Status: Acute Plan 70 year old male with past medical history of esophageal cancer on chemotherapy with FOLFOX/pembrolizumab, Last chemo cycle done a month back, hypertension, came in with chief complaint of worsening shortness of breath going on for the last 2 weeks. Assessment #Acute hypoxic respiratory failure secondary to pneumonia #Pneumonia: CTA chest: Follow blood culture Sputum culture Urine Legionella antigen: Bacterial antigen panel COVID-19 PCR:Negative Influenza negative Monitor ABG Monitor x-ray chest MRSA PCR:Negative Lower extremity Doppler negative for DVT Continue Vanco Zosyn , levofloxacin and azithromycin for now. #Sinus tachycardia: Heart rate into 130s to 140s Started on metoprolol 25 mg p.o. twice daily #Hypertension: Continue losartan #History of esophageal cancer: Currently on chemotherapy, missed last chemotherapy session was on eighth of this month. Patient will continue to follow oncology as an outpatient #DVT prophylaxis: On Lovenox #CODE STATUS: Full code Attestations Medical Necessity Statement*: Patient needs to be in hospital for management of pneumonia and respiratory failure. Time Spent in Patient Care: Greater than 35 minutes (>than 50% of time spent in counselling and/or direct pt care on unit) . Coding Level of Care Code Acute Psychologist Industrial Organizational for g Fwd Exam Comprehensive Diagnoses Esophageal cancer C15.9 HTN (hypertension) I10 Pneumonia J18.9
--- NOTE | 2021-04-16 14:30 | PC.NURSE ---
Pt verbalized permission for information to be given over the phone to his brother and [id number]:Artie and/or Haylee Platt. Their phone number :[phone]
[2021-04-16] MEDS: levofloxacin-dextrose 5 % 750 MG/150 ML PREMIX 100 MG IV (16:01)
--- NOTE | 2021-04-16 18:55 | PC.NURSE ---
Shift Note: Pt rested in bed throughout the shift. He went to CT of the chest this am, non-rebreather utilized. Pt's Pt O2 sat dropped to 70% after pt lied flat on his back for CT then back to his own bed. Pt recovered some on the way back to ICU, sats at 82% when arrived to his room.. BiPap immediately administered. O2 sats recovered well after that. He has tolerated O2 decreased today from 70% to 50%. He was able to maintain his O2 levels when BIPap mask remove for medications and drinks. Lung sounds remain diminished. Left chest port patent with good blood return. Urne output of 700ml and a moderated BM this shift. Frequent safety and comfort rounds continue. Orders and/or nursing care completed as indicated. Patient monitored for response to intervention and treatment(s). Education provided includes Zosyn, Levaquin, Azithromycin, mucinex and CT. Patient and/or retail sales representative verbalizes understanding of medications, and ongoing plan of care. Will continue to monitor.
--- NOTE | 2021-04-16 19:04 | PC.NURSE ---
All care and charting by Lakia Galan, student nurse, directly supervised by this nurse.
[2021-04-16] MEDS: guaiFENesin-dextromethorphan UDC 10 mL PO (20:02)
[2021-04-16] MEDS: tamsulosin 0.4 mg Capsule PO (20:02)
[2021-04-17] VITALS (35 sets, daily range): BP systolic 81–144; BP diastolic 45–91; PULSE 96–135; RESP 18–43; TEMP 36.7–37.2; O2SAT 86–99
[2021-04-17] MEDS: piperacillin-tazobactam 3.375 GM in sodium chloride 0.9% (plus) 50 ML IV ×3 (02:54→18:42)
[2021-04-17 03:04] LABS: Basophils # 0.1 10^3/uL (0.0-0.1); Basophils % 0.3 %; Eosinophils % 0.1 %; Hematocrit 31.7 % (42.0-52.0); Hemoglobin 10.2 g/dL (11.7-16.6); Lymphocytes # 0.7 10^3/uL (0.8-4.8); Lymphocytes % 3.9 %; Mean Corpuscular HGB Conc 32.2 g/dL (30.0-36.0); Mean Corpuscular Hemoglobin 30.2 pg (28.0-34.0); Mean Corpuscular Volume 93.8 fl (80-94); Mean Platelet Volume 9.7 fL (7.4-10.4); Monocytes # 0.8 10^3/uL (0.2-0.9); Monocytes % 4.8 %; Neutrophils # 15.19 10^3/uL (1.8-7.7); Neutrophils % 90.3 %; Nucleated Red Blood Cells % 0 %; Platelet Count 184 10^3/cmm (130-400); Red Blood Count 3.38 10^6/uL (4.1-5.3); Red Cell Distribution Width 14.6 % (12.1-15.1); White Blood Count 16.8 10^3/uL (4.0-10.0)
[2021-04-17 03:27] LABS: Anion Gap 15.5 (5-19); Blood Urea Nitrogen 34 mg/dL (8-23); Calcium 8.2 mg/dL (8.5-10.5); Carbon Dioxide 24 mmol/L (22-29); Chloride 98 mmol/L (98-107); Glucose 139 mg/dL (65-115); Osmolality Calculated 288 mOsm/kg (285-295); Potassium 3.5 mmol/L (3.5-5.1); Sodium 134 mmol/L (136-145)
--- NOTE | 2021-04-17 05:44 | PC.NURSE ---
New orders; Persistent cough exhibited by pt. Patient breathing 30-40/min and unable to sustain above 85% SPO2 with assistance of 100% BiPAP. HR climbed to 140's and sustained at rate. MD notified of change in condition. New orders to give Robitussin 10mL Q4H PO PRN basis. Med administered as indicated.
--- NOTE | 2021-04-17 06:12 | PC.NURSE ---
New orders for AM Losartan dose to be held was received by , based on trending BP's. Mar updated to reflect order change.
[2021-04-17] MEDS: ipratropium 0.5 mg/2.5 mL Neb INHALATION ×3 (09:05→20:14)
[2021-04-17] MEDS: levalbuterol 0.63 mg/3 mL Neb INHALATION ×3 (09:05→20:14)
[2021-04-17] MEDS: vancomycin 1,250 MG/250 ML PIGGYBACK 250 MG IV (09:22)
[2021-04-17] MEDS: azithromycin 500 MG in sodium chloride 0.9% 250 ML 250 MG IV (09:23)
[2021-04-17] MEDS: enoxaparin 40 mg/0.4 mL Syringe SUBCUT (09:23)
[2021-04-17] MEDS: guaiFENesin 600 mg Tablet 1200 MG PO ×2 (09:30→18:43)
[2021-04-17] MEDS: LORazepam 2 mg Tablet PO ×2 (09:30→15:09)
[2021-04-17] MEDS: pantoprazole DR 40 mg Tablet PO (09:30)
[2021-04-17] MEDS: guaiFENesin-dextromethorphan UDC 10 mL PO (09:30)
[2021-04-17] MEDS: metoprolol tartrate 25 mg Tablet PO (09:35)
--- NOTE | 2021-04-17 13:41 | PC.SOCIAL ---
IMM UPDATED IMM dated and initialed and copy given to patient
--- NOTE | 2021-04-17 14:10 | PM.PN ---
Subjective Subjective: Patient was seen and examined this morning, continues to have significant desaturation, when he is off BiPAP, currently requiring 60% FiO2, I/E : 28/09 , continues to be significantly tachycardic and tachypneic. WBC count has slightly trended down to 16.8, serum sodium has also trended down to 134 and BUN has went up to 34, His vitals and labs have been reviewed. Medications: Medication Review Details: Generic Name Dose Route Start Last Admin Trade Name [place] PRN Reason Stop Dose Admin Albuterol/Ipratrop ium 3 ml 04/12/21 21:00 04/13/21 14:44 Ipratropium-Albu terol 3 Ml Neb INHALATION 3 ml Q6H.RESPIRATORY S CH Administration Enoxaparin Sodium 40 mg 04/12/21 18:30 04/12/21 18:43 Enoxaparin 40 Mg /0.4 Ml Syringe SUBCUT 40 mg Q24H DELORIS Administration Piperacillin Sod/T azobactam 50 mls @ 12.5 mls /hr 04/12/21 18:00 04/13/21 13:00 Sod 3.375 gm/ So dium Chloride IV Infused Q8H DELORIS Infusion Protocol Vancomycin/PEG/NAD A/Lysine/Water 1,250 mg in 250 m ls @ 200 mls/hr 04/12/21 20:00 04/13/21 08:51 Vancocin IV Infused Q12H DELORIS Infusion Losartan Potassium 100 mg 04/13/21 06:00 04/13/21 07:32 Losartan 50 Mg T ablet PO 100 mg QAM DELORIS Administration Pantoprazole Sodiu m 40 mg 04/13/21 09:00 04/13/21 07:[address] 40 Mg Tablet PO 40 mg DAILY DELORIS Administration Tamsulosin HCl 0.4 mg 04/12/21 21:00 04/12/21 21:38 Tamsulosin 0.4 M g Capsule PO 0.4 mg BEDTIME DELORIS Administration Vitals/I&O/Wt Last Vital Signs Temp 98.5 F 04/17/21 04:00 Pulse 110 H 04/17/21 14:09 Resp 35 H 04/17/21 14:00 BP 100/60 04/17/21 05:44 Pulse Ox 90 04/17/21 14:00 04/16/21 04/17/21 04/17/21 22:59 06:59 14:59 Intake Total 950 / 1650 150 / 1800 550 / 550 Output Total 400 / 950 250 / 1200 Balance 550 / 700 -100 / 600 550 / 550 Weight last 48 hrs Weight 82.01 kg Weight 81.791 kg Physical Exam Const: COMMON NORMALS: patient oriented x3 HENMT: COMMON NORMALS: normocephalic and atraumatic HEAD & SCALP: normocephalic and atraumatic Eye: COMMON NORMALS: no scleral icterus GENERAL EYE: appearance normal, both eyes and all related structures Chest: CHEST: Yes Symmetrical chest wall rise Resp: COMMON NORMALS: normal respiratory effort, No retractions and No use of accessory muscles EFFORT & INSPECTION: Yes symmetric chest movement OTHER: Coarse breath sounds bilaterally. Cardio: COMMON NORMALS: regular rate, regular rhythm, S1 normal heart sound present, S2 normal heart sound present, No gallops present (Cardio), No murmurs present (Cardio), No rub (Cardio) and Peripheral pulses 2+ throughout RATE: regular rate RHYTHM: regular rhythm HEART SOUNDS: S1 normal heart sound present and S2 normal heart sound present PERIPHERAL PULSES: Peripheral pulses 2+ throughout GI: COMMON NORMALS: Normal to inspection, nondistended, normoactive bowel sounds present, Soft to palpation, non-tender, No hepatosplenomegaly present and no masses AUSCULTATION: Yes normoactive bowel sounds PALPATION: Yes Soft to palpation and Yes No hepatosplenomegaly present RECTAL EXAM: Yes deferred Extremity: COMMON NORMALS: no clubbing, cyanosis or edema and no pedal edema Neuro: COMMON NORMALS: patient oriented x3 Data : 04/17/21 02:52 04/17/21 02:52 Micro: Microbiology 04/16/21 13:06 Legionella Urinary Antigen - Final Urine,Voided A&P Assessment and plan (1) Esophageal cancer: Status: Acute (2) HTN (hypertension): Status: Acute (3) Pneumonia: Status: Acute Plan 70 year old male with past medical history of esophageal cancer on chemotherapy with FOLFOX/pembrolizumab, Last chemo cycle done a month back, hypertension, came in with chief complaint of worsening shortness of breath going on for the last 2 weeks. Assessment #Acute hypoxic respiratory failure secondary to pneumonia CTA chest: Negative for pulmonary evaluation, bilateral airspace disease Chest without contrast: Progressed hazy groundglass infiltrate throughout the LEFT lung. These are progressed in the LEFT upper lobe and LEFT lower lobe compared to previous.Interstitial infiltrates or edema throughout the RIGHT lung stable in appearance with some airspace consolidation RIGHT lower lobe.Small RIGHT greater than LEFT pleural effusions. Chronic emphysematous changes. Lower extremity Dopplers were negative for DVT 2D echo: No good window Follow blood culture: NTD Sputum culture: Moderate normal maria ines Urine Legionella antigen: Negative Bacterial antigen panel COVID-19 PCR:Negative Repeat Covid PCR Respiratory viral panel negative Influenza negative Monitor ABG Monitor x-ray chest MRSA PCR:Negative Lower extremity Doppler negative for DVT Continue Vanco , Zosyn , levofloxacin Was on azithromycin discontinued on 04/17 #Sinus tachycardia: Heart rate into 130s to 140s Started on metoprolol 25 mg p.o. twice daily #Hypertension: Continue losartan #History of esophageal cancer: Currently on chemotherapy, missed last chemotherapy session was on eighth of this month. Patient will continue to follow oncology as an outpatient #DVT prophylaxis: On Lovenox #CODE STATUS: Full code Attestations Medical Necessity Statement*: Patient is to be in hospital for management of respiratory failure. Time Spent in Patient Care: Greater than 35 minutes (>than 50% of time spent in counselling and/or direct pt care on unit). Critical Care Time: 45 Coding Level of Care Code Acute Senior Payroll Specialist for samra Fwd Exam Comprehensive Diagnoses Esophageal cancer C15.9 HTN (hypertension) I10 Pneumonia J18.9
[2021-04-17] MEDS: FUROsemide 10 mg/mL SDV 2mL 20 MG IVP (15:14)
[2021-04-17 17:44] LABS: Adenovirus Not Detected (NOT DETECT); Chlamydia Pneumoniae Not Detected (NOT DETECT); Coronavirus 229E,HKU1,NL63,OC4 Not Detected (NOT DETECT); Human Metapneumovirus Not Detected (NOT DETECT); Human Rhinovirus/Enterovirus Not Detected (NOT DETECT); Influenza A Not Detected (NOT DETECT); Influenza A H1 Not Detected (NOT DETECT); Influenza A H1-2009 Not Detected (NOT DETECT); Influenza A H3 Not Detected (NOT DETECT); Influenza B Not Detected (NOT DETECT); Mycoplasma Pneumoniae Not Detected (NOT DETECT); Parainfluenza Virus Type 1 Not Detected (NOT DETECT); Parainfluenza Virus Type 2 Not Detected (NOT DETECT); Parainfluenza Virus Type 3 Not Detected (NOT DETECT); Parainfluenza Virus Type 4 Not Detected (NOT DETECT); Respiratory Syncytial Virus A Not Detected (NOT DETECT); Respiratory Syncytial Virus B Not Detected (NOT DETECT); SARS-COV-2 Not Detected (NOT DETECT)
--- NOTE | 2021-04-17 19:25 | XRR_ITS ---
PROCEDURE INFORMATION: Exam: XR Chest Exam date and time: 04/17/2021 7:25 PM Age: 70 years old Clinical indication: Device placement; Ett placement (vent status); Additional info: Intubation TECHNIQUE: Imaging protocol: XR of the chest. Views: 1 view. COMPARISON: CT chest wo con [id number] 04/16/2021 8:16 AM FINDINGS: Tubes, catheters and devices: There is an endotracheal tube present, with distal tip 5.5 cm above the uyen. There is an enteric tube present with distal tip in the stomach. No change in left-sided infusion port. Lungs: Diffuse nonspecific bilateral pulmonary infiltrates, unchanged. Pleural spaces: No pleural effusion. No pneumothorax. Heart/Mediastinum: No cardiomegaly. Bones/joints: No acute abnormality demonstrated. XR/XR chest 1V portable [id number] IMPRESSION: 1. There is an endotracheal tube present, with distal tip 5.5 cm above the uyen. 2. There is an enteric tube present with distal tip in the stomach. 3. Diffuse nonspecific bilateral pulmonary infiltrates, unchanged.
--- NOTE | 2021-04-17 19:25 | PC.NURSE ---
Shift Note: Pt rested in bed throughout the shift. He wore BiPaP at 60% FIO2. He maintained a sat greater than 90 , except for when mask off for meds and sips. His heart rate and his work of breathing increased as the day progressed. He received Ativan tiwce for anxiousness, and a respiratory rate greater than 35. It worked in the am and helped him be more comfortable. After the afternoon dose he was more confused, pulling his gown off and hold the BiPap mask enough to make machine alarm. He was intubated at shift change. He had 650ml urine output this shift. He has face timed his family this evening and family now at bedside. He is afebrile. Left chest port patent with good blood return. Frequent safety and comfort rounds continue. Orders and/or nursing care completed as indicated. Patient monitored for response to intervention and treatment(s). Education provided includes BiPap, Xanax, progress and plan of care. Patient and/or apprenticeship representative Verbalized understadning of ongoing care. Will continue to monitor.
--- NOTE | 2021-04-17 19:30 | P.PNCC_ITS ---
Critical Care Event Note 70 Y O M With PMH H/O Ca esophagus on chemotherapy currently being managed for Ac hypoxic r/f 2/2 PNA.Patient was seen at the bedside at around 6:30 PM he was extremely tachycardic, tachypenic , hypoxic ,was agitated and was not tolerating BIPAP well. He has been on BIPAP for quite good time and is at high risk for SILI given the way he is tachypenic and amount of Tv he is pulling taking into account the leak,his inability to tolerate BIPAP and given impending R/F possibility of intubation was discussed with him and he wanted to be intubated as he was not comfortable on BIPAP,ativan too was tried earlier during the day,with not of much help. Family was at bedside before intubation,and they were able to see and talk to the patient.Patient was electively intubated,it was a eventful intubation.Patient was placed on mechanical ventilation. Post intubation RT I.J Central line was placed.Xray obtained later showed correct placement of E.T Tube as well as RT.I.J Central line no PTX was identified. The high probability of a clinically significant, sudden or life threatening deterioration of the patient's [] system(s) required my full and direct attention, intervention and personal management. The critical care time is as shown. This time is in addition to time spent performing any reported procedures but includes the following: [x] Data and vital sign review and interpretation [x] Patient assessment, examination and intervention [x] Documentation [x] Medication orders and management Critical Care Time Code activated: No Critical Care Time (min): 60 Coding Level of Care Code Acute R D Intern for Rosendo Salgado
[2021-04-17] MEDS: succinylcholine 20 mg/mL SDV 10mL 100 MG IVP (19:53)
[2021-04-17] MEDS: midazolam 1 mg/mL INJ 2 mL 2 MG IVP (19:53)
[2021-04-17] MEDS: propofol 1,000 MG/100 ML INJ 19.68 MG IV (19:54)
--- NOTE | 2021-04-17 20:33 | XRR_ITS ---
PROCEDURE INFORMATION: Exam: XR Chest Exam date and time: 04/17/2021 8:33 PM Age: 70 years old Clinical indication: Device placement; Picc; Additional info: Right ij TECHNIQUE: Imaging protocol: XR of the chest. Views: 1 view. COMPARISON: CR XR chest 1V portable [id number] 04/17/2021 7:22 PM FINDINGS: Tubes, catheters and devices: New right jugular central line with tip overlying right atrium. Lungs: Bilateral nonspecific pulmonary infiltrates, unchanged. Pleural spaces: No pleural effusion. No pneumothorax. Heart/Mediastinum: No cardiomegaly. Bones/joints: Unremarkable. Other findings: Support lines otherwise appear unchanged. XR/XR chest 1V portable [id number] IMPRESSION: 1. New right jugular central line with tip overlying right atrium. No associated pneumothorax. 2. Bilateral nonspecific pulmonary infiltrates, unchanged.
--- NOTE | 2021-04-17 21:01 | PM.ACPR ---
Acute Procedures Central Line Placement: Right IJ: Time out performed: Yes MD prep: mask, gown and gloves Central line prep: Chlorhexidine scrub and sterile drapes applied Local anesthesia used: lidocaine 1% Amount of anesthesia used (ml): 10 Ultrasound used for placement: Yes Central line lumen inserted: triple Post procedure: sutured in place, good blood return, all ports aspirated, flushed, capped and sterile dressing applied Post procedure x-ray: tip of catheter in good position and no pneumothorax seen Patient tolerated procedure: well and no complications
--- NOTE | 2021-04-17 21:05 | PM.ACPR ---
Acute Procedures Intubation: Time out performed: Yes Sedative: etomidate Mg given: 20 Paralytic: succinylcholine Mg given: 100 Laryngoscope: fiber optic video scope ET tube size: 8 ET tube uncuffed: Yes Tube secured depth (cm): 25 Tube secured location: lips Tube placement confirmation: visualized tube passing through cords, equal breath sounds bilaterally, no breath sounds over epigastrium, confirmation by capnometry and color change noted Patient tolerated procedure: well and no complications Intubation complications: none
[2021-04-17 21:42] LABS: ABG PCO2 42.4 mmHg (35-45); ABG PH Result 7.39 (7.35-7.45); Alveolar-Arterial Oxygen Gradi 56.2 mmHg (5-10); Arterial Blood Gas Hematocrit 38.2 % (42-52); Base Excess ABG 0.8 mmol/L (-2.0-2.0); Blood Gas Allen Test Pos; Blood Gas Operator Identificat JB; Blood Gas Sample Site Radial, right; Blood Gas Sample Type Arterial; Carboxyhemoglobin 1.4 %THgb (0.4-20.1); HCO3 ABG 25.9 mmol/L (22-26); HGB O2 Sat 93.7 % (95-100); Ionized Calcium Level - ABG 1.2 mmol/L (1.1-1.4); Methemoglobin 0.7 % (0.4-1.5); Oxygen Device VENT; Oxygen Saturation ABG 95.8; PO2 ABG 82.6 mmHg (80.0-100.0); Potassium Level - ABG 3.4 mmol/L (3.5-5.0); Total Hemoglobin 12.5 g/dL (14-18)
--- NOTE | 2021-04-17 22:03 | PC.NURSE ---
At [facility] Patient began desatting and breathing extremely fast. Dr. Dimas in unit and notified and made the decision to intubate patient. Patients family daughter and granddaughter came to see patient before intubation. They gave verbal consent for central line placement. Family seen patient after procedure. Right IJ inserted per Dr. Dimas. Mae inserted as well. Patient more stable. Tube feedings to be started per orders.
[2021-04-18] VITALS (75 sets, daily range): BP systolic 78–128; BP diastolic 47–69; PULSE 83–129; RESP 15–22; TEMP 36.5–38.5; O2SAT 88–99
[2021-04-18] MEDS: propofol 1,000 MG/100 ML INJ 17.22 MG IV ×2 (01:00→06:49)
[2021-04-18] MEDS: piperacillin-tazobactam 3.375 GM in sodium chloride 0.9% (plus) 50 ML IV ×3 (02:36→17:34)
[2021-04-18] MEDS: ipratropium 0.5 mg/2.5 mL Neb INHALATION ×3 (03:07→14:13)
[2021-04-18] MEDS: levalbuterol 0.63 mg/3 mL Neb INHALATION ×4 (03:07→20:00)
--- NOTE | 2021-04-18 05:00 | XRR_ITS ---
PROCEDURE INFORMATION: Exam: XR Chest Exam date and time: 04/18/2021 5:00 AM Age: 70 years old Clinical indication: Dyspnea; Additional info: Pna TECHNIQUE: Imaging protocol: XR of the chest. Views: 1 view. COMPARISON: CR (CHEST, ) 04/17/2021 8:50 PM FINDINGS: Tubes, catheters and devices: Stable left central line. Stable right central line. Enteric tube tip is beyond the proximal portion of the stomach and is not seen because it is below the inferior margin of the film. Stable endotracheal tube. Lungs: Continued moderate to severe peripheral pneumonia with relative sparing of the central lung zones. Pleural spaces: Unremarkable. No pleural effusion. No pneumothorax. Heart/Mediastinum: Unremarkable. No cardiomegaly. Bones/joints: Unremarkable. XR/XR chest 1V portable [id number] IMPRESSION: Continued moderate to severe peripheral pneumonia with relative sparing of the central lung zones.
[2021-04-18 05:01] LABS: ABG PCO2 58.7 mmHg (35-45); ABG PH Result 7.28 (7.35-7.45); Alveolar-Arterial Oxygen Gradi 49.4 mmHg (5-10); Arterial Blood Gas Hematocrit 40.3 % (42-52); Base Excess ABG -0.5 mmol/L (-2.0-2.0); Blood Gas Allen Test Pos; Blood Gas Operator Identificat JB; Blood Gas Sample Site Radial, right; Blood Gas Sample Type Arterial; Carboxyhemoglobin 0.7 %THgb (0.4-20.1); HCO3 ABG 27.4 mmol/L (22-26); HGB O2 Sat 96.7 % (95-100); Ionized Calcium Level - ABG 1.2 mmol/L (1.1-1.4); Methemoglobin 0.9 % (0.4-1.5); Oxygen Device VENT; Oxygen Saturation ABG 98.3; Potassium Level - ABG 3.7 mmol/L (3.5-5.0); Total Hemoglobin 13.2 g/dL (14-18)
[2021-04-18 06:11] LABS: Basophils # 0.1 10^3/uL (0.0-0.1); Basophils % 0.4 %; Eosinophils # 1.1 10^3/uL (0.0-0.8); Eosinophils % 5.4 %; Hematocrit 33.1 % (42.0-52.0); Hemoglobin 10.5 g/dL (11.7-16.6); Lymphocytes # 0.6 10^3/uL (0.8-4.8); Mean Corpuscular HGB Conc 31.7 g/dL (30.0-36.0); Mean Corpuscular Hemoglobin 30.6 pg (28.0-34.0); Mean Corpuscular Volume 96.5 fl (80-94); Mean Platelet Volume 10.5 fL (7.4-10.4); Monocytes # 0.7 10^3/uL (0.2-0.9); Monocytes % 3.6 %; Neutrophils # 17.36 10^3/uL (1.8-7.7); Neutrophils % 86.8 %; Nucleated Red Blood Cells % 0 %; Platelet Count 193 10^3/cmm (130-400); Red Blood Count 3.43 10^6/uL (4.1-5.3); Red Cell Distribution Width 14.9 % (12.1-15.1)
[2021-04-18 06:38] LABS: D Dimer >= 20.00 ug/mIFEU (0-0.59)
[2021-04-18 06:42] LABS: Blood Urea Nitrogen 42 mg/dL (8-23); Calcium 8.3 mg/dL (8.5-10.5); Carbon Dioxide 26 mmol/L (22-29); Chloride 98 mmol/L (98-107); Glucose 152 mg/dL (65-115); Osmolality Calculated 299 mOsm/kg (285-295); Sodium 138 mmol/L (136-145)
[2021-04-18] MEDS: vancomycin 1,250 MG/250 ML PIGGYBACK 200 MG IV ×2 (08:13→19:42)
[2021-04-18] MEDS: enoxaparin 40 mg/0.4 mL Syringe SUBCUT (08:13)
[2021-04-18] MEDS: guaiFENesin 600 mg Tablet 1200 MG PO ×2 (09:04→17:33)
[2021-04-18] MEDS: pantoprazole 40 mg SDV IVP (09:04)
--- NOTE | 2021-04-18 10:31 | P.PN_ITS ---
Subjective Subjective: Patient was seen and examined,continue to be on mechanical ventilation.VC/AC Mode : Tv : 500, PEEP :8 , FIO2 :60 % R/R :20 Am ABG : Ph : 7.28 ,PCO2: 58, PO2: 118 , FIO2 : 80 % BUN/SCR has gone today : 42/1.4 , D-Dimer is significantly high today : >20, my clinical suspicion for P/E is low,likley 2/2 to sepsis, Can consider giving one dose of lovenox therapeutic , CTA chest and Doppler vein l/e done earlier has been negative,malignancy is a concern for possible P/E. Will hold on repeat CTA chest as kidney function has slightly worsened.Levophed requirement went up during the day initially , but later is slowly coming down.Xray chest has failed to show any PTX. Patient will likely need lasix in am if kidney function is acceptable.To deal with fluid status. His other vitals and labs have been reviewed. Medications: Medication Review Details: Generic Name Dose Route Start Last Admin Trade Name Petrosq PRN Reason Stop Dose Admin Albuterol/Ipratrop ium 3 ml 04/12/21 21:00 04/13/21 14:44 Ipratropium-Albu terol 3 Ml Neb INHALATION 3 ml Q6H.RESPIRATORY S CH Administration Enoxaparin Sodium 40 mg 04/12/21 18:30 04/12/21 18:43 Enoxaparin 40 Mg /0.4 Ml Syringe SUBCUT 40 mg Q24H DELORIS Administration Piperacillin Sod/T azobactam 50 mls @ 12.5 mls /hr 04/12/21 18:00 04/13/21 13:00 Sod 3.375 gm/ So dium Chloride IV Infused Q8H DELORIS Infusion Protocol Vancomycin/PEG/NAD A/Lysine/Water 1,250 mg in 250 m ls @ 200 mls/hr 04/12/21 20:00 04/13/21 08:51 Vancocin IV Infused Q12H DELORIS Infusion Losartan Potassium 100 mg 04/13/21 06:00 04/13/21 07:32 Losartan 50 Mg T ablet PO 100 mg QAM DELORIS Administration Pantoprazole Sodiu m 40 mg 04/13/21 09:00 04/13/21 07:[address] 40 Mg Tablet PO 40 mg DAILY DELORIS Administration Tamsulosin HCl 0.4 mg 04/12/21 21:00 04/12/21 21:38 Tamsulosin 0.4 M g Capsule PO 0.4 mg BEDTIME DELORIS Administration Vitals/I&O/Wt Last Vital Signs Temp 99.5 F 04/18/21 08:15 Pulse 111 H 04/18/21 08:25 Resp 20 H 04/18/21 08:27 BP 86/47 04/18/21 08:15 Pulse Ox 93 04/18/21 08:27 04/17/21 04/18/21 04/18/21 22:59 06:59 14:59 Intake Total 100 / 1050 610 / 1660 183.149 / 183.149 Output Total 200 / 650 500 / 1150 Balance -100 / 400 110 / 510 183.149 / 183.149 Weight last 48 hrs Weight 82.01 kg Physical Exam Const: COMMON NORMALS: patient oriented x3 HENMT: COMMON NORMALS: normocephalic and atraumatic HEAD & SCALP: normocephalic and atraumatic Eye: COMMON NORMALS: no scleral icterus GENERAL EYE: appearance normal, both eyes and all related structures Chest: COMMONS NORMALS: normal inspection of the chest and normal palpation of entire chest wall CHEST: Yes Symmetrical chest wall rise Resp: COMMON NORMALS: normal respiratory effort, No retractions and No use of accessory muscles EFFORT & INSPECTION: Yes symmetric chest movement OTHER: Coarse breath sounds bilaterally. Cardio: COMMON NORMALS: regular rate, regular rhythm, S1 normal heart sound present, S2 normal heart sound present, No gallops present (Cardio), No murmurs present (Cardio), No rub (Cardio) and Peripheral pulses 2+ throughout RATE: regular rate RHYTHM: regular rhythm HEART SOUNDS: S1 normal heart sound present and S2 normal heart sound present PERIPHERAL PULSES: Peripheral pulses 2+ throughout GI: COMMON NORMALS: Normal to inspection, nondistended, normoactive bowel sounds present, Soft to palpation, non-tender, No hepatosplenomegaly present and no masses AUSCULTATION: Yes normoactive bowel sounds PALPATION: Yes Soft to palpation and Yes No hepatosplenomegaly present RECTAL EXAM: Yes deferred Extremity: COMMON NORMALS: no clubbing, cyanosis or edema and no pedal edema Neuro: COMMON NORMALS: patient oriented x3 Urinary Catheter Management: Mae: Cath Placed During This Visit: yes Reason for Continuing Indwelling Catheter: Accurate Measurement of Urinary Output in Critically Ill Patients Urinary Catheter Date of Insertion: 04/17/21 Urinary Catheter Time of Insertion: 21:57 Data : 04/18/21 04:35 04/18/21 04:35 Micro: Microbiology 04/13/21 04:20 Blood Culture - Final Blood NO GROWTH AFTER 5 DAYS 04/13/21 04:15 Blood Culture - Final Blood NO GROWTH AFTER 5 DAYS 04/12/21 16:50 Blood Culture - Final Blood NO GROWTH AFTER 5 DAYS 04/12/21 16:50 Blood Culture - Final Blood NO GROWTH AFTER 5 DAYS 04/16/21 13:06 Legionella Urinary Antigen - Final Urine,Voided Bacterial Antigens - Final A&P Assessment and plan (1) Esophageal cancer: Status: Acute (2) HTN (hypertension): Status: Acute (3) Pneumonia: Status: Acute Plan 70 year old male with past medical history of esophageal cancer on chemotherapy with FOLFOX/pembrolizumab, Last chemo cycle done a month back, hypertension, came in with chief complaint of worsening shortness of breath going on for the last 2 weeks. Assessment #Acute hypoxic respiratory failure secondary to pneumonia CTA chest: Negative for pulmonary evaluation, bilateral airspace disease C.T Chest without contrast: Progressed hazy groundglass infiltrate throughout the LEFT lung. These are progressed in the LEFT upper lobe and LEFT lower lobe compared to previous.Interstitial infiltrates or edema throughout the RIGHT lung stable in appearance with some airspace consolidation RIGHT lower lobe.Small RIGHT greater than LEFT pleural effusions. Chronic emphysematous changes. Lower extremity Dopplers were negative for DVT 2D echo: No good window Follow blood culture: NTD Sputum culture: Moderate normal maria ines Urine Legionella antigen: Negative Bacterial antigen panel COVID-19 PCR:Negative Repeat Covid PCR:Negative Respiratory viral panel negative Influenza negative Monitor ABG Monitor x-ray chest MRSA PCR:Negative Lower extremity Doppler negative for DVT Continue Vanco , Zosyn , levofloxacin Was on azithromycin discontinued on 04/17 #Septic shock secondary to pneumonia: #PNA #H/O In appropriate Sinus tachycardia: Heart rate into 130s to 140s Was on metoprolol 25 mg p.o. twice daily # ELIZABETH ON CKD likely 2/2 To ATN 2/2 Ac Hypotension Follow BMP Monitor I/O Charting Avoid Nephrotoxic Urine electrolytes Possible Renal Consult #Hypertension: Was on losartan #History of esophageal cancer: Currently on chemotherapy, missed last chemotherapy session was on eighth of this month. Patient will continue to follow oncology as an outpatient #DVT prophylaxis: On Lovenox #CODE STATUS: Full code Attestations Medical Necessity Statement*: Patient needs to be in hosptal for the management of above defined problems Time Spent in Patient Care: Greater than 35 minutes Critical Care Time: 120 Other Attestations: The high probability of a clinically significant, sudden or life threatening deterioration of the patient's [] system(s) required my full and direct attention, intervention and personal management. The critical care time is as shown. This time is in addition to time spent performing any reported procedures but includes the following: [x] Data and vital sign review and interpretation [x] Patient assessment, examination and intervention [x] Documentation [x] Medication orders and management Coding Level of Care Code Acute Medical Laboratory Manager for [facility] Fwd Exam Comprehensive Diagnoses Esophageal cancer C15.9 HTN (hypertension) I10 Pneumonia J18.9
[2021-04-18] MEDS: acetaminophen 325 mg Tablet 650 MG PO (14:31)
--- NOTE | 2021-04-18 17:41 | XRR_ITS ---
PROCEDURE INFORMATION: Exam: XR Chest Exam date and time: 04/18/2021 5:41 PM Age: 70 years old Clinical indication: Shortness of breath; Additional info: SOB TECHNIQUE: Imaging protocol: XR of the chest. Views: 1 view. COMPARISON: CR (CHEST, ) 04/18/2021 4:07 AM FINDINGS: Tubes, catheters and devices: Endotracheal tube tip in place 5.2 cm above the uyen. Right central venous catheter tip approaching the atrial caval junction along with a left-sided Port-A-Cath. Enteric tube tip below the diaphragm over the gastric bubble. Lungs: Patchy bilateral mixed interstitial and airspace infiltrates seen. Pleural spaces: Small right pleural effusion. Heart/Mediastinum: Unremarkable. No cardiomegaly. Bones/joints: Unremarkable. XR/XR chest 1V portable [id number] IMPRESSION: 1. Endotracheal tube tip in place 5.2 cm above the uyen. 2. Right central venous catheter tip approaching the atrial caval junction along with a left-sided Port-A-Cath. 3. Small right pleural effusion. 4. Patchy bilateral mixed interstitial and airspace infiltrates seen. 5. Enteric tube tip below the diaphragm over the gastric bubble.
[2021-04-18] MEDS: hydrocortisone 100 mg/2 mL SDV IVP (17:53)
[2021-04-18] MEDS: hydrocortisone 100 mg/2 mL SDV 50 MG IVP ×2 (17:53→22:52)
[2021-04-18] MEDS: sodium chloride 0.9% 500 ML IV (17:53)
--- NOTE | 2021-04-18 18:19 | PC.NURSE ---
Shift Note: Pt remains intubated and sedated. He was febrile this afternoon, Tylenol helped lower temp. HIs FIO2 has been increased to 70% from 60% this am. Fentanyl and versed still infusing. Propofol stopped per Dr Dimas direction to help maintain his B/P. He is on Levophed, he ws on 4 mcg/min this am, it has needed to be increased to 16mcg/min this afternoon. His B/P held fairly steady until about 1600 ( after the fever broke) then it has been decreasing. Dr Dimas notified, He came to room. NS bolus started. Steriods IVP started. HIs CVL right neck and his Left chest port are patent with good blood return. He had 650ml urine output this shift. Daughter, Nicol, updated via telephone this am and pt's brother updated. Other family calls refered to pt's or daughter. Frequent safety and comfort rounds continue. Orders and/or nursing care completed as indicated. Patient monitored for response to intervention and treatment(s). Education provided includes medications, plan of care and progress. Patient's passenger representative verbalized understand of pt's progress, and plan of care . Will continue to monitor.
[2021-04-18 20:06] LABS: Vancomycin Trough 17.2 ug/mL (10-15)
[2021-04-18] MEDS: levofloxacin-dextrose 5 % 750 MG/150 ML PREMIX 100 MG IV (22:52)
[2021-04-19] VITALS (70 sets, daily range): BP systolic 90–129; BP diastolic 49–70; PULSE 70–111; RESP 19–26; TEMP 36.6–37.4; O2SAT 90–96
[2021-04-19] MEDS: piperacillin-tazobactam 3.375 GM in sodium chloride 0.9% (plus) 50 ML IV (01:33)
[2021-04-19 03:32] LABS: Basophils # 0.1 10^3/uL (0.0-0.1); Basophils % 0.2 %; Eosinophils # 0.1 10^3/uL (0.0-0.8); Eosinophils % 0.3 %; Hematocrit 31.8 % (42.0-52.0); Hemoglobin 10.1 g/dL (11.7-16.6); Lymphocytes # 0.3 10^3/uL (0.8-4.8); Lymphocytes % 1.4 %; Mean Corpuscular HGB Conc 31.8 g/dL (30.0-36.0); Mean Corpuscular Volume 94.4 fl (80-94); Mean Platelet Volume 10.5 fL (7.4-10.4); Monocytes # 0.5 10^3/uL (0.2-0.9); Monocytes % 2.4 %; Neutrophils % 94.7 %; Nucleated Red Blood Cells % 0 %; Platelet Count 143 10^3/cmm (130-400); Red Blood Count 3.37 10^6/uL (4.1-5.3); White Blood Count 21.6 10^3/uL (4.0-10.0)
[2021-04-19] MEDS: levalbuterol 0.63 mg/3 mL Neb INHALATION ×2 (03:37→08:03)
[2021-04-19 03:54] LABS: Alanine Aminotransferase 24 U/L (0-41); Albumin Level 2.3 g/dL (3.5-5.2); Alkaline Phosphatase 103 IU/L (40-130); Anion Gap 16.3 (5-19); Aspartate Amino Transferase 19 U/L (0-40); Blood Urea Nitrogen 45 mg/dL (8-23); Calcium 8.1 mg/dL (8.5-10.5); Carbon Dioxide 24 mmol/L (22-29); Chloride 97 mmol/L (98-107); Globulin 3.7 g/dL (1.3-4.6); Glucose 239 mg/dL (65-115); Osmolality Calculated 297 mOsm/kg (285-295); Potassium 3.3 mmol/L (3.5-5.1); Sodium 134 mmol/L (136-145); Total Bilirubin 0.3 mg/dL (0.15-1.2)
[2021-04-19 05:05] LABS: ABG PH Result 7.32 (7.35-7.45); Alveolar-Arterial Oxygen Gradi 45.2 mmHg (5-10); Arterial Blood Gas Hematocrit 40.8 % (42-52); Base Excess ABG -1.1 mmol/L (-2.0-2.0); Blood Gas Allen Test Pos; Blood Gas Operator Identificat JB; Blood Gas Sample Site Radial, right; Blood Gas Sample Type Arterial; Carboxyhemoglobin 0.8 %THgb (0.4-20.1); HCO3 ABG 25.6 mmol/L (22-26); HGB O2 Sat 95.4 % (95-100); Ionized Calcium Level - ABG 1.3 mmol/L (1.1-1.4); Methemoglobin 0.6 % (0.4-1.5); Oxygen Device VENT; Oxygen Saturation ABG 96.8; PO2 ABG 89.1 mmHg (80.0-100.0); Potassium Level - ABG 3.2 mmol/L (3.5-5.0); Total Hemoglobin 13.3 g/dL (14-18)
[2021-04-19] MEDS: hydrocortisone 100 mg/2 mL SDV 50 MG IVP ×4 (05:19→23:49)
[2021-04-19] MEDS: vancomycin 1,250 MG/250 ML PIGGYBACK 200 MG IV ×2 (07:17→19:40)
[2021-04-19] MEDS: enoxaparin 40 mg/0.4 mL Syringe SUBCUT (07:17)
[2021-04-19] MEDS: pantoprazole 40 mg SDV IVP (08:30)
[2021-04-19] MEDS: guaiFENesin 600 mg Tablet 1200 MG PO (08:31)
--- NOTE | 2021-04-19 09:20 | CT_ITS ---
WS: [id number] CT CHEST ANGIOGRAPHY WITH REFORMATS HISTORY: intubated, elevated dimer TECHNIQUE: Contiguous axial images are obtained through the chest during arterial injection of intrav enous contrast. Images are reconstructed to evaluate the pulmonary arteries. MIP imaging also reviewe d. All CT scans at [facility] use at least one of these dose optimization techniques: automat ed exposure control; mA and/or kV adjustment per patient size (includes targeted exams where dose is matched to clinical indication); or iterative reconstruction. CONTRAST: Visipaque 320; 68 mL IV. DLP: 617.12 mGy.cm COMPARISON: 04/16/2021 Endotracheal tube in good position. Patient also has a nasogastric tube in good position. Interval de velopment of pneumopericardium and pneumomediastinum with a small RIGHT pneumothorax. Subcutaneous em physema extends to the soft tissues over the RIGHT chest. No chest tube. Diffuse bilateral hazy opacifications. Hazy opacifications with peripheral increased areas of consoli dation. Small bilateral layering pleural effusions have slightly increased in size since the prior st . Heart is normal size. Mediastinal and hilar lymphadenopathy is better seen on today's examinatio n with contrast. Bilateral paratracheal lymph nodes measure up to 12 mm. Bilateral hilar lymphadenopa thy measuring up to 17 mm. Adenopathy does appear progressed since the prior study and probably react leelee. Atherosclerosis continues into the suprarenal aorta. No adrenal mass. The visualized liver and gallbl adder and pancreas are negative. No osseous destruction. CT/CT angio chest PE protcl [id number] IMPRESSION: 1. Interval development of pneumomediastinum and pneumopericardium and a small RIGHT pneumothorax since the prior study of 04/16/2021. 2. Endotracheal and nasogastric tubes are in good position. 3. Diffuse bilateral pneumonia with groundglass and more focal consolidations consistent with pneumonia. 4. Indeterminate mediastinal and hilar lymphadenopathy. Lymph nodes have incre ased in size since 04/16/2021 therefore likely reactive. 5. Small bilateral pleural effusions.
--- NOTE | 2021-04-19 10:18 | P.CONIM_ITS ---
Providers/Reason For Consult Consulting Physician/Specialty*: Abhinav Maravilla MD/ Pulmonary Critical Care Reason for Consult*: Bronchoscopy and patient with acute hypoxic respiratory failure secondary to multilobar pneumonia who recently received chemotherapy Requesting Physician: Kayden Padilla MD Attending Physician: Kayden Padilla MD Primary Care Provider: Apolinar Li History of Present Illness History of Present Illness Jatinder Platt is a 70 year old male with PMH esophageal cancer on chemotherapy with FOLFOX/pembrolizumab, last chemo in February 2021, hypertension, CT evidence of emphysema admitted to [facility] on 04/12/2021 for worsening shortness of breath for 1 week associated with fevers 2 weeks back, being managed for pneumonia as outpatient with PCP-initially received azithromycin followed by Levaquin-with new oxygen requirements patient was referred to emergency room. Upon arrival in the emergency room CT chest negative for PE but showed bilateral airspace disease. Procalcitonin was normal and ABG 7.4 8/34/77 and FiO2 40% on BiPAP. He was started on vancomycin and Zosyn. Due to worsening FiO2 requirements he was transferred to ICU-repeat CT chest showed progressed hazy groundglass infiltrates throughout left upper and lower lobes compared to admission CTA. There were small bilateral pleural effusions. Patient was intubated on 04/17/2021 and connected to mechanical ventilator. So far lower extremity Dopplers negative for DVT, CT negative for PE, sputum culture moderate normal maria ines, urine bacterial antigens and Legionella antigen negative. MRSA nares negative. Blood cultures negative so far. Patient is on vancomycin, Zosyn and Levaquin. Pulmonary consult requested for bronchoscopy and obtaining bronchoalveolar lavage Patient seen at bedside Sedated and intubated -CTA reported did not show any PE but showed interval development of pneumomediastinum/pneumopericardium and small right pneumothorax since 04/16/2021 CT. There is diffuse bilateral pneumonia with groundglass and more focal consolidations. -Other labs and imaging reviewed Review of Systems General: Reports: ROS unobtainable due to endotracheal tube, ROS unobtainable due to medical condition and ROS unobtainable due to mental status Medications/Allergies Home Medications Medication Instructions Recorded Confirmed Last Taken Type esomeprazole magnesium 40 mg 40 mg PO QAM 09/24/20 04/12/21 04/12/21 08:00 History capsule,delayed release L.acidophil,salivari-Bifido 1 cap PO QAM 04/12/21 04/12/21 04/12/21 History bifidum-Strep thermoph 175 mg capsule (Acidophilus Probiotic Blend) albuterol sulfate 2.5 mg INHALATION TID PRN 04/12/21 04/12/21 04/12/21 History dextromethorphan-guaifenesin 10 10 ml PO Q4H PRN 04/12/21 04/12/21 Unknown Hist ory mg-100 mg/5 mL oral syrup levofloxacin 500 mg tablet 500 mg PO DAILY 04/12/21 04/12/21 04/12/21 History losartan 100 mg tablet 100 mg PO QAM 04/12/21 04/12/21 04/12/21 08:00 History meloxicam 15 mg tablet 15 mg PO QAM 04/12/21 04/12/21 04/12/21 08:00 History pseudoephedrine-guaifenesin ER 120 1 tab PO Q12H 04/12/21 04/12/21 04/12/21 History mg-1,200 mg tab,extend release 12hr (Mucinex D Maximum Strength) tamsulosin 0.4 mg capsule 0.4 mg PO BEDTIME PRN 04/12/21 04/12/21 04/07/21 History Allergies Allergy/AdvReac Type Severity Reaction Status Date / Time No Known Allergies Allergy Verified 04/12/21 17:10 Current Medications Generic Name Dose Route Start Last Admin Trade Name Freq PRN Reason Stop Dose Admin Acetaminophen 650 mg 04/12/21 17:46 04/18/21 14:31 Acetaminophen 325 Mg Tablet PO 650 mg Q6H PRN Administration Mild/Mod Pain Or Temp >/= 101 Enoxaparin Sodium 40 mg 04/17/21 08:00 04/19/21 07:17 Enoxaparin 40 Mg/0.4 Ml Syringe SUBCUT 40 mg Q24H DELORIS Administration Guaifenesin/Dextromethorphan 10 ml 04/16/21 19:34 04/17/21 09:30 Guaifenesin-Dextromethorphan Udc 10 Ml PO 10 ml Q4H PRN Administration COUGH Hydrocortisone Sodium Succinate 50 mg 04/18/21 17:45 04/19/21 05:19 Hydrocortisone 100 Mg/2 Ml Sdv IVP 50 mg Q6H DELORIS Administration Vancomycin/PEG/NADA/Lysine/Water 1,250 mg in 250 mls @ 200 mls/hr 04/12/21 20:00 04/19/21 09:40 Vancocin IV Infused Q12H DELORIS Infusion Propofol 1,000 mg in 100 mls @ 0 mls/hr 04/17/21 19:15 04/18/21 10:46 Diprivan IV Infused .Q0M DELORIS Titration Protocol Per Protocol Fentanyl 2,500 mcg/ Sodium 250 mls @ 0 mls/hr 04/17/21 19:15 04/18/21 21:00 Chloride IV 100 mcg/hr .Q0M DELORIS 10 mls/hr Administration Protocol Per Protocol Midazolam HCl 100 mg/ Sodium 100 mls @ 0 mls/hr 04/17/21 19:15 04/18/21 17:33 Chloride IV 4 mg/hr .Q0M DELORIS 4 mls/hr Administration Protocol Per Protocol Norepinephrine Bitartrate 4 mg 254 mls @ 0 mls/hr 04/17/21 20:15 04/19/21 05:25 / Dextrose IV 6 mcg/min .Q0M DELORIS 22.86 mls/hr Titration Protocol Per Protocol Levofloxacin/Dextrose 750 mg in 150 mls @ 100 mls/hr 04/18/21 22:15 04/19/21 00:30 Levaquin-D5w IV Infused Q24H DELORIS Infusion Protocol Pantoprazole Sodium 40 mg 04/18/21 09:00 04/19/21 08:30 Pantoprazole 40 Mg Sdv IVP 40 mg DAILY DELORIS Administration Tamsulosin HCl 0.4 mg 04/12/21 21:00 04/18/21 21:54 Tamsulosin 0.4 Mg Capsule PO Not Given BEDTIME DELORIS PFSH Acute PFSH: Medical History Esophageal cancer History of thyroglossal duct cyst Surgical History History of appendectomy Port-A-Cath in place (10/21/20) Family History Denies family history of Anesthesia complication Bleeding disorder Vitals/I&O/Wt Last Vital Signs Temp 98.8 F 04/19/21 07:30 Pulse 93 04/19/21 08:30 Resp 23 H 04/19/21 09:33 BP 101/53 04/19/21 08:30 Pulse Ox 94 04/19/21 09:33 04/18/21 04/19/21 04/19/21 22:59 06:59 14:59 Intake Total 1833.398 / 2529.273 1441.135 / 3970.408 250 / 250 Output Total 650 / 650 1100 / 1750 Balance 1183.398 / 1879.273 341.135 / 2220.408 250 / 250 Weight last 48 hrs Weight 173 lb 12.8 oz Physical Exam Narrative: PHYSICAL EXAM: General: lying in bed, sedated and intubated. HEENT:NCAT, PERRLA, EOMI Neck: Supple Lungs: Reduced breath sounds bilateral lower lobes Heart: s1/s2, RRR Abd: soft, NT, ND, BS + Normoactive Extremities: No edema VENDING MACHINE COLLECTOR: sedated and limited VENDING MACHINE COLLECTOR exam possible. SKIN: no rash Urinary Catheter Management: Mae: Cath Placed During This Visit: yes Reason for Continuing Indwelling Catheter: Accurate Measurement of Urinary Output in Critically Ill Patients Urinary Catheter Date of Insertion: 04/17/21 Urinary Catheter Time of Insertion: 21:57 Data : 04/19/21 02:45 04/19/21 02:45 Other Labs: Radiology Impressions Chest CT 04/16/21 07:54 IMPRESSION: 1. Progressed hazy groundglass infiltrate throughout the LEFT lung. These are progressed in the LEFT upper lobe and LEFT lower lobe compared to previous. 2. Interstitial infiltrates or edema throughout the RIGHT lung stable in appearance with some airspace consolidation RIGHT lower lobe. 3. Small RIGHT greater than LEFT pleural effusions. 4. Chronic emphysematous changes. 5. Enlarged anterior mediastinal and peribronchial lymph nodes. Stable perihilar bronchovascular thickening. Chest X-Ray 04/18/21 17:41 IMPRESSION: 1. Endotracheal tube tip in place 5.2 cm above the uyne. 2. Right central venous catheter tip approaching the atrial caval junction along with a left-sided Port-A-Cath. 3. Small right pleural effusion. 4. Patchy bilateral mixed interstitial and airspace infiltrates seen. 5. Enteric tube tip below the diaphragm over the gastric bubble. Chest CTA 04/19/21 09:20 IMPRESSION: 1. Interval development of pneumomediastinum and pneumopericardium and a small RIGHT pneumothorax since the prior study of 04/16/2021. 2. Endotracheal and nasogastric tubes are in good position. 3. Diffuse bilateral pneumonia with groundglass and more focal consolidations consistent with pneumonia. 4. Indeterminate mediastinal and hilar lymphadenopathy. Lymph nodes have increased in size since 04/16/2021 therefore likely reactive. 5. Small bilateral pleural effusions. Laboratory Results WBC 21.6 10^3/uL (4.0-10.0) H 04/19/21 02:45 RBC 3.37 10^6/uL (4.1-5.3) L 04/19/21 02:45 Hgb 10.1 g/dL (11.7-16.6) L 04/19/21 02:45 Hct 31.8 % (42.0-52.0) L 04/19/21 02:45 MCV 94.4 fl (80-94) H 04/19/21 02:45 MCH 30.0 pg (28.0-34.0) 04/19/21 02:45 MCHC 31.8 g/dL (30.0-36.0) 04/19/21 02:45 RDW 15.0 % (12.1-15.1) 04/19/21 02:45 Plt Count 143 10^3/cmm (130-400) 04/19/21 02:45 MPV 10.5 fL (7.4-10.4) H 04/19/21 02:45 Neut % (Auto) 94.7 % 04/19/21 02:45 Lymph % (Auto) 1.4 % 04/19/21 02:45 Nash % (Auto) 2.4 % 04/19/21 02:45 Eos % (Auto) 0.3 % 04/19/21 02:45 Baso % (Auto) 0.2 % 04/19/21 02:45 Neut # (Auto) 20.40 10^3/uL (1.8-7.7) H 04/19/21 02:45 Lymph # (Auto) 0.3 10^3/uL (0.8-4.8) L 04/19/21 02:45 Nash # (Auto) 0.5 10^3/uL (0.2-0.9) 04/19/21 02:45 Eos # (Auto) 0.1 10^3/uL (0.0-0.8) 04/19/21 02:45 Baso # (Auto) 0.1 10^3/uL (0.0-0.1) 04/19/21 02:45 Nucleated RBC % (auto) 0 % 04/19/21 02:45 Nucleated RBCs # 0.0 /100WBC 04/19/21 02:45 D-Dimer >= 20.00 ug/mIFEU (0-0.59) H 04/18/21 04:35 Specimen Type Arterial 04/19/21 04:48 Sample Site Radial, right 04/19/21 04:48 ABG pH 7.32 (7.35-7.45) L 04/19/21 04:48 ABG pCO2 50.0 mmHg (35-45) H 04/19/21 04:48 ABG pO2 89.1 mmHg (80.0-100.0) 04/19/21 04:48 ABG HCO3 25.6 mmol/L (22-26) 04/19/21 04:48 ABG O2 Saturation 96.8 04/19/21 04:48 ABG Base Excess -1.1 mmol/L (-2.0-2.0) 04/19/21 04:48 Jorge Test Pos 04/19/21 04:48 A-a O2 Gradient 45.2 mmHg (5-10) H 04/19/21 04:48 Hematocrit 40.8 % (42-52) L 04/19/21 04:48 Hgb O2 Saturation 95.4 % (95-100) 04/19/21 04:48 Carboxyhemoglobin 0.8 %THgb (0.4-20.1) 04/19/21 04:48 Methemoglobin 0.6 % (0.4-1.5) 04/19/21 04:48 Total Hemoglobin 13.3 g/dL (14-18) L 04/19/21 04:48 Sodium 136.0 mmol/L (131-143) 04/19/21 04:48 Potassium 3.2 mmol/L (3.5-5.0) L 04/19/21 04:48 Glucose 217.0 mg/dL (70-115) H 04/19/21 04:48 Ionized Calcium 1.3 mmol/L (1.1-1.4) 04/19/21 04:48 O2 Delivery Device Vent 04/19/21 04:48 O2 Liters/Min 15.0 % 04/16/21 01:00 FiO2 70.0 % 04/19/21 04:48 Tidal Volume 0.50 04/19/21 04:48 PEEP 8.0 cmH20 04/19/21 04:48 Vice Provost ID Pramod 04/19/21 04:48 Sodium 134 mmol/L (136-145) L 04/19/21 02:45 Potassium 3.3 mmol/L (3.5-5.1) L 04/19/21 02:45 Chloride 97 mmol/L (98-107) L 04/19/21 02:45 Carbon Dioxide 24 mmol/L (22-29) 04/19/21 02:45 Anion Gap 16.3 (5-19) 04/19/21 02:45 BUN 45 mg/dL (8-23) H 04/19/21 02:45 Creatinine 1.2 mg/dL (0.7-1.2) 04/19/21 02:45 GFR Calculation Not Reportable 04/19/21 02:45 Glucose 239 mg/dL (65-115) H 04/19/21 02:45 POC Glucose 106 mg/dL (70-110) 04/16/21 00:05 Calculated Osmolality 297 mOsm/kg (285-295) H 04/19/21 02:45 Lactic Acid 1.1 mmol/L (0.5-2.2) 04/12/21 16:50 Calcium 8.1 mg/dL (8.5-10.5) L 04/19/21 02:45 Magnesium 1.8 mg/dL (1.7-2.3) 04/13/21 04:15 Iron 26 ug/dL (59-158) L 04/19/21 02:45 TIBC 80 mcg/dl 04/19/21 02:45 % Saturation 32.5 % (20-50) 04/19/21 02:45 Unsat Iron Binding 54 ug/dL (112-347) L 04/19/21 02:45 Total Bilirubin 0.3 mg/dL (0.15-1.2) 04/19/21 02:45 AST 19 U/L (0-40) 04/19/21 02:45 ALT 24 U/L (0-41) 04/19/21 02:45 Alkaline Phosphatase 103 IU/L (40-130) 04/19/21 02:45 Lactate Dehydrogenase 391 U/L (135-225) H 04/19/21 02:45 Troponin T Gen 5 ng/L 46 ng/L (0-15) H 04/16/21 13:00 C-Reactive Protein 116.2 mg/L (0.0-4.9) H 04/12/21 16:50 NT-Pro-B Natriuret Pep 677 pg/mL (0-125) H 04/16/21 00:52 NT-Pro-B Natriuret Pep Cancelled 04/16/21 00:52 Total Protein 6.0 g/dL (6.6-8.7) L 04/19/21 02:45 Albumin 2.3 g/dL (3.5-5.2) L 04/19/21 02:45 Globulin 3.7 g/dL (1.3-4.6) 04/19/21 02:45 Procalcitonin 3.19 ng/mL (0-0.5) H 04/19/21 02:45 TSH 0.77 uIU/mL (0.27-4.20) 04/19/21 02:45 Nasal Influ A H1 2009 PCR Not detected (NOT DETECT) 04/15/21 18:00 Vancomycin Trough 17.2 ug/mL (10-15) H 04/18/21 18:45 Adenovirus (PCR) Not detected (NOT DETECT) 04/15/21 18:00 C. pneumoniae DNA (PCR) Not detected (NOT DETECT) 04/15/21 18:00 Coronavirus 229E (PCR) Not detected (NOT DETECT) 04/17/21 14:20 Human Metapneumovir PCR Not detected (NOT DETECT) 04/15/21 18:00 Influenza A (H1) PCR Not detected (NOT DETECT) 04/15/21 18:00 Influenza A (H3) PCR Not detected (NOT DETECT) 04/15/21 18:00 Influenza Type A Ag Negative (Negative) 04/14/21 13:00 Influenza Type A (PCR) Not detected (NOT DETECT) 04/15/21 18:00 Influenza Type B Ag Negative (Negative) 04/14/21 13:00 Influenza Type B (PCR) Not detected (NOT DETECT) 04/15/21 18:00 M. pneumoniae (PCR) Not detected (NOT DETECT) 04/15/21 18:00 Parainfluenza 1 (PCR) Not detected (NOT DETECT) 04/15/21 18:00 Parainfluenza 2 (PCR) Not detected (NOT DETECT) 04/15/21 18:00 Parainfluenza 3 (PCR) Not detected (NOT DETECT) 04/15/21 18:00 Parainfluenza 4 (PCR) Not detected (NOT DETECT) 04/15/21 18:00 RSV Type A (PCR) Not detected (NOT DETECT) 04/15/21 18:00 RSV Type B (PCR) Not detected (NOT DETECT) 04/15/21 18:00 Entero/Rhino (PCR) Not detected (NOT DETECT) 04/15/21 18:00 SARS-CoV-2 (PCR) Not detected (NOT DETECT) 04/17/21 14:20 Micro: Microbiology 04/18/21 18:47 Blood Culture - Preliminary Blood SPECIMEN COLLECTED 04/18/21 18:45 Blood Culture - Preliminary Blood SPECIMEN COLLECTED 04/13/21 04:20 Blood Culture - Final Blood NO GROWTH AFTER 5 DAYS 04/13/21 04:15 Blood Culture - Final Blood NO GROWTH AFTER 5 DAYS A&P Assessment and plan (1) Acute respiratory failure with hypoxia: Status: Acute (2) Pneumonia: Status: Acute (3) Esophageal cancer: Status: Acute (4) Immunosuppressed due to chemotherapy: Status: Acute (5) PCP (pneumocystis jiroveci pneumonia): Status: Acute (6) Emphysema/COPD: Status: Acute (7) Acquired pneumomediastinum: Status: Acute (8) Pneumopericardium: Status: Acute Plan #Acute hypoxic respiratory failure in patient likely secondary to pneumonia and patient is on chemotherapy for esophageal cancer #Suspect PCP pneumonia given his immunosuppression #Septic shock on Levophed -Currently intubated 04/17/2021-on CMV 500/22/8/70%; -ABG 7.3 2/50/89/25/96% -Sedated with fentanyl 125 MCG/hour, Versed 6 mg/hour-recommended to taper down Versed and start on propofol -Patient currently on pressors Levophed 6 MCG -Discontinue hydrocortisone 50 every 6 HR (equivalent prednisone 50 mg)-start prednisone 40 mg p.o. twice daily for 5 days followed by 40 mg daily for 5 days and 20 mg for 11 days -CTA 04/19/2021 showed interval development of pneumomediastinum/pneumopericardium and subcu emphysema compared to CT 3 06/03/2021-bilateral dense consolidations and bilateral small pleural effusions -Recommended to reduce PEEP to 5 to prevent worsening of pneumomediastinum -So far lower extremity Dopplers negative for DVT, CT negative for PE, sputum culture moderate normal maria ines, urine bacterial antigens and Legionella antigen negative. MRSA nares negative. Blood cultures negative so far, procalcitonin increased 3.19 in the absence of renal failure. -Patient was on vancomycin, Zosyn and Levaquin-change Zosyn to imipenem today -I did bronchoscopy today-mild erythema noted in bilateral lower lobes-2 BAL samples from left lower lobe and sent for mycobacterial/bacterial/fungal cu ltures-PCP PCR, galactomannan index-we will follow up results -Also beta D glucan levels were sent and currently pending -Given his history of chemotherapy and related immunosuppression-recommended to start on Bactrim and treat PCP pneumonia until PCR results are available -Try to keep net negative to even fluid balance while monitoring renal functions -We will continue to monitor clinically, taper down FiO2, tapered on pressors and adjust antibiotics based on cultures -Prognosis guarded -Limited resuscitation -Next of kin updated -DVT prophylaxis Lovenox 40 mg daily -GI prophylaxis PPI Recommendations conveyed to hospitalist, RN, RT taking care of the patient Consult Attestations Medical Necessity Statement: Acute hypoxic respiratory failure likely secondary to HAP/PCP pneumonia and patient with significant immunosuppression secondary to chemotherapy for colon cancer-currently requiring mechanical ventilator for respiratory support, pressor support for septic shock, need close ICU monitoring Time Spent in Patient Care: Greater than 35 minutes (>than 50% of time spent in counselling and/or direct pt care on unit) . Critical Care Time: The high probability of a clinically significant, sudden or life threatening deterioration of the patient's [respiratory, infectious) system(s) required my full and direct attention, intervention and personal management. The critical care time is as shown. This time is in addition to time spent performing any reported procedures but includes the following: [x] Data and vital sign review and interpretation [x] Patient assessment, examination and intervention [x] Documentation [x] Medication orders and management Critical Care Time (min): 65 Coding Level of Care Code New Pt Acute Hide Inspector And Sorter for Chg Fwd Patient Type New History Comprehensive Exam Comprehensive Medical Decision Making High Complexity Diagnoses Acute respiratory failure with hypoxia J96.01 Pneumonia J18.9 Esophageal cancer C15.9 Immunosuppressed due to chemotherapy D84.821; T45.1X5A; Z79.899 PCP (pneumocystis jiroveci pneumonia) B59 Emphysema/COPD J43.9 Acquired pneumomediastinum J98.2 Pneumopericardium I31.9 Time Spent (min) 65
--- NOTE | 2021-04-19 10:20 | PC.NURSE ---
Rounding with Dr. Padilla- Tube feeding stopped at 1015 per orders in anticipation of bronchoscopy.
[2021-04-19 10:39] LABS: Procalcitonin 3.19 ng/mL (0-0.5); Thyroid Stimulating Hormone 0.77 uIU/mL (0.27-4.20)
--- NOTE | 2021-04-19 10:46 | PC.SOCIAL ---
IMM not updated IMM not updated as patient is intubated at this time and not expected to dc in the next 24-48 hours.
[2021-04-19 10:50] LABS: Iron 26 ug/dL (59-158); Lactate Dehydrogenase 391 U/L (135-225); Percent Saturation 32.5 % (20-50); Total Iron Binding Capacity 80 mcg/dl; Unsaturated Iron Binding 54 ug/dL (112-347)
--- NOTE | 2021-04-19 11:09 | PC.CHAP ---
Pastoral Care Encounter/Spiritual Assessment Type of Contact [] Declined brake holder visit [] Patient/Family/Request visit [] Outpatient visit [] Follow-up visit [] Physician referral [] Code/Alert [x] Routine visit [] Staff referral [] Actively dying [] Patient sleeping [] Family support [] [] Out of room [] Palliative care [] [] Receiving care in room [] Pre-surgical visit [] Trauma [] Long length of stay [x] ICU visit [x] Other: vent Relational/Emotional Strength [] Patient feels connected with others/family/visitors/staff [] Distress [] Loneliness/isolation [] Abandonment Spirituality of Patient [] Person of [place] [] Attends Church of their [place] [] Believes in Prayer [] Reads Bible or Islam materials [] There are Spiritual issues to be addressed Bean Snapper Interventions [x] Prayer [] Active listening [] Non-anxious presence [] Spiritual/emotional support [] Crisis/trauma care [] Spiritual counseling [] Bereavement support [] Provided bereavement packet [] Provided Bible/devotional materials [] Provided toy/stuffed animal, coloring book to patient or family member [] Provided Communion [] Anointing/[place] [] Salvation [x] Completed spiritual assessment [] Other: Impact on Illness or Injury [] Angry [] Fearful [] Anxious [] Often cries [] Exhaustion [] Unable to work [] Unable to attend mormon [] Unable to walk/stand [] Unable to read [] Unable to drive [] Unable to eat/drink [] Unable to sleep [] Unable to be with family [] Patient intubated [] Other: Summary Time spent with patient
[2021-04-19] MEDS: iodixanol 320 mg/mL 100mL Btl IV (11:46)
--- NOTE | 2021-04-19 12:46 | PC.NUTR ---
Recommend increasing goal rate of Jevity 1.2 from 30 ml/hr to 55 ml/hr with 100 ml flushes Q4H. This will provided 78% Pt's estimated calorie needs, 82% Pt's estimated fluid needs, and 84% Pt's estimated protein needs. Details in RD assessment.
[2021-04-19] MEDS: sulfamethoxazole-trimeth inj 480 MG in dextrose 5 % 500 ML 500 MG IV ×2 (13:37→22:15)
[2021-04-19] MEDS: propofol 1,000 MG/100 ML INJ 4.92 MG IV (14:32)
[2021-04-19] MEDS: ipratropium-albuterol 3 mL Neb INHALATION (14:44)
--- NOTE | 2021-04-19 14:49 | PM.ACPR ---
Procedure/Consent Time out: Time Out Performed: Yes Consent: Additional Consent Information: Yes. Obtained from next of kin . Placed in chart Procedure Narrative: Procedure: Flexible bronchoscopy with airway inspection, airway clearance of secretions and obtaining bronchoalveolar lavage sample Pre-Operative Diagnosis: Pneumonia Post-Operative Diagnosis: Same Indication: Persistent leukocytosis with worsening bilateral consolidations-requiring mechanical ventilation in patient with significant immunosuppression from chemotherapy-suspect PCP pneumonia/fungal pneumonia Anesthesia: Patient already on fentanyl 125 MCG/hour and Versed 6 mg/hour. Drips adjusted to achieve adequate sedation Pre-procedure Evaluation: Patient was evaluated clinically and ancillary testing reviewed. The risk of having active MTB infection is very low in my clinical judgement. ASA: 4 Malampati score: unable to evaluate due to presence of endotracheal tube Consent: Consents were obtained from [facility] and placed in the chart Procedure Details: Time out was performed by the procedure team and nursing staff. Vent support maintained on Fio2 100. The bronchoscope was introduced through the ETT. A bronchoscopic airway exam was performed to evaluate the visible tracheobronchial tree to the segmental level. Summary of Significant Findings: -Bronchoscope passed through ET tube, 1 ml 1% lidocaine instilled into the trachea, 1 mL 1% lidocaine both right and left main bronchus. Distal trachea and main uyen visualized which were sharp and normal. Then the scope was passed through the right bronchial tree was assessed to include the right mainstem bronchus, RBI, and RUL/RML/RLL bronchi to the segmental and subsegmental levels. No active bleeding noted. Mucosa appeared erythematous. Scant thick mucus secretions noted in proximal right bronchus intermedius which was suctioned right away. Then the scope was left bronchial tree was assessed to include the left mainstem bronchus, IDANIA, Lingula, and LLL bronchi to the segmental and subsegmental level. No active bleeding noted. Mucosa appeared erythematous. Very few thick secretions noted in left main bronchus which were suctioned right away. 20 cc normal saline instilled and obtained 15 cc slightly turbid fluid with mucus flecks as bronchoalveolar lavage from left lower lobe the bronchoscope was then removed and the procedure terminated. Estimated Blood Loss: None Specimens: Bronchoalveolar lavage was taken from left lower lobe and sent for microbiology cultures/fungal cultures/mycobacterial culture/pneumocystis PCR qualitative and quantitative/galactomannan antigen Complications:None; patient tolerated the procedure well. Disposition: Patient remains critically ill, intubated and stays in ICU Abhinav Maravilla MD Pulmonary critical Care Medicine [facility] Acute Procedures Epistaxis Control: Time out performed: Yes
--- NOTE | 2021-04-19 16:18 | P.PN_ITS ---
Vitals/I&O/Wt Last Vital Signs Temp 98.8 F 04/19/21 12:00 Pulse 104 H 04/19/21 16:00 Resp 22 H 04/19/21 14:30 BP 106/56 04/19/21 16:00 Pulse Ox 93 04/19/21 16:00 04/19/21 04/19/21 04/19/21 06:59 14:59 22:59 Intake Total 1441.135 / 3970.408 808.282 / 808.282 Output Total 1100 / 1750 400 / 400 Balance 341.135 / 2220.408 408.282 / 408.282 Weight last 48 hrs Weight 78.834 kg Physical Exam Narrative: General: Intubated, sedated on ventilator HEENT: PERRLA, pupils bilaterally equal and reactive Chest: Bronchial breath sounds, coarse crackles all over the lung, equal good air entry bilaterally CVS: S1-S2 regular, tachycardia, no gallops, no rubs Abdomen: Soft, nontender, no organomegaly, bowel sounds present Neuro: No focal deficits, no facial deformity, AO x3, power 5/5 in all limbs Urinary Catheter Management: Mae: Cath Placed During This Visit: yes Reason for Continuing Indwelling Catheter: Accurate Measurement of Urinary Output in Critically Ill Patients Urinary Catheter Date of Insertion: 04/17/21 Urinary Catheter Time of Insertion: 21:57 Data : 04/19/21 02:45 04/19/21 02:45 Micro: Microbiology 04/19/21 04:40 Bacterial Antigens - Final Urine Kidney 04/19/21 09:40 Legionella Urinary Antigen - Final Urine Catheterized 04/18/21 18:47 Blood Culture - Preliminary Blood SPECIMEN COLLECTED 04/18/21 18:45 Blood Culture - Preliminary Blood SPECIMEN COLLECTED A&P Assessment and plan (1) Acute respiratory failure with hypoxia: Status: Acute (2) Pneumonia: Status: Acute (3) Pneumopericardium: Status: Acute (4) Acquired pneumomediastinum: Status: Acute (5) Emphysema/COPD: Status: Acute (6) Immunosuppressed due to chemotherapy: Status: Acute (7) Esophageal cancer: Status: Acute (8) HTN (hypertension): Status: Acute Plan 70 year old male with past medical history of esophageal cancer on chemotherapy with FOLFOX/pembrolizumab, Last chemo cycle done a month back, hypertension, came in with chief complaint of worsening shortness of breath going on for the last 2 weeks. Assessment #Septic shock secondary to pneumonia #Acute hypoxic respiratory failure secondary to pneumonia: #Pneumomediastinum/pneumopericardium Blood culture, sputum culture, urine Legionella, bacterial antigen so far negative. Respiratory panel and COVID-19 PCR negative. Check MRSA swab, CTA chest to rule out PE, evaluation of pneumonia further. Check fungi tell, PCT PCR, LDH. We will consult pulmonology for possible bronchoscopy. Patient currently on vancomycin and Zosyn. Started on Levaquin on 04/18. Continue with vancomycin. Switch Zosyn to imipenem. Continue with Levaquin. Given the CT results there is a concern for atypical pneumonia versus fungal pneumonia versus PCP. We will start patient on Bactrim. Continue mechanical ventilation. Weaning down settings keeping saturation over 88%. DuoNebs every 6 hour, budesonide twice daily. Continue Solu-Medrol 50 every 6 hourly for now. Will wean down gradually. Creatinine under pressure 65. Wean down Levophed accordingly. Cheetah evaluation showed no fluid responsiveness. Start on albumin every 8 hourly for 1 day. # ELIZABETH ON CKD likely 2/2 To ATN 2/2 Ac Hypotension Currently stable. Follow BMP. Medical reconciliation done for nephrotoxic drugs. Monitor BMP electrolytes daily. #Hypertension: Was on losartan #History of esophageal cancer: Currently on chemotherapy, missed last chemotherapy session was on eighth of this month. Patient will continue to follow oncology as an outpatient Lovenox for DVT prophylaxis. CODE STATUS: Discussed in detail with patient's and daughter over the phone. They state he would have not wanted any kind of heroic measures and he was also hesitant about mechanical ventilation prior to be put on a ventilator. He would not want any kind of chest compressions. CODE STATUS changed to limited resuscitation. Protonix for PUD prophylaxis. Restart on tube feeds post bronchoscopy. Guarded prognosis Attestations Medical Necessity Statement*: Requires further hospitalization for management of septic shock, acute respiratory failure secondary to pneumonia, pneumomediastinum in setting of immunocompromise status Critical Care Time: The high probability of a clinically significant, sudden or life threatening deterioration of the patient's [pulmonary, cardiac, renal system(s) required my full and direct attention, intervention and personal management. The critical care time is as shown. This time is in addition to time spent performing any reported procedures but includes the following: [x] Data and vital sign review and interpretation [x] Patient assessment, examination and intervention [x] Documentation [x] Medication orders and management Critical Care Time (min): 90 Coding Level of Care Code Acute Under Trimmer for g Fwd Diagnoses Esophageal cancer C15.9 HTN (hypertension) I10 Pneumonia J18.9 Acute respiratory failure with hypoxia J96.01 Immunosuppressed due to chemotherapy D84.821; T45.1X5A; Z79.899 Emphysema/COPD J43.9 Acquired pneumomediastinum J98.2 Pneumopericardium I31.9
--- NOTE | 2021-04-19 16:36 | PC.NURSE ---
Bronchoscopy performed by Dr. Maravilla approximately 1400. Clara RT and myself at bedside. Broncho lavage samples taken. Uneventful procedure. Dr. Maravilla ordered propofol be started at a low dose and to titrate down versed per patient vent compliance.
--- NOTE | 2021-04-19 17:41 | PC.NURSE ---
Tube feeding restarted at 1530. 30ml/hr [id number] flushes.
[2021-04-19 19:24] LABS: Apprearance, Bronch Wash Clear (CLEAR); Color, Bronc Wash Colorless
[2021-04-19] MEDS: budesonide 0.5 mg/2 mL Neb INHALATION (19:57)
[2021-04-19] MEDS: levofloxacin-dextrose 5 % 750 MG/150 ML PREMIX 100 MG IV (22:16)
[2021-04-20] VITALS (87 sets, daily range): BP systolic 77–147; BP diastolic 43–68; PULSE 88–151; RESP 19–26; TEMP 37.1–38.4; O2SAT 85–94
[2021-04-20] MEDS: ipratropium-albuterol 3 mL Neb INHALATION ×3 (02:33→14:03)
[2021-04-20] MEDS: propofol 1,000 MG/100 ML INJ 4.92 MG IV (03:52)
[2021-04-20 04:28] LABS: ABG PH Result 7.34 (7.35-7.45); Arterial Blood Gas Hematocrit 30.3 % (42-52); Base Excess ABG -0.1 mmol/L (-2.0-2.0); Blood Gas Sample Site Brachial, right; Blood Gas Sample Type Arterial; Oxygen Device VENT; PO2 ABG 68.5 mmHg (80.0-100.0)
[2021-04-20] MEDS: sulfamethoxazole-trimeth inj 480 MG in dextrose 5 % 500 ML 500 MG IV ×3 (05:35→22:34)
[2021-04-20] MEDS: hydrocortisone 100 mg/2 mL SDV 50 MG IVP (05:35)
[2021-04-20 05:43] LABS: Basophils % 0.2 %; Eosinophils # 0.2 10^3/uL (0.0-0.8); Hemoglobin 9.6 g/dL (11.7-16.6); Lymphocytes # 0.4 10^3/uL (0.8-4.8); Lymphocytes % 1.9 %; Mean Corpuscular Hemoglobin 29.9 pg (28.0-34.0); Mean Corpuscular Volume 93.5 fl (80-94); Mean Platelet Volume 12.3 fL (7.4-10.4); Monocytes # 0.7 10^3/uL (0.2-0.9); Monocytes % 3.3 %; Neutrophils # 18.19 10^3/uL (1.8-7.7); Neutrophils % 92.8 %; Nucleated Red Blood Cells % 0 %; Platelet Count 49 10^3/cmm (130-400); Red Blood Count 3.21 10^6/uL (4.1-5.3); Red Cell Distribution Width 15.3 % (12.1-15.1); White Blood Count 19.6 10^3/uL (4.0-10.0)
[2021-04-20 06:01] LABS: Alanine Aminotransferase 33 U/L (0-41); Albumin Level 2.2 g/dL (3.5-5.2); Alkaline Phosphatase 110 IU/L (40-130); Anion Gap 13.1 (5-19); Aspartate Amino Transferase 44 U/L (0-40); Blood Urea Nitrogen 49 mg/dL (8-23); Calcium 9.1 mg/dL (8.5-10.5); Carbon Dioxide 25 mmol/L (22-29); Chloride 99 mmol/L (98-107); Glucose 175 mg/dL (65-115); Osmolality Calculated 295 mOsm/kg (285-295); Potassium 3.1 mmol/L (3.5-5.1); Sodium 134 mmol/L (136-145); Total Bilirubin 0.2 mg/dL (0.15-1.2); Total Protein 6.2 g/dL (6.6-8.7)
[2021-04-20 06:02] LABS: Cholesterol 74 mg/dL (0-200); HDL Cholesterol 20 mg/dL (60-100); LDL Cholesterol Calculated 37 mg/dL (50-129); Triglycerides 86 mg/dL (0-150); VLDL Cholestrol Calculation 17 mg/dL (0-30)
[2021-04-20 06:34] LABS: Estmated Average Glucose 126
[2021-04-20] MEDS: budesonide 0.5 mg/2 mL Neb INHALATION (08:11)
[2021-04-20] MEDS: vancomycin 1,250 MG/250 ML PIGGYBACK 200 MG IV ×2 (08:14→21:07)
[2021-04-20] MEDS: pantoprazole 40 mg SDV IVP (08:14)
[2021-04-20] MEDS: enoxaparin 40 mg/0.4 mL Syringe SUBCUT (08:15)
[2021-04-20 08:48] LABS: Total Cells Counted Bronch 300
[2021-04-20 08:52] LABS: Other Cells, Bronch Wash 0 %; PATH Referral Yes
--- NOTE | 2021-04-20 09:26 | PC.NURSE ---
Rounding with Dr. Maravilla. Dr. briceño versed to be titrated down to 2ml/hr from 4. Dr. Maravilla titrated Fio2 to 80.
--- NOTE | 2021-04-20 10:00 | XR_ITS ---
WS: [id number] PORTABLE CHEST HISTORY: intubated COMPARISON: 04/18/2021 Endotracheal tube and nasogastric tubes remain in good position. There is a LEFT central line with ti p in the distal SVC at the atrial junction. There is a RIGHT central line with tip terminating in the RIGHT heart. Similar to the prior study. Diffuse coarse interstitial opacifications throughout both lungs with decreased lung volumes. No sign ificant improvement. Pneumomediastinum and pneumopericardium are not evident radiographically as was seen on a recent CT evaluation. There is a small amount of subcutaneous emphysema over the RIGHT ches t wall. There is a very tiny RIGHT apical pneumothorax. Cardiac size: Mildly enlarged cardiac silhouette. Mediastinum/Aorta: Normal mediastinum. No osseous abnormality seen. XR/XR chest 1V portable [id number] IMPRESSION: 1. Nasogastric and endotracheal tubes remain in good position. 2. There is a very tiny RIGHT apical pneumothorax. 3. Recently described pneumomediastinum and pneumopericardium are not evident radiographically. May have resolved in the interval. 4. Diffuse bilateral coarse opacifications. 5. Bilateral central lines are reidentified. The tip of the RIGHT central line does extend into the RIGHT atrium.
[2021-04-20] MEDS: lidocaine 1% 5 ML in potassium chloride premix 100 ML 50 ML IV (10:18)
[2021-04-20] MEDS: norepinephrine 8 MG in dextrose 5 % 500 ML 22.86 MG IV (10:58)
--- NOTE | 2021-04-20 11:09 | PC.NURSE ---
Dr. Padilla submitted orders for meds giving this nurse instruction to give albumin 25mg now and the second 25mg ordered at 1700 today totally 50mg of Albumin. Lasix is to be given after second dose of albumin. 20 meq potassium ordered by Dr. Maravilla, Dr. Padilla ordered an additional 80meq of potassium to equal a total of 100meq of potassium to be infused today.
[2021-04-20] MEDS: lidocaine 1% 5 ML in potassium chloride premix 100 ML 25 ML IV ×2 (12:14→16:17)
--- NOTE | 2021-04-20 13:04 | PC.NURSE ---
Tube feed residual 320. Tube feed placed on hold.
--- NOTE | 2021-04-20 14:33 | P.PN_ITS ---
Subjective Subjective: Patient was seen and examined,continue to be on mechanical ventilation.VC/AC Mode : Tv : 500, PEEP :8 , FIO2 :60 % R/R :20 Am ABG : Ph : 7.28 ,PCO2: 58, PO2: 118 , FIO2 : 80 % BUN/SCR has gone today : 42/1.4 , D-Dimer is significantly high today : >20, my clinical suspicion for P/E is low,likley 2/2 to sepsis, Can consider giving one dose of lovenox therapeutic , CTA chest and Doppler vein l/e done earlier has been negative,malignancy is a concern for possible P/E. Will hold on repeat CTA chest as kidney function has slightly worsened.Levophed requirement went up during the day initially , but later is slowly coming down.Xray chest has failed to show any PTX. Patient will likely need lasix in am if kidney function is acceptable.To deal with fluid status. His other vitals and labs have been reviewed. Medications: Medication Review Details: Generic Name Dose Route Start Last Admin Trade Name Petrosq PRN Reason Stop Dose Admin Albuterol/Ipratrop ium 3 ml 04/12/21 21:00 04/13/21 14:44 Ipratropium-Albu terol 3 Ml Neb INHALATION 3 ml Q6H.RESPIRATORY S CH Administration Enoxaparin Sodium 40 mg 04/12/21 18:30 04/12/21 18:43 Enoxaparin 40 Mg /0.4 Ml Syringe SUBCUT 40 mg Q24H DELORIS Administration Piperacillin Sod/T azobactam 50 mls @ 12.5 mls /hr 04/12/21 18:00 04/13/21 13:00 Sod 3.375 gm/ So dium Chloride IV Infused Q8H DELORIS Infusion Protocol Vancomycin/PEG/NAD A/Lysine/Water 1,250 mg in 250 m ls @ 200 mls/hr 04/12/21 20:00 04/13/21 08:51 Vancocin IV Infused Q12H DELORIS Infusion Losartan Potassium 100 mg 04/13/21 06:00 04/13/21 07:32 Losartan 50 Mg T ablet PO 100 mg QAM DELORIS Administration Pantoprazole Sodiu m 40 mg 04/13/21 09:00 04/13/21 07:[address] 40 Mg Tablet PO 40 mg DAILY DELORIS Administration Tamsulosin HCl 0.4 mg 04/12/21 21:00 04/12/21 21:38 Tamsulosin 0.4 M g Capsule PO 0.4 mg BEDTIME DELORIS Administration Vitals/I&O/Wt Last Vital Signs Temp 99.4 F 04/20/21 09:15 Pulse 102 H 04/20/21 14:03 Resp 22 H 04/20/21 14:09 BP 103/53 04/20/21 12:30 Pulse Ox 90 04/20/21 14:09 04/19/21 04/20/21 04/20/21 22:59 06:59 14:59 Intake Total 1252.774 / 2061.056 906.928 / 2967.984 1803.611 / 1803.611 Output Total 650 / 1050 1100 / 2150 400 / 400 Balance 602.774 / 1011.056 -193.072 / 201.369 6544.611 / 1403.611 Weight last 48 hrs Weight 180 lb Weight 173 lb 12.8 oz Physical Exam Narrative: PHYSICAL EXAM: General: lying in bed, sedated and intubated. HEENT:NCAT, PERRLA, EOMI Neck: Supple Lungs: Reduced breath sounds bilateral lower lobes Heart: s1/s2, RRR Abd: soft, NT, ND, BS + Normoactive Extremities: No edema JACKER FEEDER: sedated and limited JACKER FEEDER exam possible. SKIN: no rash Urinary Catheter Management: Mae: Cath Placed During This Visit: yes Reason for Continuing Indwelling Catheter: Accurate Measurement of Urinary Outp ut in Critically Ill Patients Urinary Catheter Date of Insertion: 04/17/21 Urinary Catheter Time of Insertion: 21:57 Data : 04/20/21 05:06 04/20/21 05:06 Other Labs: Radiology Impressions Chest CT 04/16/21 07:54 IMPRESSION: 1. Progressed hazy groundglass infiltrate throughout the LEFT lung. These are progressed in the LEFT upper lobe and LEFT lower lobe compared to previous. 2. Interstitial infiltrates or edema throughout the RIGHT lung stable in appear ance with some airspace consolidation RIGHT lower lobe. 3. Small RIGHT greater than LEFT pleural effusions. 4. Chronic emphysematous changes. 5. Enlarged anterior mediastinal and peribronchial lymph nodes. Stable perihilar bronchovascular thickening. Chest CTA 04/19/21 09:20 IMPRESSION: 1. Interval development of pneumomediastinum and pneumopericardium and a small RIGHT pneumothorax since the prior study of 04/16/2021. 2. Endotracheal and nasogastric tubes are in good position. 3. Diffuse bilateral pneumonia with groundglass and more focal consolidations consistent with pneumonia. 4. Indeterminate mediastinal and hilar lymphadenopathy. Lymph nodes have in creased in size since 04/16/2021 therefore likely reactive. 5. Small bilateral pleural effusions. Chest X-Ray 04/20/21 10:00 IMPRESSION: 1. Nasogastric and endotracheal tubes remain in good position. 2. There is a very tiny RIGHT apical pneumothorax. 3. Recently described pneumomediastinum and pneumopericardium are not evident radiographically. May have resolved in the interval. 4. Diffuse bilateral coarse opacifications. 5. Bilateral central lines are reidentified. The tip of the RIGHT central line does extend into the RIGHT atrium. Laboratory Results WBC 19.6 10^3/uL (4.0-10.0) H 04/20/21 05:06 RBC 3.21 10^6/uL (4.1-5.3) L 04/20/21 05:06 Hgb 9.6 g/dL (11.7-16.6) L 04/20/21 05:06 Hct 30.0 % (42.0-52.0) L 04/20/21 05:06 MCV 93.5 fl (80-94) 04/20/21 05:06 MCH 29.9 pg (28.0-34.0) 04/20/21 05:06 MCHC 32.0 g/dL (30.0-36.0) 04/20/21 05:06 RDW 15.3 % (12.1-15.1) H 04/20/21 05:06 Plt Count 49 10^3/cmm (130-400) L D 04/20/21 05:06 MPV 12.3 fL (7.4-10.4) H 04/20/21 05:06 Neut % (Auto) 92.8 % 04/20/21 05:06 Lymph % (Auto) 1.9 % 04/20/21 05:06 [place] % (Auto) 3.3 % 04/20/21 05:06 Eos % (Auto) 1.0 % 04/20/21 05:06 Baso % (Auto) 0.2 % 04/20/21 05:06 Neut # (Auto) 18.19 10^3/uL (1.8-7.7) H 04/20/21 05:06 Lymph # (Auto) 0.4 10^3/uL (0.8-4.8) L 04/20/21 05:06 [place] # (Auto) 0.7 10^3/uL (0.2-0.9) 04/20/21 05:06 Eos # (Auto) 0.2 10^3/uL (0.0-0.8) 04/20/21 05:06 Baso # (Auto) 0.0 10^3/uL (0.0-0.1) 04/20/21 05:06 Nucleated RBC % (auto) 0 % 04/20/21 05:06 Nucleated RBCs # 0.0 /100WBC 04/20/21 05:06 D-Dimer >= 20.00 ug/mIFEU (0-0.59) H 04/18/21 04:35 Specimen Type Arterial 04/20/21 04:15 Sample Site Brachial, right 04/20/21 04:15 ABG pH 7.34 (7.35-7.45) L 04/20/21 04:15 ABG pCO2 48.0 mmHg (35-45) H 04/20/21 04:15 ABG pO2 68.5 mmHg (80.0-100.0) L 04/20/21 04:15 ABG HCO3 26.0 mmol/L (22-26) 04/20/21 04:15 ABG O2 Saturation 96.8 04/19/21 04:48 ABG Base Excess -0.1 mmol/L (-2.0-2.0) 04/20/21 04:15 Jorge Test N/a 04/20/21 04:15 A-a O2 Gradient 45.2 mmHg (5-10) H 04/19/21 04:48 Hematocrit 30.3 % (42-52) L 04/20/21 04:15 Hgb O2 Saturation 95.4 % (95-100) 04/19/21 04:48 Carboxyhemoglobin 0.8 %THgb (0.4-20.1) 04/19/21 04:48 Methemoglobin 0.6 % (0.4-1.5) 04/19/21 04:48 Total Hemoglobin 13.3 g/dL (14-18) L 04/19/21 04:48 Sodium 136.0 mmol/L (131-143) 04/19/21 04:48 Potassium 3.2 mmol/L (3.5-5.0) L 04/19/21 04:48 Glucose 217.0 mg/dL (70-115) H 04/19/21 04:48 Ionized Calcium 1.3 mmol/L (1.1-1.4) 04/19/21 04:48 O2 Delivery Device Vent 04/20/21 04:15 O2 Liters/Min 15.0 % 04/16/21 01:00 FiO2 70.0 % 04/20/21 04:15 Tidal Volume 0.50 04/20/21 04:15 PEEP 5.0 cmH20 04/20/21 04:15 Clinical Research Physician ID Hinja 04/20/21 04:15 Sodium 134 mmol/L (136-145) L 04/20/21 05:06 Potassium 3.1 mmol/L (3.5-5.1) L 04/20/21 05:06 Chloride 99 mmol/L (98-107) 04/20/21 05:06 Carbon Dioxide 25 mmol/L (22-29) 04/20/21 05:06 Anion Gap 13.1 (5-19) 04/20/21 05:06 BUN 49 mg/dL (8-23) H 04/20/21 05:06 Creatinine 1.2 mg/dL (0.7-1.2) 04/20/21 05:06 GFR Calculation Not Reportable 04/20/21 05:06 Glucose 175 mg/dL (65-115) H 04/20/21 05:06 POC Glucose 106 mg/dL (70-110) 04/16/21 00:05 Estimat Average Glucose 126 04/20/21 05:06 Hemoglobin A1c 6.0 % (4.0-6.0) 04/20/21 05:06 Calculated Osmolality 295 mOsm/kg (285-295) 04/20/21 05:06 Lactic Acid 1.1 mmol/L (0.5-2.2) 04/12/21 16:50 Calcium 9.1 mg/dL (8.5-10.5) 04/20/21 05:06 Magnesium 1.8 mg/dL (1.7-2.3) 04/13/21 04:15 Iron 26 ug/dL (59-158) L 04/19/21 02:45 TIBC 80 mcg/dl 04/19/21 02:45 % Saturation 32.5 % (20-50) 04/19/21 02:45 Unsat Iron Binding 54 ug/dL (112-347) L 04/19/21 02:45 Total Bilirubin 0.2 mg/dL (0.15-1.2) 04/20/21 05:06 AST 44 U/L (0-40) H 04/20/21 05:06 ALT 33 U/L (0-41) 04/20/21 05:06 Alkaline Phosphatase 110 IU/L (40-130) 04/20/21 05:06 Lactate Dehydrogenase 391 U/L (135-225) H 04/19/21 02:45 Troponin T Gen 5 ng/L 46 ng/L (0-15) H 04/16/21 13:00 C-Reactive Protein 116.2 mg/L (0.0-4.9) H 04/12/21 16:50 NT-Pro-B Natriuret Pep 677 pg/mL (0-125) H 04/16/21 00:52 NT-Pro-B Natriuret Pep Cancelled 04/16/21 00:52 Total Protein 6.2 g/dL (6.6-8.7) L 04/20/21 05:06 Albumin 2.2 g/dL (3.5-5.2) L 04/20/21 05:06 Globulin 4.0 g/dL (1.3-4.6) 04/20/21 05:06 Triglycerides 86 mg/dL (0-150) 04/20/21 05:06 Cholesterol 74 mg/dL (0-200) 04/20/21 05:06 LDL Cholesterol, Calc 37 mg/dL (50-129) L 04/20/21 05:06 Total VLDL Cholesterol 17 mg/dL (0-30) 04/20/21 05:06 HDL Cholesterol 20 mg/dL (60-100) L 04/20/21 05:06 Cholesterol/HDL Ratio 3.70 mg/dL (1.0-5.00) 04/20/21 05:06 Procalcitonin 3.19 ng/mL (0-0.5) H 04/19/21 02:45 TSH 0.77 uIU/mL (0.27-4.20) 04/19/21 02:45 Nasal Influ A H1 2009 PCR Not detected (NOT DETECT) 04/15/21 18:00 Bronch Specimen Source Left lower lobe 04/19/21 14:30 Bronchial Fluid Color Colorless 04/19/21 14:30 Bronchial Fluid Appearance Clear (CLEAR) 04/19/21 14:30 Bronchial Fluid WBC 284 /uL 04/19/21 14:30 Bronchial Fluid RBC 1 10^3/uL 04/19/21 14:30 Bronch Cells Counted 300 04/19/21 14:30 Bronchial Neutrophils 13.30 % (0.9-2.3) H 04/19/21 14:30 Bronchial Lymphocytes 8.30 % (10.71-12.91) L 04/19/21 14:30 Bronchial Eosinophils 0.00 % (0.13-0.25) L 04/19/21 14:30 Bronchial Macrophages 78.40 % (83.6-86.8) L 04/19/21 14:30 Bronchial Other Cells 0 % 04/19/21 14:30 Bronchial Diff Comment Yes 04/19/21 14:30 Vancomycin Trough 17.2 ug/mL (10-15) H 04/18/21 18:45 Adenovirus (PCR) Not detected (NOT DETECT) 04/15/21 18:00 C. pneumoniae DNA (PCR) Not detected (NOT DETECT) 04/15/21 18:00 Coronavirus 229E (PCR) Not detected (NOT DETECT) 04/17/21 14:20 Human Metapneumovir PCR Not detected (NOT DETECT) 04/15/21 18:00 Influenza A (H1) PCR Not detected (NOT DETECT) 04/15/21 18:00 Influenza A (H3) PCR Not detected (NOT DETECT) 04/15/21 18:00 Influenza Type A Ag Negative (Negative) 04/14/21 13:00 Influenza Type A (PCR) Not detected (NOT DETECT) 04/15/21 18:00 Influenza Type B Ag Negative (Negative) 04/14/21 13:00 Influenza Type B (PCR) Not detected (NOT DETECT) 04/15/21 18:00 M. pneumoniae (PCR) Not detected (NOT DETECT) 04/15/21 18:00 Parainfluenza 1 (PCR) Not detected (NOT DETECT) 04/15/21 18:00 Parainfluenza 2 (PCR) Not detected (NOT DETECT) 04/15/21 18:00 Parainfluenza 3 (PCR) Not detected (NOT DETECT) 04/15/21 18:00 Parainfluenza 4 (PCR) Not detected (NOT DETECT) 04/15/21 18:00 RSV Type A (PCR) Not detected (NOT DETECT) 04/15/21 18:00 RSV Type B (PCR) Not detected (NOT DETECT) 04/15/21 18:00 Entero/Rhino (PCR) Not detected (NOT DETECT) 04/15/21 18:00 SARS-CoV-2 (PCR) Not detected (NOT DETECT) 04/17/21 14:20 Beta-(1,3)-D-Glucan Cancelled 04/20/21 05:06 B-(1,3)-D-Glucan Intrp Cancelled 04/20/21 05:06 Micro: Microbiology 04/19/21 14:30 Gram Stain - Final Lung Left Lower Lobe Bronchoalveolar Lavage Culture - Preliminary 04/19/21 12:45 Gram Stain - Final Sputum - Endotracheal Tube Aspirate Sputum Culture - Preliminary 04/18/21 18:47 Blood Culture - Preliminary Blood NEGATIVE TO DATE 04/18/21 18:45 Blood Culture - Preliminary Blood NEGATIVE TO DATE 04/19/21 04:40 Bacterial Antigens - Final Urine Kidney 04/19/21 09:40 Legionella Urinary Antigen - Final Urine Catheterized A&P Assessment and plan (1) Acute respiratory failure with hypoxia: Status: Acute (2) Pneumonia: Status: Acute (3) Esophageal cancer: Status: Acute (4) Immunosuppressed due to chemotherapy: Status: Acute (5) PCP (pneumocystis jiroveci pneumonia): Status: Acute (6) Emphysema/COPD: Status: Acute (7) Acquired pneumomediastinum: Status: Acute (8) Pneumopericardium: Status: Acute Plan #Acute hypoxic respiratory failure in patient likely secondary to pneumonia and patient is on chemotherapy for esophageal cancer #Suspect PCP pneumonia given his immunosuppression #Septic shock on Levophed #Thrombocytopenia-suspect heparin-induced thrombocytopenia -Currently intubated 04/17/2021-on CMV 500/22/5/70%; -ABG 7.34/48/68/26- saturations were 85-88%increased fio2 to 80% -Sedated with fentanyl 100 MCG/hour, Versed 2 mg/hour, propofol 20, -Patient currently on pressors Levophed 8 MCG -Discontinued hydrocortisone 50 every 6 HR (equivalent prednisone 50 mg)- changed prednisone 40 mg p.o. twice daily for 5 days followed by 40 mg daily for 5 days and 20 mg for 11 days -Reduced PEEP to 5 to prevent worsening of pneumomediastinum -CTA 04/19/2021 showed interval development of pneumomediastinum/pneumopericardium and subcu emphysema compared to CT 3 06/03/2021-bilateral dense consolidations and bilateral small pleural effusions -CXR 04/20/21 - There is a very tiny RIGHT apical pneumothorax. Recently described pneumomediastinum and pneumopericardium are not evident radiogra phically. May have resolved in the interval. -So far lower extremity Dopplers negative for DVT, CT negative for PE, sputum culture moderate normal maria ines, urine bacterial antigens and Legionella antigen negative. MRSA nares negative. Blood cultures negative so far, procalcitonin increased 3.19 in the absence of renal failure. -Patient was on vancomycin, imipenem and Levaquin -I did bronchoscopy 04/19/21-mild erythema noted in bilateral lower lobes-2 BAL samples from left lower lobe and sent for mycobacterial/bacterial/fungal cultures-PCP PCR, galactomannan index-we will follow up results -Also beta D glucan levels pending -Given his history of chemotherapy and related immunosuppression-started on Bactrim 04/20/21 and treat PCP pneumonia until PCR results are available -Try to keep net negative to even fluid balance while monitoring renal functions -Potassium 3.1-supplemented and will monitor -Platelets 49K-upon review there has been > 50% drop - stopped Lovenox and sent for HIT and Serotonin release assay - Use SCDs for DVT ppx -We will continue to monitor clinically, taper down FiO2, tapered on pressors and adjust antibiotics based on cultures -Prognosis guarded -Limited resuscitation -Next of kin updated -DVT prophylaxis: Held lovenox for suspected HIT and placed on SCDs -GI prophylaxis PPI Recommendations conveyed to hospitalist, RN, RT taking care of the patient Attestations Medical Necessity Statement*: Acute hypoxic respiratory failure likely secondary to HAP/PCP pneumonia and patient with significant immunosuppression secondary to chemotherapy for colon cancer-currently requiring mechanical ventilator for respiratory support, pressor support for septic shock, need close ICU monitoring Time Spent in Patient Care: Greater than 35 minutes (>than 50% of time spent in counselling and/or direct pt care on unit) . Critical Care Time: The high probability of a clinically significant, sudden or life threatening deterioration of the patient's [pulmonary, cardiac, renal, hematologic] system(s) required my full and direct attention, intervention and personal management. The critical care time is as shown. This time is in addition to time spent performing any reported procedures but includes the following: [x] Data and vital sign review and interpretation [x] Patient assessment, examination and intervention [x] Documentation [x] Medication orders and management Critical Care Time (min): 50 Coding Level of Care Code Established Pt Acute Environmental Programs Manager for Chg Fwd Patient Type Established History Comprehensive Exam Comprehensive Medical Decision Making High Complexity Diagnoses Acute respiratory failure with hypoxia J96.01 Pneumonia J18.9 Esophageal cancer C15.9 Immunosuppressed due to chemotherapy D84.821; T45.1X5A; Z79.899 PCP (pneumocystis jiroveci pneumonia) B59 Emphysema/COPD J43.9 Acquired pneumomediastinum J98.2 Pneumopericardium I31.9 Time Spent (min) 50
[2021-04-20 14:43] LABS: Anion Gap 16.6 (5-19); Blood Urea Nitrogen 52 mg/dL (8-23); Carbon Dioxide 23 mmol/L (22-29); Chloride 98 mmol/L (98-107); Glucose 186 mg/dL (65-115); Magnesium 2.1 mg/dL (1.7-2.3); Osmolality Calculated 297 mOsm/kg (285-295); Potassium 3.6 mmol/L (3.5-5.1); Sodium 134 mmol/L (136-145)
[2021-04-20] MEDS: propofol 1,000 MG/100 ML INJ 9.84 MG IV (15:25)
--- NOTE | 2021-04-20 15:43 | P.PN_ITS ---
Subjective Subjective: No acute events overnight. On examination patient is intubated, sedated. Currently on 70% FiO2, PEEP of 5, tidal volume of 500 saturating 92%. Has remained hemodynamically stable on Levophed of 6. Been weaned off slowly. Documented urine output of around 2 L in last 24 hours. Body weight up to 81 kg from 78. Vitals/I&O/Wt Last Vital Signs Temp 99.4 F 04/20/21 09:15 Pulse 102 H 04/20/21 14:03 Resp 22 H 04/20/21 14:09 BP 103/53 04/20/21 12:30 Pulse Ox 90 04/20/21 14:09 04/20/21 04/20/21 04/20/21 06:59 14:59 22:59 Intake Total 906.928 / 2967.984 1803.611 / 1803.611 82.82 / 1886.431 Output Total 1100 / 2150 400 / 400 Balance -193.072 / 957.855 0356.611 / 1403.611 82.82 / 1486.431 Weight last 48 hrs Weight 81.647 kg Weight 78.834 kg Physical Exam Narrative: General: Intubated, sedated on ventilator HEENT: PERRLA, pupils bilaterally equal and reactive Chest: Bronchial breath sounds, coarse crackles all over the lung, equal good air entry bilaterally CVS: S1-S2 regular, tachycardia, no gallops, no rubs Abdomen: Soft, nontender, no organomegaly, bowel sounds present Neuro: No focal deficits, no facial deformity, AO x3, power 5/5 in all limbs Urinary Catheter Management: Mae: Cath Placed During This Visit: yes Reason for Continuing Indwelling Catheter: Accurate Measurement of Urinary Output in Critically Ill Patients Urinary Catheter Date of Insertion: 04/17/21 Urinary Catheter Time of Insertion: 21:57 Data : 04/20/21 05:06 04/20/21 13:51 Micro: Microbiology 04/19/21 14:30 Gram Stain - Final Lung Left Lower Lobe Bronchoalveolar Lavage Culture - Preliminary 04/19/21 12:45 Gram Stain - Final Sputum - Endotracheal Tube Aspirate Sputum Culture - Preliminary 04/18/21 18:47 Blood Culture - Preliminary Blood NEGATIVE TO DATE 04/18/21 18:45 Blood Culture - Preliminary Blood NEGATIVE TO DATE 04/19/21 04:40 Bacterial Antigens - Final Urine Kidney 04/19/21 09:40 Legionella Urinary Antigen - Final Urine Catheterized A&P Assessment and plan (1) Acute respiratory failure with hypoxia: Status: Acute (2) Pneumonia: Status: Acute (3) Pneumopericardium: Status: Acute (4) Acquired pneumomediastinum: Status: Acute (5) Emphysema/COPD: Status: Acute (6) Immunosuppressed due to chemotherapy: Status: Acute (7) Esophageal cancer: Status: Acute (8) HTN (hypertension): Status: Acute (9) Thrombocytopenia: Status: Acute Plan 70 year old male with past medical history of esophageal cancer on chemotherapy with FOLFOX/pembrolizumab, Last chemo cycle done a month back, hypertension, came in with chief complaint of worsening shortness of breath going on for the last 2 weeks. Assessment #Septic shock secondary to pneumonia #Acute hypoxic respiratory failure secondary to pneumonia: #Pneumomediastinum/pneumopericardium Blood culture, sputum culture, urine Legionella, bacterial antigen so far negative. Respiratory panel and COVID-[address] results appreciated. Consistent with pneumopericardium, pneumomediastinum. Extensive bilateral pneumonitis. No pulmonary embolism. MRSA swab, Fungitell, PCP PCR awaited. Bronchoscopy sample results of awaited. Appreciate pulmonology recommendations. Continue with vancomycin and Zosyn, Levaquin. Continue with Bactrim for possible PCP pneumonia. Continue mechanical ventilation. Weaning down settings keeping saturation over 88%. Keep PEEP of around 5 given pneumomediastinum and pneumopericardium. DuoNebs every 6 hour, budesonide twice daily. Switch to prednisone 40 mg oral twice daily. For next 5 days. Wean down slowly. Creatinine under pressure 65. Wean down Levophed accordingly. Cheetah evaluation showed no fluid responsiveness. Start on albumin every 8 hourly for 1 day. IV Lasix 40 mg once a day. Strict input output charting, daily weights. #Thrombocytopenia: Cannot rule out HIT. Stop Lovenox. Check DIC, HIT panel. Repeat CBC in afternoon. # ELIZABETH ON CKD likely 2/2 To ATN 2/2 Ac Hypotension Currently stable. Follow BMP. Medical reconciliation done for nephrotoxic drugs. Monitor BMP electrolytes daily. #History of esophageal cancer: Currently on chemotherapy, missed last chemotherapy session was on eighth of this month. Patient will continue to follow oncology as an outpatient SCDs for DVT prophylaxis. CODE STATUS: Discussed in detail with patient's and daughter over the phone. They state he would have not wanted any kind of heroic measures and he was also hesitant about mechanical ventilation prior to be put on a ventilator. He would not want any kind of chest compressions. CODE STATUS changed to limited resuscitation. Protonix for PUD prophylaxis. Restart on tube feeds post bronchoscopy. Guarded prognosis Attestations Medical Necessity Statement*: Requires further hospitalization for management of septic shock, acute hypoxic respiratory failure secondary to pneumonia requiring mechanical ventilation, severe thrombocytopenia Critical Care Time: The high probability of a clinically significant, sudden or life threatening deterioration of the patient's [pulmonary, cardiac, renal, hematological system(s) required my full and direct attention, intervention and personal management. The critical care time is as shown. This time is in addition to time spent performing any reported procedures but includes the following: [x] Data and vital sign review and interpretation [x] Patient assessment, examination and intervention [x] Documentation [x] Medication orders and management Critical Care Time (min): 90 Coding Level of Care Code Acute Multi Share Program Coordinator for g Fwd Diagnoses Acute respiratory failure with hypoxia J96.01 Pneumonia J18.9 Pneumopericardium I31.9 Acquired pneumomediastinum J98.2 Emphysema/COPD J43.9 Immunosuppressed due to chemotherapy D84.821; T45.1X5A; Z79.899 Esophageal cancer C15.9 HTN (hypertension) I10 Thrombocytopenia D69.6
--- NOTE | 2021-04-20 15:56 | PC.NURSE ---
Patient had copious emesis. OG hooked up to suction with 475 removed at 1300. OG now has 0 residual. Tube feed started at 10cc/hr.
[2021-04-20 16:34] LABS: Basophils % 0.2 %; Eosinophils # 0.3 10^3/uL (0.0-0.8); Hematocrit 29.1 % (42.0-52.0); Hemoglobin 9.1 g/dL (11.7-16.6); Lymphocytes # 0.5 10^3/uL (0.8-4.8); Lymphocytes % 3.4 %; Mean Corpuscular HGB Conc 31.3 g/dL (30.0-36.0); Mean Corpuscular Hemoglobin 30.1 pg (28.0-34.0); Mean Corpuscular Volume 96.4 fl (80-94); Mean Platelet Volume 11.6 fL (7.4-10.4); Monocytes # 0.5 10^3/uL (0.2-0.9); Monocytes % 3.1 %; Neutrophils # 13.36 10^3/uL (1.8-7.7); Neutrophils % 90.1 %; Nucleated Red Blood Cells % 0 %; Platelet Count 31 10^3/cmm (130-400); Red Blood Count 3.02 10^6/uL (4.1-5.3); Red Cell Distribution Width 15.8 % (12.1-15.1); White Blood Count 14.8 10^3/uL (4.0-10.0)
[2021-04-20 16:51] LABS: Anion Gap 17.4 (5-19); Blood Urea Nitrogen 55 mg/dL (8-23); Calcium 8.8 mg/dL (8.5-10.5); Carbon Dioxide 21 mmol/L (22-29); Chloride 98 mmol/L (98-107); Glucose 216 mg/dL (65-115); Magnesium 2.2 mg/dL (1.7-2.3); Osmolality Calculated 298 mOsm/kg (285-295); Potassium 3.4 mmol/L (3.5-5.1); Sodium 133 mmol/L (136-145)
[2021-04-20 16:59] LABS: INR 1.32 (0.8-1.2)
[2021-04-20 17:00] LABS: Fibrinogen 381 mg/dL (174-498); Partial Thromboplastin Time 40.7 SECONDS (23.9-36.7)
[2021-04-20 17:04] LABS: Slide Review Slide Review Perform
[2021-04-20 17:10] LABS: LAB Peripheral Smear Sent for Review
--- NOTE | 2021-04-20 17:15 | ECG_ITS ---
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 Measurements Intervals [place] Rate: 116 P: 23 [place]: 140 QRS: 68 QRSD: 158 T: -36 QT: 354 QTc: 493 Interpretive Statements SINUS TACHYCARDIA RIGHT BUNDLE BRANCH BLOCK [120+ ms QRS DURATION, UPRIGHT V1, 40+ ms S IN I/aVL/V4/V5/V6] Compared to ECG 04/16/2021 05:14:40 No significant changes Electronically Signed On 04-20-2021 17:37:21 CHILD CARE AIDE by Harjit Rankin M.D. [email or web address] [email or web address] choice medical center of smith countyCynnycleveland clinic [email or web address]/[id number]
[2021-04-20 17:16] LABS: D Dimer >= 20.00 ug/mIFEU (0-0.59)
--- NOTE | 2021-04-20 17:23 | PC.NURSE ---
Patient status discussed with Dr. Padilla. Physician notified of SVT run. Reviewed labs. Dr. Padilla ordered Mag 2 gram IV ONCE. EKG stat to return call with results of QTC. All orders read back and confirmed.
--- NOTE | 2021-04-20 17:41 | PC.NURSE ---
Dr. Padilla notified of EKG results. Discussed Levophed parameters. New goal of map above 60- titrate accordingly.
[2021-04-20] MEDS: magnesium sulfate premix 2 GM/50 ML PIGGYBACK IV (18:05)
[2021-04-20] MEDS: predniSONE 20 mg Tablet 40 MG PO (18:05)
[2021-04-20 20:37] LABS: Vancomycin Trough 29.9 ug/mL (10-15)
--- NOTE | 2021-04-20 20:44 | XRR_ITS ---
PROCEDURE INFORMATION: Exam: XR Chest Exam date and time: 04/20/2021 8:44 PM Age: 70 years old Clinical indication: Shortness of breath; Additional info: Respiratory distress; Possible pneumothorax TECHNIQUE: Imaging protocol: XR of the chest. Views: 1 view. COMPARISON: CR XR chest 1V portable [id number] 04/20/2021 4:35 AM FINDINGS: Tubes, catheters and devices: The life-support lines and tubes appear stable in position. Lungs: The pulmonary opacities have moderately worsened since the prior exam, particularly in the left lung, which may be asymmetric pulmonary edema or pneumonia. Pleural spaces: Unremarkable. No pleural effusion. No pneumothorax. Heart/Mediastinum: Unremarkable. No cardiomegaly. Bones/joints: Unremarkable. XR/XR chest 1V portable [id number] IMPRESSION: Moderate interval worsening of the pulmonary opacities which may be asymmetric pulmonary edema or pneumonia.
[2021-04-20] MEDS: FUROsemide 10 mg/mL SDV 4mL 40 MG IVP (21:07)
[2021-04-20] MEDS: tamsulosin 0.4 mg Capsule PO (21:07)
--- NOTE | 2021-04-20 21:43 | ECG_ITS ---
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 Measurements Intervals [place] Rate: 136 P: 30 WI: 145 QRS: 55 QRSD: 117 T: -30 QT: 295 QTc: 445 Interpretive Statements SINUS TACHYCARDIA MODERATE INTRAVENTRICULAR CONDUCTION DELAY [110+ ms QRS DURATION] MODERATE T-WAVE ABNORMALITY, CONSIDER INFERIOR ISCHEMIA [-0.1+ mV T-WAVE IN II/aVF] Compared to ECG 04/20/2021 17:35:56 Intraventricular conduction delay now present T-wave abnormality now present Possible ischemia now present Right bundle-branch block no longer present Electronically Signed On 04-20-2021 21:51:08 OR FIRST ASSIST REGISTERED NURSE by Harjit Rankin M.D. [id number] f
[2021-04-20] MEDS: levofloxacin-dextrose 5 % 750 MG/150 ML PREMIX 100 MG IV (22:02)
[2021-04-20] MEDS: acetaminophen 325 mg Tablet 650 MG PO (22:56)
[2021-04-21] VITALS (85 sets, daily range): BP systolic 79–140; BP diastolic 44–63; PULSE 82–115; RESP 24–35; TEMP 36.8–37.4; O2SAT 88–95
[2021-04-21] MEDS: propofol 1,000 MG/100 ML INJ 9.84 MG IV ×2 (00:57→10:25)
--- NOTE | 2021-04-21 01:59 | PC.PHAR ---
Pharmacokinetic dosing service Date: 04/20/21 Time: 0200 Patient: Floor: Weight: 81.647 Kilograms Vancomycin single level analysis: Current dose being given: mg Current dosing interval: hrs Current infusion time (hrs): 1.5 Single level Trough Data: Trough level obtained: 29.9 mcg/ml Timing of trough - # of hrs before next dose: 0.50 Hrs Desired peak: 40 mcg/ml Desired trough: 16 mcg/ml Diagnosis: Relevant medical/social history: Cultures and sensitivities: Other labs: Estimated PK Parameters: New rate constant (magdaleno): 0.039 hr-1 Half-life: 17.77 Hours Vd from levels: 73.48 Liters (0.7 L/kg) CLvanco=?? 2.866 L/hr Estimated New Dose and Interval Recommended dose: 1884.6 mg Recommended interval: 25.0 Hrs Patient response: Patient is responding to treatment [yes/no] wbc decreasing, S/SX reduced [yes/no] Renal function is stable/unstable Recommendations: Give Vancomycin 1250 mg q 18 hrs. Infuse over 1.5 hrs Expected Cpeak: 32.8 mcg/mL Expected Ctrough: 17.2 mcg/mL AUC 0-24 /ZAIN Data: ZAIN 0.5 mcg/mL:?? AUC/ZAIN:? 1163.1 ZAIN 1.0 mcg/mL:?? AUC/ZAIN:? 581.5 Recommended labs and intervals: Measure Bun and Scr 3 times/week. Renal dosing of other antibiotics (review renal dosing of other medications and list guidelines here): Thank you for the consult, will continue to follow. Marga Anders [facility]
[2021-04-21] MEDS: ipratropium-albuterol 3 mL Neb INHALATION ×4 (02:32→19:59)
[2021-04-21 03:55] LABS: Basophils % 0.2 %; Eosinophils # 0.3 10^3/uL (0.0-0.8); Eosinophils % 1.8 %; Hematocrit 28.3 % (42.0-52.0); Lymphocytes # 0.5 10^3/uL (0.8-4.8); Lymphocytes % 3.6 %; Mean Corpuscular HGB Conc 31.8 g/dL (30.0-36.0); Mean Corpuscular Hemoglobin 30.1 pg (28.0-34.0); Mean Corpuscular Volume 94.6 fl (80-94); Mean Platelet Volume 12.4 fL (7.4-10.4); Monocytes # 0.3 10^3/uL (0.2-0.9); Monocytes % 2.2 %; Neutrophils # 12.95 10^3/uL (1.8-7.7); Nucleated Red Blood Cells % 0 %; Red Blood Count 2.99 10^6/uL (4.1-5.3); Red Cell Distribution Width 15.9 % (12.1-15.1); White Blood Count 14.2 10^3/uL (4.0-10.0)
[2021-04-21 04:13] LABS: Alanine Aminotransferase 26 U/L (0-41); Albumin Level 2.7 g/dL (3.5-5.2); Alkaline Phosphatase 88 IU/L (40-130); Anion Gap 17.2 (5-19); Aspartate Amino Transferase 26 U/L (0-40); Blood Urea Nitrogen 58 mg/dL (8-23); Carbon Dioxide 22 mmol/L (22-29); Chloride 96 mmol/L (98-107); Globulin 2.9 g/dL (1.3-4.6); Glucose 169 mg/dL (65-115); Osmolality Calculated 292 mOsm/kg (285-295); Potassium 4.2 mmol/L (3.5-5.1); Sodium 131 mmol/L (136-145); Total Bilirubin 0.2 mg/dL (0.15-1.2); Total Protein 5.6 g/dL (6.6-8.7)
[2021-04-21 04:23] LABS: Slide Review Slide Review Perform
[2021-04-21 04:25] LABS: Platelet Count 21 10^3/cmm (130-400)
[2021-04-21 04:57] LABS: ABG PCO2 48.9 mmHg (35-45); Arterial Blood Gas Hematocrit 29.9 % (42-52); Base Excess ABG -4.9 mmol/L (-2.0-2.0); Blood Gas Sample Site Brachial, right; Blood Gas Sample Type Arterial; HCO3 ABG 22.1 mmol/L (22-26); Oxygen Device VENT; PO2 ABG 87.5 mmHg (80.0-100.0)
[2021-04-21 05:08] LABS: ABG PH Result 7.26 (7.35-7.45)
[2021-04-21] MEDS: sulfamethoxazole-trimeth inj 480 MG in dextrose 5 % 500 ML 500 MG IV ×2 (05:37→19:06)
--- NOTE | 2021-04-21 06:50 | PC.NURSE ---
Patient had a busy night. Upon initial assessment, HR was 120 and oxygen requirements were 80% on the vent satting 90%, within 30min to an hour the patient's HR was 140 sinus tachycardia, and bumped up to 100% on the vent satting 90%. Levo was turned off. Attempted to call Dr. Black at 1999 and 2010, no response. Attempted to call again at 2038 and still no answer. Able to reach her at 2040, orders to obtain a stat chest xray. Dr. Black rounded bedside at 2136, orders to obtain a 12lead and to give a one time amio bolus for rate control. The amio bolus helped with heart rate. Lasix was given after the albumin had finished. HR slowly improved and came down, and oxygen slowly recovered over a few hours on 100% on the vent. Spoke with Dr. Black after RT called regarding the morning blood gas, orders to go up on the patient's versed drip from 3mg to 5mg at 0511 this morning. Neuro, pupils remained a 1mm bilaterally. Withdraws and localizes to pain. Ending my shift with the patient in NSR with a heart rate in the 80's. Pulses palpable and present. Vent at 95%, coarse and diminished breath sounds. 750ml UOP, no bowel movement. Update daughter three times throughout the night, she has no further questions at this time. Will be by to visit later this morning after her appointment. Held tube feed in regards to my report from previous day shift and vomiting, with high residuals and tube feed, as well as the amount from being hooked up to LIS being 475 from yesterday day shift. No further concerns at this time. Report passed along to day shift RN.
[2021-04-21] MEDS: budesonide 0.5 mg/2 mL Neb INHALATION ×2 (07:44→19:59)
[2021-04-21] MEDS: pantoprazole 40 mg SDV IVP (08:00)
[2021-04-21] MEDS: predniSONE 20 mg Tablet 40 MG PO ×2 (08:00→19:06)
--- NOTE | 2021-04-21 08:21 | PC.SOCIAL ---
IMM Not Updated IMM not updated; patient currently intubated and not anticipated to discharge within the next 48hours.
--- NOTE | 2021-04-21 10:00 | XRR_ITS ---
PROCEDURE INFORMATION: Exam: XR Chest Exam date and time: 04/21/2021 10:00 AM Age: 70 years old Clinical indication: Condition or disease; Lung condition and disease; Respiratory failure; Status not specified; Additional info: Intubated TECHNIQUE: Imaging protocol: XR of the chest. Views: 1 view. COMPARISON: CR (CHEST, ) 04/20/2021 8:52 PM FINDINGS: Tubes, catheters and devices: An endotracheal tube is present with the tip 3.8 cm above the uyen. A MediPort catheter is present with tip projecting in the SVC. A right jugular venous catheter tip projects near the junction of the SVC and right atrium. Nasogastric tube extends down to the stomach. Lungs: There are stable diffuse bilateral pulmonary infiltrates more prominently in the left lung. Pleural spaces: Unremarkable. No pleural effusion. No pneumothorax. Heart/Mediastinum: See Tubes, catheters and devices finding. Bones/joints: Unremarkable. XR/XR chest 1V portable [id number] IMPRESSION: Stable diffuse bilateral pulmonary infiltrates.
--- NOTE | 2021-04-21 10:02 | PC.CHAP ---
Pastoral Care Encounter/Spiritual Assessment Type of Contact [] Declined cardiology clinical consultant visit [] Patient/Family/Request visit [] Outpatient visit [] Follow-up visit [] Physician referral [] Code/Alert [x] Routine visit [] Staff referral [] Actively dying [x] Patient sleeping [] Family support [] [] Out of room [] Palliative care [] [] Receiving care in room [] Pre-surgical visit [] Trauma [] Long length of stay [x] ICU visit [x] Other: vent Relational/Emotional Strength [] Patient feels connected with others/family/visitors/staff [] Distress [] Loneliness/isolation [] Abandonment Spirituality of Patient [] Person of Ashley [] Attends Yazidi of their Ashley [] Believes in Prayer [] Reads Bible or Buddhism materials [] There are Spiritual issues to be addressed Skein [place]rier Interventions x[] Prayer [] Active listening [] Non-anxious presence [] Spiritual/emotional support [] Crisis/trauma care [] Spiritual counseling [] Bereavement support [] Provided bereavement packet [] Provided Bible/devotional materials [] Provided toy/stuffed animal, coloring book to patient or family member [] Provided Communion [] Anointing/[place] [] Salvation [x] Completed spiritual assessment [] Other: Impact on Illness or Injury [] Angry [] Fearful [] Anxious [] Often cries [] Exhaustion [] Unable to work [] Unable to attend bahai [] Unable to walk/stand [] Unable to read [] Unable to drive [] Unable to eat/drink [] Unable to sleep [] Unable to be with family [] Patient intubated [] Other: Summary Time spent with patient
--- NOTE | 2021-04-21 11:00 | PC.NURSE ---
Report given to Merary HONG
--- NOTE | 2021-04-21 11:10 | PC.NURSE ---
Report received from HAL Noonan. Care assumed. Pt remains sedated and on vent. Fentanyl, Propofol and Versed infusing for sedation and comfort. Pt on Levophed and vassopressin for B/P support.
[2021-04-21] MEDS: FUROsemide 10 mg/mL SDV 4mL 40 MG IVP (12:00)
--- NOTE | 2021-04-21 13:20 | PC.NURSE ---
[facility] and PT evaluations and noted. Pt needs to be off IV palacios meds and have a BM within 5 days of discharge, to be admitted to this facility.
--- NOTE | 2021-04-21 13:56 | PM.PN ---
Subjective Subjective: Overnight patient had episode of tachycardia when his heart rate went up to 130s along with hypoxia. Chest x-ray was done which ruled out pneumothorax but showed worsening pneumonitis versus CHF. He was given bolus of amiodarone after which his heart rate settled down. FiO2 was turned up to 95%. Currently on examination he is on PEEP of 5, tidal volume of 500, FiO2 of 85% saturating 92%. Mean arterial pressure has remained over 60. In the morning today patient was started on vasopressin so that Levophed can be turned down for less nephrotoxic properties. Tube feeds were withheld though was not really sure of the reason. T-max in last 24 hours 101.4 Fahrenheit. No bleeding or oozing of blood. Vitals/I&O/Wt Last Vital Signs Temp 98.4 F 04/21/21 08:00 Pulse 88 04/21/21 08:00 Resp 27 H 04/21/21 13:10 BP 99/45 04/21/21 08:00 Pulse Ox 94 04/21/21 13:10 04/20/21 04/21/21 04/21/21 22:59 06:59 14:59 Intake Total 1910.767 / 3714.378 1772.228 / 5486.606 635.039 / 635.039 Output Total 900 / 1300 750 / 2050 Balance 1010.767 / 2414.378 1022.228 / 3436.606 635.039 / 635.039 Weight last 48 hrs Weight 82.554 kg Weight 81.647 kg Physical Exam Narrative: General: Intubated, sedated on ventilator HEENT: PERRLA, pupils bilaterally equal and reactive Chest: Bronchial breath sounds, coarse crackles all over the lung, equal good air entry bilaterally CVS: S1-S2 regular, tachycardia, no gallops, no rubs Abdomen: Soft, nontender, no organomegaly, bowel sounds present Neuro: No focal deficits, no facial deformity, AO x3, power 5/5 in all limbs Urinary Catheter Management: Mae: Cath Placed During This Visit: yes Reason for Continuing Indwelling Catheter: Accurate Measurement of Urinary Output in Critically Ill Patients Urinary Catheter Date of Insertion: 04/17/21 Urinary Catheter Time of Insertion: 21:57 Data : 04/21/21 03:01 04/21/21 03:01 Micro: Microbiology 04/19/21 12:45 Gram Stain - Final Sputum - Endotracheal Tube Aspirate Sputum Culture - Preliminary 04/19/21 14:30 Gram Stain - Final Lung Left Lower Lobe Bronchoalveolar Lavage Culture - Preliminary 04/19/21 09:29 MRSA Culture - Final Nose A&P Assessment and plan (1) Acute respiratory failure with hypoxia: Status: Acute (2) Pneumonia: Status: Acute (3) Pneumopericardium: Status: Acute (4) Acquired pneumomediastinum: Status: Acute (5) Emphysema/COPD: Status: Acute (6) Immunosuppressed due to chemotherapy: Status: Acute (7) Esophageal cancer: Status: Acute (8) HTN (hypertension): Status: Acute (9) Thrombocytopenia: Status: Acute Plan 70 year old male with past medical history of esophageal cancer on chemotherapy with FOLFOX/pembrolizumab, Last chemo cycle done a month back, hypertension, came in with chief complaint of worsening shortness of breath going on for the last 2 weeks. Assessment #Septic shock secondary to pneumonia #Acute hypoxic respiratory failure secondary to pneumonia: #Pneumomediastinum/pneumopericardium Blood culture, sputum culture, urine Legionella, bacterial antigen so far negative. Respiratory panel and COVID-[address] results appreciated. Consistent with pneumopericardium, pneumomediastinum. Extensive bilateral pneumonitis. No pulmonary embolism. MRSA swab negative. Fungitell, PCP PCR awaited. Bronchoscopy sample results of awaited. Appreciate pulmonology recommendations. Stop vancomycin. Continue with imipenem, Levaquin, Bactrim. Dose changed as per creatinine clearance of 32. Continue mechanical ventilation. Weaning down settings keeping saturation over 88%. Keep PEEP of around 5 given pneumomediastinum and pneumopericardium. DuoNebs every 6 hour, budesonide twice daily. Switch to prednisone 40 mg oral twice daily. For next 5 days. Wean down slowly. Maintain mean artery pressure over 65. Wean down Levophed accordingly. Add vasopressin for now so that Levophed can be weaned off. Cheetah evaluation showed no fluid responsiveness. Start on albumin every 8 hourly for 1 day. IV Lasix 40 mg once a day. Strict input output charting, daily weights. #DIC: Thrombocytopenia worsening. HIT panel, peripheral smear, serotonin assay pending. DIC panel positive. Elevated INR, thrombocytopenia, elevated D-dimer, FDP Repeat CBC in afternoon. # ELIZABETH ON CKD: Worsening most likely secondary to sepsis along with Bactrim. Monitor BMP daily. Medical reconciliation done for nephrotoxic drugs. Dose of antibiotics adjusted. Patient having mixed respiratory and metabolic acidosis. Monitor BMP electrolytes daily. #History of esophageal cancer: Currently on chemotherapy, missed last chemotherapy session was on eighth of this month. Patient will continue to follow oncology as an outpatient SCDs for DVT prophylaxis. CODE STATUS: Discussed in detail with patient's and daughter over the phone. They state he would have not wanted any kind of heroic measures and he was also hesitant about mechanical ventilation prior to be put on a ventilator. He would not want any kind of chest compressions. Family is okay with chest tube if needed. CODE STATUS: Limited resuscitation. Protonix for PUD prophylaxis. Restart on tube feeds. Goals of care discussion: I would long detailed discussion with patient's daughter and over the phone. We discussed that unfortunately patient is not improving and is requiring multiple pressors along with increment in FiO2 to maintain saturation over 90% along with new diagnosis of DIC with thrombocytopenia. We discussed regarding poor prognosis given all the above despite on prolonged treatment. Attestations Medical Necessity Statement*: Requires further hospitalization for management of respiratory failure, septic shock, DIC, ELIZABETH Critical Care Time: The high probability of a clinically significant, sudden or life threatening deterioration of the patient's [hematological, renal, pulmonary, cardiac, system(s) required my full and direct attention, intervention and personal management. The critical care time is as shown. This time is in addition to time spent performing any reported procedures but includes the following: [x] Data and vital sign review and interpretation [x] Patient assessment, examination and intervention [x] Documentation [x] Medication orders and management Critical Care Time (min): 90 Coding Level of Care Code Acute Card Hanger for [facility] Fwd Diagnoses Acute respiratory failure with hypoxia J96.01 Pneumonia J18.9 Pneumopericardium I31.9 Acquired pneumomediastinum J98.2 Emphysema/COPD J43.9 Immunosuppressed due to chemotherapy D84.821; T45.1X5A; Z79.899 Esophageal cancer C15.9 HTN (hypertension) I10 Thrombocytopenia D69.6
[2021-04-21 15:43] LABS: Basophils % 0.2 %; Eosinophils # 0.4 10^3/uL (0.0-0.8); Eosinophils % 2.6 %; Hematocrit 27.7 % (42.0-52.0); Lymphocytes # 0.5 10^3/uL (0.8-4.8); Lymphocytes % 3.7 %; Mean Corpuscular HGB Conc 32.5 g/dL (30.0-36.0); Mean Corpuscular Hemoglobin 30.1 pg (28.0-34.0); Mean Corpuscular Volume 92.6 fl (80-94); Mean Platelet Volume 13.8 fL (7.4-10.4); Monocytes # 0.3 10^3/uL (0.2-0.9); Monocytes % 1.8 %; Neutrophils # 12.54 10^3/uL (1.8-7.7); Nucleated Red Blood Cells % 0 %; Red Blood Count 2.99 10^6/uL (4.1-5.3); Red Cell Distribution Width 15.8 % (12.1-15.1); White Blood Count 13.9 10^3/uL (4.0-10.0)
[2021-04-21 16:04] LABS: Platelet Count 16 10^3/cmm (130-400)
[2021-04-21 16:08] LABS: Alanine Aminotransferase 23 U/L (0-41); Albumin Level 3.1 g/dL (3.5-5.2); Alkaline Phosphatase 84 IU/L (40-130); Anion Gap 19.2 (5-19); Aspartate Amino Transferase 40 U/L (0-40); Blood Urea Nitrogen 71 mg/dL (8-23); Carbon Dioxide 22 mmol/L (22-29); Chloride 94 mmol/L (98-107); Globulin 2.8 g/dL (1.3-4.6); Glucose 203 mg/dL (65-115); Magnesium 2.3 mg/dL (1.7-2.3); Osmolality Calculated 299 mOsm/kg (285-295); Potassium 4.2 mmol/L (3.5-5.1); Sodium 131 mmol/L (136-145); Total Bilirubin 0.2 mg/dL (0.15-1.2); Total Protein 5.9 g/dL (6.6-8.7)
--- NOTE | 2021-04-21 16:14 | PC.NURSE ---
Received a critical lab result, platelt count is 16. Nurse alerted Dr skaggs and received an order for 2 units of platelets. Nurse placed the order and advised blood bank. Kelle at blood bank advised that they will place the order and will receive them in a few hours.
[2021-04-21 16:37] LABS: ABG PCO2 50.5 mmHg (35-45); ABG PH Result 7.28 (7.35-7.45); Arterial Blood Gas Hematocrit 27.7 % (42-52); Base Excess ABG -3.1 mmol/L (-2.0-2.0); Blood Gas Allen Test Pos; Blood Gas Operator Identificat CAK; Blood Gas Sample Site Radial, left; Blood Gas Sample Type Arterial; Blood Gas Tidal Volume 0.45; HCO3 ABG 23.7 mmol/L (22-26); Oxygen Device VENT; PO2 ABG 75.1 mmHg (80.0-100.0)
--- NOTE | 2021-04-21 16:49 | XRR_ITS ---
PROCEDURE INFORMATION: Exam: XR Chest Exam date and time: 04/21/2021 4:49 PM Age: 70 years old Clinical indication: Dyspnea; Additional info: Check for pneumothorax TECHNIQUE: Imaging protocol: XR of the chest. Views: 1 view. COMPARISON: CR XR chest 1V portable [id number] 04/21/2021 4:38 AM FINDINGS: Tubes, catheters and devices: There is a left chest port with the line tip appropriately positioned in the lower SVC near the cavoatrial junction. Right internal jugular central line tip is in the right atrium. The endotracheal tube is appropriately positioned in the distal thoracic trachea with the tip above the uyen. The nasogastric tube is positioned in the stomach, well beyond the diaphragmatic hiatus. The tip is not imaged. Lungs: There is extensive consolidation in both lungs, greater on the left. Pleural spaces: There is no pleural effusion or pneumothorax. Heart/Mediastinum: Cardiomediastinal contours are unremarkable. Bones/joints: Bones are unremarkable. XR/XR chest 1V portable [id number] IMPRESSION: 1. No pneumothorax. 2. Stable lines and tubes. 3. Persistent bilateral pulmonary consolidation similar to the findings on the prior chest radiograph allowing for differences in lung volumes.
--- NOTE | 2021-04-21 17:06 | P.PN_ITS ---
Subjective Subjective: - overnight needed amiodarone bolus for episode of tachycardia causing hypoxia - Pplateau 31-33 ; Fio2 85% on ventilator with TV 450 and RR 26, PEEP 5- abg ph 7.28/CO2 50/O2 75 - Repeat Chest x-ray in the evening did not show any pneumothorax - appeared more congested probably from Bactrim - maintaining good urine out put - Sedated with fentanyl, versed, propofol - will add paralytic adn increase rate to 28 - Worsening Renal functions - Target MAP 65; on levophed and vasopressin; Bactrim reduced to twice daily; - T-max in last 24 hours 101.4 Fahrenheit. DIC panel positive with platelets 16K; No bleeding or oozing of blood - DCed vancomycin as MRSA negative; BAL cx pending and on imipenam, levoquin and bactrim - Other labs and imaging reviewed Medications: Medication Review Details: Generic Name Dose Route Start Last Admin Trade Name Freq PRN Reason Stop Dose Admin Albuterol/Ipratrop ium 3 ml 04/12/21 21:00 04/13/21 14:44 Ipratropium-Albu terol 3 Ml Neb INHALATION 3 ml Q6H.RESPIRATORY S CH Administration Enoxaparin Sodium 40 mg 04/12/21 18:30 04/12/21 18:43 Enoxaparin 40 Mg /0.4 Ml Syringe SUBCUT 40 mg Q24H DELORIS Administration Piperacillin Sod/T azobactam 50 mls @ 12.5 mls /hr 04/12/21 18:00 04/13/21 13:00 Sod 3.375 gm/ So dium Chloride IV Infused Q8H DELORIS Infusion Protocol Vancomycin/PEG/NAD A/Lysine/Water 1,250 mg in 250 m ls @ 200 mls/hr 04/12/21 20:00 04/13/21 08:51 Vancocin IV Infused Q12H DELORIS Infusion Losartan Potassium 100 mg 04/13/21 06:00 04/13/21 07:32 Losartan 50 Mg T ablet PO 100 mg QAM DELORIS Administration Pantoprazole Sodiu m 40 mg 04/13/21 09:00 04/13/21 07:[address] 40 Mg Tablet PO 40 mg DAILY DELORIS Administration Tamsulosin HCl 0.4 mg 04/12/21 21:00 04/12/21 21:38 Tamsulosin 0.4 M g Capsule PO 0.4 mg BEDTIME DELORIS Administration Vitals/I&O/Wt Last Vital Signs Temp 99.4 F 04/21/21 16:30 Pulse 94 04/21/21 16:30 Resp 26 H 04/21/21 15:57 BP 114/53 04/21/21 16:30 Pulse Ox 91 04/21/21 16:30 04/21/21 04/21/21 04/21/21 06:59 14:59 22:59 Intake Total 1772.228 / 5486.606 831.573 / 831.573 33.76 / 865.333 Output Total 750 / 2050 Balance 1022.228 / 3436.606 831.573 / 831.573 33.76 / 865.333 Weight last 48 hrs Weight 182 lb Weight 180 lb Physical Exam Narrative: PHYSICAL EXAM: General: lying in bed, sedated and intubated. HEENT:NCAT, PERRLA, EOMI Neck: Supple Lungs: coarse breath sounds bilaterally Heart: s1/s2, RRR Abd: soft, NT, ND, BS + Normoactive Extremities: No edema MEMBERSHIP SOLICITOR: sedated and limited MEMBERSHIP SOLICITOR exam possible. SKIN: no rash Urinary Catheter Management: Mae: Cath Placed During This Visit: yes Reason for Continuing Indwelling Catheter: Accurate Measurement of Urinary Out put in Critically Ill Patients Urinary Catheter Date of Insertion: 04/17/21 Urinary Catheter Time of Insertion: 21:57 Data : 04/21/21 15:03 04/21/21 15:03 Other Labs: Radiology Impressions Chest CT 04/16/21 07:54 IMPRESSION: 1. Progressed hazy groundglass infiltrate throughout the LEFT lung. These are progressed in the LEFT upper lobe and LEFT lower lobe compared to previous. 2. Interstitial infiltrates or edema throughout the RIGHT lung stable in appea lacey with some airspace consolidation RIGHT lower lobe. 3. Small RIGHT greater than LEFT pleural effusions. 4. Chronic emphysematous changes. 5. Enlarged anterior mediastinal and peribronchial lymph nodes. Stable perihilar bronchovascular thickening. Chest CTA 04/19/21 09:20 IMPRESSION: 1. Interval development of pneumomediastinum and pneumopericardium and a small RIGHT pneumothorax since the prior study of 04/16/2021. 2. Endotracheal and nasogastric tubes are in good position. 3. Diffuse bilateral pneumonia with groundglass and more focal consolidations consistent with pneumonia. 4. Indeterminate mediastinal and hilar lymphadenopathy. Lymph nodes have i ncreased in size since 04/16/2021 therefore likely reactive. 5. Small bilateral pleural effusions. Laboratory Results WBC 13.9 10^3/uL (4.0-10.0) H 04/21/21 15:03 RBC 2.99 10^6/uL (4.1-5.3) L 04/21/21 15:03 Hgb 9.0 g/dL (11.7-16.6) L 04/21/21 15:03 Hct 27.7 % (42.0-52.0) L 04/21/21 15:03 MCV 92.6 fl (80-94) 04/21/21 15:03 MCH 30.1 pg (28.0-34.0) 04/21/21 15:03 MCHC 32.5 g/dL (30.0-36.0) 04/21/21 15:03 RDW 15.8 % (12.1-15.1) H 04/21/21 15:03 Plt Count 16 10^3/cmm (130-400) L* 04/21/21 15:03 MPV 13.8 fL (7.4-10.4) H 04/21/21 15:03 Neut % (Auto) 90.0 % 04/21/21 15:03 Lymph % (Auto) 3.7 % 04/21/21 15:03 Waller % (Auto) 1.8 % 04/21/21 15:03 Eos % (Auto) 2.6 % 04/21/21 15:03 Baso % (Auto) 0.2 % 04/21/21 15:03 Neut # (Auto) 12.54 10^3/uL (1.8-7.7) H 04/21/21 15:03 Lymph # (Auto) 0.5 10^3/uL (0.8-4.8) L 04/21/21 15:03 Waller # (Auto) 0.3 10^3/uL (0.2-0.9) 04/21/21 15:03 Eos # (Auto) 0.4 10^3/uL (0.0-0.8) 04/21/21 15:03 Baso # (Auto) 0.0 10^3/uL (0.0-0.1) 04/21/21 15:03 Nucleated RBC % (auto) 0 % 04/21/21 15:03 Nucleated RBCs # 0.0 /100WBC 04/21/21 15:03 PT 16.70 SECONDS (12.1-14.9) H 04/20/21 15:42 INR 1.32 (0.8-1.2) H 04/20/21 15:42 APTT 40.7 SECONDS (23.9-36.7) H 04/20/21 15:42 Fibrinogen 381 mg/dL (174-498) 04/20/21 15:42 Fibrin Degrad Products Pos, >=40 ug/mL (NEG) H 04/20/21 15:42 D-Dimer >= 20.00 ug/mIFEU (0-0.59) H 04/20/21 15:42 Specimen Type Arterial 04/21/21 16:26 Sample Site Radial, left 04/21/21 16:26 ABG pH 7.28 (7.35-7.45) L 04/21/21 16:26 ABG pCO2 50.5 mmHg (35-45) H 04/21/21 16:26 ABG pO2 75.1 mmHg (80.0-100.0) L 04/21/21 16:26 ABG HCO3 23.7 mmol/L (22-26) 04/21/21 16:26 ABG O2 Saturation 96.8 04/19/21 04:48 ABG Base Excess -3.1 mmol/L (-2.0-2.0) L 04/21/21 16:26 Jorge Test Pos 04/21/21 16:26 A-a O2 Gradient 45.2 mmHg (5-10) H 04/19/21 04:48 Hematocrit 27.7 % (42-52) L 04/21/21 16:26 Hgb O2 Saturation 95.4 % (95-100) 04/19/21 04:48 Carboxyhemoglobin 0.8 %THgb (0.4-20.1) 04/19/21 04:48 Methemoglobin 0.6 % (0.4-1.5) 04/19/21 04:48 Total Hemoglobin 13.3 g/dL (14-18) L 04/19/21 04:48 Sodium 136.0 mmol/L (131-143) 04/19/21 04:48 Potassium 3.2 mmol/L (3.5-5.0) L 04/19/21 04:48 Glucose 217.0 mg/dL (70-115) H 04/19/21 04:48 Ionized Calcium 1.3 mmol/L (1.1-1.4) 04/19/21 04:48 O2 Delivery Device Vent 04/21/21 16:26 O2 Liters/Min 15.0 % 04/16/21 01:00 FiO2 85.0 % 04/21/21 16:26 Tidal Volume 0.45 04/21/21 16:26 PEEP 5.0 cmH20 04/21/21 16:26 Paper Cutter ID Cak 04/21/21 16:26 Sodium 131 mmol/L (136-145) L 04/21/21 15:03 Potassium 4.2 mmol/L (3.5-5.1) 04/21/21 15:03 Chloride 94 mmol/L (98-107) L 04/21/21 15:03 Carbon Dioxide 22 mmol/L (22-29) 04/21/21 15:03 Anion Gap 19.2 (5-19) H 04/21/21 15:03 BUN 71 mg/dL (8-23) H 04/21/21 15:03 Creatinine 2.3 mg/dL (0.7-1.2) H 04/21/21 15:03 GFR Calculation Not Reportable 04/21/21 15:03 Glucose 203 mg/dL (65-115) H 04/21/21 15:03 POC Glucose 106 mg/dL (70-110) 04/16/21 00:05 Estimat Average Glucose 126 04/20/21 05:06 Hemoglobin A1c 6.0 % (4.0-6.0) 04/20/21 05:06 Calculated Osmolality 299 mOsm/kg (285-295) H 04/21/21 15:03 Lactic Acid 1.1 mmol/L (0.5-2.2) 04/12/21 16:50 Calcium 9.0 mg/dL (8.5-10.5) 04/21/21 15:03 Magnesium 2.3 mg/dL (1.7-2.3) 04/21/21 15:03 Iron 26 ug/dL (59-158) L 04/19/21 02:45 TIBC 80 mcg/dl 04/19/21 02:45 % Saturation 32.5 % (20-50) 04/19/21 02:45 Unsat Iron Binding 54 ug/dL (112-347) L 04/19/21 02:45 Total Bilirubin 0.2 mg/dL (0.15-1.2) 04/21/21 15:03 AST 40 U/L (0-40) 04/21/21 15:03 ALT 23 U/L (0-41) 04/21/21 15:03 Alkaline Phosphatase 84 IU/L (40-130) 04/21/21 15:03 Lactate Dehydrogenase 391 U/L (135-225) H 04/19/21 02:45 Troponin T Gen 5 ng/L 46 ng/L (0-15) H 04/16/21 13:00 C-Reactive Protein 116.2 mg/L (0.0-4.9) H 04/12/21 16:50 NT-Pro-B Natriuret Pep 677 pg/mL (0-125) H 04/16/21 00:52 NT-Pro-B Natriuret Pep Cancelled 04/16/21 00:52 Total Protein 5.9 g/dL (6.6-8.7) L 04/21/21 15:03 Albumin 3.1 g/dL (3.5-5.2) L 04/21/21 15:03 Globulin 2.8 g/dL (1.3-4.6) 04/21/21 15:03 Triglycerides 86 mg/dL (0-150) 04/20/21 05:06 Cholesterol 74 mg/dL (0-200) 04/20/21 05:06 LDL Cholesterol, Calc 37 mg/dL (50-129) L 04/20/21 05:06 Total VLDL Cholesterol 17 mg/dL (0-30) 04/20/21 05:06 HDL Cholesterol 20 mg/dL (60-100) L 04/20/21 05:06 Cholesterol/HDL Ratio 3.70 mg/dL (1.0-5.00) 04/20/21 05:06 Procalcitonin 3.19 ng/mL (0-0.5) H 04/19/21 02:45 TSH 0.77 uIU/mL (0.27-4.20) 04/19/21 02:45 Nasal Influ A H1 2009 PCR Not detected (NOT DETECT) 04/15/21 18:00 Bronch Specimen Source Left lower lobe 04/19/21 14:30 Bronchial Fluid Color Colorless 04/19/21 14:30 Bronchial Fluid Appearance Clear (CLEAR) 04/19/21 14:30 Bronchial Fluid WBC 284 /uL 04/19/21 14:30 Bronchial Fluid RBC 1 10^3/uL 04/19/21 14:30 Bronch Cells Counted 300 04/19/21 14:30 Bronchial Neutrophils 13.30 % (0.9-2.3) H 04/19/21 14:30 Bronchial Lymphocytes 8.30 % (10.71-12.91) L 04/19/21 14:30 Bronchial Eosinophils 0.00 % (0.13-0.25) L 04/19/21 14:30 Bronchial Macrophages 78.40 % (83.6-86.8) L 04/19/21 14:30 Bronchial Other Cells 0 % 04/19/21 14:30 Bronchial Diff Comment Yes 04/19/21 14:30 Vancomycin Trough 29.9 ug/mL (10-15) H* 04/20/21 19:26 Adenovirus (PCR) Not detected (NOT DETECT) 04/15/21 18:00 C. pneumoniae DNA (PCR) Not detected (NOT DETECT) 04/15/21 18:00 Coronavirus 229E (PCR) Not detected (NOT DETECT) 04/17/21 14:20 Human Metapneumovir PCR Not detected (NOT DETECT) 04/15/21 18:00 Influenza A (H1) PCR Not detected (NOT DETECT) 04/15/21 18:00 Influenza A (H3) PCR Not detected (NOT DETECT) 04/15/21 18:00 Influenza Type A Ag Negative (Negative) 04/14/21 13:00 Influenza Type A (PCR) Not detected (NOT DETECT) 04/15/21 18:00 Influenza Type B Ag Negative (Negative) 04/14/21 13:00 Influenza Type B (PCR) Not detected (NOT DETECT) 04/15/21 18:00 M. pneumoniae (PCR) Not detected (NOT DETECT) 04/15/21 18:00 Parainfluenza 1 (PCR) Not detected (NOT DETECT) 04/15/21 18:00 Parainfluenza 2 (PCR) Not detected (NOT DETECT) 04/15/21 18:00 Parainfluenza 3 (PCR) Not detected (NOT DETECT) 04/15/21 18:00 Parainfluenza 4 (PCR) Not detected (NOT DETECT) 04/15/21 18:00 RSV Type A (PCR) Not detected (NOT DETECT) 04/15/21 18:00 RSV Type B (PCR) Not detected (NOT DETECT) 04/15/21 18:00 Entero/Rhino (PCR) Not detected (NOT DETECT) 04/15/21 18:00 SARS-CoV-2 (PCR) Not detected (NOT DETECT) 04/17/21 14:20 Beta-(1,3)-D-Glucan Cancelled 04/20/21 05:06 B-(1,3)-D-Glucan Intrp Cancelled 04/20/21 05:06 Micro: Microbiology 04/19/21 12:45 Gram Stain - Final Sputum - Endotracheal Tube Aspirate Sputum Culture - Preliminary 04/19/21 14:30 Gram Stain - Final Lung Left Lower Lobe Bronchoalveolar Lavage Culture - Preliminary 04/19/21 09:29 MRSA Culture - Final Nose A&P Assessment and plan (1) Acute respiratory failure with hypoxia: Status: Acute (2) Pneumonia: Status: Acute (3) Esophageal cancer: Status: Acute (4) Immunosuppressed due to chemotherapy: Status: Acute (5) PCP (pneumocystis jiroveci pneumonia): Status: Acute (6) Emphysema/COPD: Status: Acute (7) DIC (disseminated intravascular coagulation): Status: Acute Plan #Acute hypoxic respiratory failure in patient likely secondary to pneumonia and patient is on chemotherapy for esophageal cancer #Suspect PCP pneumonia given his immunosuppression #Pneumonmediastinum and pneumopericardium subcutaneaus emphysema - resolved #Septic shock on Levophed & Vasopressin #DIC seconadry to sepsis #Thrombocytopenia- DIC Vs heparin-induced thrombocytopenia -Currently intubated 04/17/2021-on CMV 450/26/5/85%; -ABG 7.28/50/75/23- on FIO2 85% saturations were 92% - Pplateau 31-33 ; Fio2 85% on ventilator with TV 450 and RR 26, PEEP 5- abg ph 7.28/CO2 50/O2 75 - Repeat Chest x-ray in the evening did not show any pneumothorax - appeared more congested probably from Bactrim - maintaining good urine out put - Sedated with fentanyl, versed, propofol - will add paralytic adn increase rate to 28 - Worsening Renal functions - Target MAP 65; on levophed and vasopressin; Bactrim reduced to twice daily; - T-max in last 24 hours 101.4 Fahrenheit. DIC panel positive with platelets 16K; No bleeding or oozing of blood - DCed vancomycin as MRSA negative; BAL cx pending and on imipenam, levoquin and bactrim - ON prednisone 40 mg p.o. twice daily for 5 days (Untill 04/25/21) followed by 40 mg daily for 5 days and 20 mg for 11 days -CTA 04/19/2021 showed interval development of pneumomediastinum/pneumopericardium and subcu emphysema compared to CT 3 06/03/2021-bilateral dense consolidations and bilateral small pleural effusions -CXR 04/21/21 - There is extensive consolidation in both lungs, greater on the left. Pleural spaces: There is no pleural effusion or pneumothorax. -So far lower extremity Dopplers negative for DVT, CT negative for PE, sputum culture moderate normal maria ines, urine bacterial antigens and Legionella antigen negative. MRSA nares negative. Blood cultures negative so far, procalcitonin increased 3.19 in the absence of renal failure. -I did bronchoscopy 04/19/21-mild erythema noted in bilateral lower lobes-2 BAL samples from left lower lobe and sent for mycobacterial/bacterial/fungal cultures-PCP PCR, galactomannan index-we will follow up results -Also beta D glucan levels pending -Given his history of chemotherapy and related immunosuppression-started on Bactrim 04/20/21 and treat PCP pneumonia until PCR results are available -Try to keep net negative to even fluid balance while monitoring renal functions -Thrombocytopenia -upon review there has been > 50% drop - stopped Lovenox and sent for HIT and Serotonin release assay - Use SCDs for DVT ppx -We will continue to monitor clinically, taper down FiO2, tapered on pressors and adjust antibiotics based on cultures -Prognosis guarded -Limited resuscitation -Next of kin updated -DVT prophylaxis: Held lovenox for suspected HIT and placed on SCDs -GI prophylaxis PPI Recommendations conveyed to hospitalist, RN, RT taking care of the patient Attestations Medical Necessity Statement*: Acute hypoxic respiratory failure likely secondary to HAP/PCP pneumonia and patient with significant immunosuppression secondary to chemotherapy for colon cancer-currently requiring mechanical ventilator for respiratory support, pressor support for septic shock, need close ICU monitoring Time Spent in Patient Care: Greater than 35 minutes (>than 50% of time spent in counselling and/or direct pt care on unit) . Critical Care Time: The high probability of a clinically significant, sudden or life threatening deterioration of the patient's [pulmonary, cardiac, renal, hematologic] system(s) required my full and direct attention, intervention and personal management. The critical care time is as shown. This time is in addition to time spent performing any reported procedures but includes the following: [x] Data and vital sign review and interpretation [x] Patient assessment, examination and intervention [x] Documentation [x] Medication orders and management Critical Care Time (min): 50 Coding Level of Care Code Acute Electrical Panel Builder for [facility] Fwd Diagnoses Acute respiratory failure with hypoxia J96.01 Pneumonia J18.9 Esophageal cancer C15.9 Immunosuppressed due to chemotherapy D84.821; T45.1X5A; Z79.899 PCP (pneumocystis jiroveci pneumonia) B59 Emphysema/COPD J43.9 DIC (disseminated intravascular coagulation) D65
[2021-04-21] MEDS: norepinephrine 8 MG in dextrose 5 % 500 ML 11.43 MG IV (18:26)
[2021-04-21] MEDS: cisatracurium 100 MG in sodium chloride 0.9% 50 ML IV (19:58)
--- NOTE | 2021-04-21 20:00 | PC.NURSE ---
Report just given to Nola, RN and Can RN. Pt as order for 2 units of platelets to be given, ready in lood blank. Just received consent from family. Nimbex just started. All IV sites in use as albumin and Bactrim infusing. Shift Note: Pt remains intubated and sedated. FIO2 at 90%. Tube feeding restarted at 10ml/hr around noon, Residual 60 , mostly green gastric contents, rate not increased this shift. Lungs remain coarse sounding. Lasix admin todya. Pt has had 2000ml urin output. Frequent safety and comfort rounds continue. Orders and/or nursing care completed as indicated. Patient monitored for response to intervention and treatment(s). Education provided includes Nimbex, paralyzing lasix, albumin and platelets. Patient's sales representative printing verbalizes understanding of condition, plan of care and medications . Will continue to monitor.
[2021-04-21] MEDS: FUROsemide 10 mg/mL SDV 10mL 80 MG IVP (21:16)
[2021-04-21] MEDS: tamsulosin 0.4 mg Capsule PO (21:17)
--- NOTE | 2021-04-21 22:00 | PC.NURSE ---
Tube Feeding Bile noted coming out of patient's mouth. Mouth suctioned revealing more bile. Tube feeding stopped and ET tube suctioned; ET tube suction revealed no sputum or bile. Gastric residual [address] Black notified and order received to hold tube feeds.
[2021-04-21] MEDS: sodium chloride 0.9% (100 ml) 100 ML (22:14)
[2021-04-21] MEDS: propofol 1,000 MG/100 ML INJ 22.14 MG IV (22:20)
[2021-04-22] VITALS (38 sets, daily range): BP systolic 98–116; BP diastolic 43–60; PULSE 0–113; RESP 0–33; TEMP 36.9–37.6; O2SAT 89–92; BMI 26.9
--- NOTE | 2021-04-22 | PC.NURSE ---
Family Update Daughter, Nicol Stout, called and received updates on patient at 2150 and at 0000. Oxygen requirements, platelet administration, and lab results were discussed. Daughter verbalized understanding and stated no further questions.
[2021-04-22] MEDS: ipratropium-albuterol 3 mL Neb INHALATION ×2 (02:45→08:01)
[2021-04-22] MEDS: propofol 1,000 MG/100 ML INJ 22.14 MG IV ×3 (04:08→12:55)
[2021-04-22 04:48] LABS: ABG PCO2 52.2 mmHg (35-45); ABG PH Result 7.28 (7.35-7.45); Arterial Blood Gas Hematocrit 24.5 % (42-52); Base Excess ABG -2.5 mmol/L (-2.0-2.0); Blood Gas Allen Test Pos; Blood Gas Sample Type Arterial; Carboxyhemoglobin 1.1 %THgb (0.4-20.1); HCO3 ABG 24.3 mmol/L (22-26); HGB O2 Sat 90.1 % (95-100); Ionized Calcium Level - ABG 1.3 mmol/L (1.1-1.4); Methemoglobin 1.3 % (0.4-1.5); Oxygen Saturation ABG 92.3; PO2 ABG 68.6 mmHg (80.0-100.0); Potassium Level - ABG 4.2 mmol/L (3.5-5.0)
[2021-04-22 04:53] LABS: Alveolar-Arterial Oxygen Gradi 75.7 mmHg (5-10); Blood Gas Operator Identificat JB; Blood Gas Sample Site Brachial, right; Blood Gas Tidal Volume 0.45; Oxygen Device VENT
[2021-04-22 05:06] LABS: Basophils % 0.2 %; Eosinophils # 0.2 10^3/uL (0.0-0.8); Hematocrit 24.1 % (42.0-52.0); Hemoglobin 7.8 g/dL (11.7-16.6); Lymphocytes # 0.6 10^3/uL (0.8-4.8); Lymphocytes % 5.3 %; Mean Corpuscular HGB Conc 32.4 g/dL (30.0-36.0); Mean Corpuscular Hemoglobin 29.9 pg (28.0-34.0); Mean Corpuscular Volume 92.3 fl (80-94); Mean Platelet Volume 12.3 fL (7.4-10.4); Monocytes # 0.3 10^3/uL (0.2-0.9); Monocytes % 2.5 %; Neutrophils # 9.66 10^3/uL (1.8-7.7); Neutrophils % 88.4 %; Nucleated Red Blood Cells % 0 %; Platelet Count 41 10^3/cmm (130-400); Red Blood Count 2.61 10^6/uL (4.1-5.3); Red Cell Distribution Width 16.1 % (12.1-15.1); White Blood Count 10.9 10^3/uL (4.0-10.0)
[2021-04-22 05:20] LABS: Fibrinogen 330 mg/dL (174-498); Partial Thromboplastin Time 33.8 SECONDS (23.9-36.7)
[2021-04-22 05:22] LABS: INR 1.47 (0.8-1.2)
[2021-04-22 05:29] LABS: Alanine Aminotransferase 19 U/L (0-41); Albumin Level 3.5 g/dL (3.5-5.2); Alkaline Phosphatase 76 IU/L (40-130); Anion Gap 21.2 (5-19); Aspartate Amino Transferase 35 U/L (0-40); Calcium 9.1 mg/dL (8.5-10.5); Carbon Dioxide 22 mmol/L (22-29); Chloride 94 mmol/L (98-107); Globulin 2.4 g/dL (1.3-4.6); Glucose 180 mg/dL (65-115); Osmolality Calculated 307 mOsm/kg (285-295); Potassium 4.2 mmol/L (3.5-5.1); Sodium 133 mmol/L (136-145); Total Bilirubin 0.2 mg/dL (0.15-1.2); Total Protein 5.9 g/dL (6.6-8.7)
[2021-04-22 05:33] LABS: Blood Urea Nitrogen 88 mg/dL (8-23)
[2021-04-22 05:37] LABS: D Dimer >= 20.00 ug/mIFEU (0-0.59)
[2021-04-22] MEDS: sulfamethoxazole-trimeth inj 480 MG in dextrose 5 % 500 ML 500 MG IV (05:59)
--- NOTE | 2021-04-22 07:10 | PC.NURSE ---
BIS/Train of Four BIS Train of Four [id number] 45 4 2200 39 4 0000 47 4 0200 43 4 0400 47 4 [phone] 46 4
[2021-04-22] MEDS: budesonide 0.5 mg/2 mL Neb INHALATION (08:01)
[2021-04-22] MEDS: cisatracurium 100 MG in sodium chloride 0.9% 50 ML 19.81 MG IV (08:44)
[2021-04-22] MEDS: pantoprazole 40 mg SDV IVP (09:47)
[2021-04-22] MEDS: predniSONE 20 mg Tablet 40 MG PO (09:48)
--- NOTE | 2021-04-22 10:00 | XR_ITS ---
WS: [id number] Portable AP supine chest, 04/22/2021 Clinical Data: intubated Comparison: Portable chest, 04/21/2021 Findings: The right internal jugular venous catheter, left subclavian catheter, nasogastric tube and endotracheal tube remain in the same position. Bilateral extensive pulmonary opacities have not duran ed. The heart is at the upper limits of normal. Monitor leads are on the chest wall. XR/XR chest 1V portable [id number] Impression: 1. No change in bilateral pulmonary opacities. 2. No change in position of multiple tubes.
--- NOTE | 2021-04-22 10:05 | CT_ITS ---
WS: [id number] CT HEAD NONCONTRAST HISTORY: possible bleed TECHNIQUE: Contiguous axial imaging performed through the brain in 2.5 mm imaging. Bone and soft tiss ue windows. Sagittal and coronal reformats reviewed. All CT scans at [facility] use at least one of these dose optimization techniques: automated exposure control; mA and/or kV adjustment per pa tient size (includes targeted exams where dose is matched to clinical indication); or iterative recon struction. DLP: 1082.25 mGy.cm COMPARISON: None available. No acute intracranial hemorrhage, midline shift or mass effect. Moderate atrophy bilaterally. There are numerous bilateral areas of decreased attenuation scattered t hroughout the supratentorial and infratentorial brain. The largest area of decreased attenuation with loss of the cortical medullary junction is in the posterior LEFT parietal lobe. Similar findings ext end into the occipital lobes bilaterally. There are additional scattered areas of decreased attenuati on in the subcortical white matter of the frontal, parietal and temporal lobes and also within the ce rebellum. Due to the distribution and extent these may be related to chronic infarcts. 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 Ventricles: Normal size with no hydrocephalus. Paranasal sinuses: As visualized are clear. Mastoid air cells: Bilateral mastoid air cell fluid. Greatest involving the LEFT mastoid air cells. N o extension into the inner ear. Calvarium and scalp: Skull is intact with no soft tissue edema or swelling. CT/CT head wo con* [id number] IMPRESSION: 1. No acute intracranial hemorrhage or edema. 2. There are numerous bilateral areas of low attenuation throughout the white matter, involving the supratentorial and infratentorial brain. These involve se veral arterial distributions. Probably related to ischemic disease. Differentia l due to their distribution would include metastatic sites, infection and vascu litis. These are not likely acute. Consider nonemergent MRI brain with contrast evaluation for further evaluation.
--- NOTE | 2021-04-22 10:05 | USCV_ITS ---
Jatinder Platt Age: 70 Gender: M : 1950 Exam Date: 04/22/2021 11:42 Ordering Phys: Kayden Padilla MD Technologist: Kavon Bermudez Exam Location: [facility] [place] Indication: lt arm swelling PROCEDURES: Venous duplex imaging was performed in only the left upper extremity. The following venous structures were evaluated: internal jugular vein, subclavian vein, axillary vein, and brachial veins. In addition, the basilic vein, cephalic vein, radial vein, and ulnar vein. FINDINGS: There is occluding thrombus in lt sub clav and lt cephalic the rest of the arm veins are normal CONCLUSIONS Occlusive DVT left subclavian Superficial thrombus left cephalic veins. Remainder of LUE veins are patent Keny Vernon MD (Electronically Signed) Final Date: 22 April 2021 16:42 S
--- NOTE | 2021-04-22 10:14 | PC.NUTR ---
When medically appropriate and TF is resumed, recommend increasing goal rate of Jevity 1.2 from 30 ml/hr to 50 ml/hr with 100 ml flushes Q4H. Details in RD assessment.
--- NOTE | 2021-04-22 11:40 | PC.CHAP ---
Pastoral Care Encounter/Spiritual Assessment Type of Contact [] Declined director of critical care visit [] Patient/Family/Request visit [] Outpatient visit [] Follow-up visit [] Physician referral [] Code/Alert [x] Routine visit [] Staff referral [] Actively dying [] Patient sleeping [] Family support [] [] Out of room [] Palliative care [] [x] Receiving care in room [] Pre-surgical visit [] Trauma [] Long length of stay [x] ICU visit [x] Other: removing vent Relational/Emotional Strength [] Patient feels connected with others/family/visitors/staff [] Distress [] Loneliness/isolation [] Abandonment Spirituality of Patient [] Person of Ashley [] Attends Pentecostal of their Ashley [] Believes in Prayer [] Reads Bible or Alevism materials [] There are Spiritual issues to be addressed Credentialing Coordinator Interventions [x] Prayer [] Active listening [] Non-anxious presence [] Spiritual/emotional support [] Crisis/trauma care [] Spiritual counseling [] Bereavement support [] Provided bereavement packet [] Provided Bible/devotional materials [] Provided toy/stuffed animal, coloring book to patient or family member [] Provided Communion [] Anointing/[place] [] Salvation [x] Completed spiritual assessment [] Other: Impact on Illness or Injury [] Angry [] Fearful [] Anxious [] Often cries [] Exhaustion [] Unable to work [] Unable to attend shinto [] Unable to walk/stand [] Unable to read [] Unable to drive [] Unable to eat/drink [] Unable to sleep [] Unable to be with family [] Patient intubated [] Other: Summary Time spent with patient
[2021-04-22 12:46] LABS: Vancomycin Random 20.4 ug/mL (20.0-40.0)
--- NOTE | 2021-04-22 13:38 | PC.NURSE ---
Family present. Dr Hi notified family ready to start comfort care.
--- NOTE | 2021-04-22 14:30 | PC.NURSE ---
Pt extubated. OG removed. All IV medications discontinued. Pt on comfort care. family at bedside.
--- NOTE | 2021-04-22 14:48 | P.DES_ITS ---
Discharge Providers DDS Date of Admission: 04/12/21 17:55 Date Summary Completed: 04/22/21 Attending Provider at Admission: Eze Dimas MD Time of : 14:37 Attending Provider at Discharge: Kayden Padilla MD Consults: Pulmonary/interventionalists: Dr. Maravilla Primary Care Provider: Apolinar GORDON Diagnoses Hospital Diagnoses (1) Acute respiratory failure with hypoxia: (2) Pneumonia: (3) Esophageal cancer: (4) Immunosuppressed due to chemotherapy: (5) PCP (pneumocystis jiroveci pneumonia): (6) Emphysema/COPD: (7) DIC (disseminated intravascular coagulation): Reason for Visit Reason for Visit PT stated he has Anomonia Summary Date and Time of Date of : 04/22/21 Time of : 14:37 Summary Summary: Jatinder Platt is a 70 year old male with PMH esophageal cancer on chemotherapy with FOLFOX/pembrolizumab, last chemo in February 2021, hypertension, CT evidence of emphysema admitted to [facility] on 04/12/2021 for worsening shortness of breath for 1 week associated with fevers 2 weeks back, being managed for pneumonia as outpatient with PCP-initially received azithromycin followed by Levaquin-with new oxygen requirements patient was referred to emergency room.? Upon arrival in the emergency room CT chest negative for PE but showed bilateral airspace disease.? Procalcitonin was normal and ABG 7.4 and FiO2 40% on BiPAP.? He was started on vancomycin and Zosyn. Due to worsening FiO2 requirements he was transferred to ICU-repeat CT chest showed progressed hazy groundglass infiltrates throughout left upper and lower lobes compared to admission CTA.? There were small bilateral pleural effusions. Patient was intubated on 04/17/2021 and connected to mechanical ventilator. Pulmonology was consulted and patient underwent bronchoscopy on 04/19. Patient was prophylactically started on Bactrim for PCP given extensive bilateral groundglass infiltrates. During hospitalization patient developed septic shock for which she required vasopressors. His blood culture during hospitalization remain negative. Sputum culture came back positive for staph epidermidis and multiple studies including galactomannan, Fungitell, PCP is still pending. Patient's care was complicated by him developing pneumopericardium, pneumo mediastinum for which ventilator settings were changed along with DIC causing his platelet count to drop down to 16,000. Patient had episodes of overbreathing the vent with high peak pressures even on paralytic along with swelling of left upper limb for which CT head and upper limb Dopplers were done and there was a concern for multiple infarcts and white matter along with a DVT in the right upper limb. Patient even required amount of blood transfusion. Patient eventually developed acute kidney injury and mild oliguria. Given all of the above with patient developing DIC, worsening renal functions with leading to a possible renal failure and need of dialysis, higher ventilator requirements with FiO2 going up to 95-100 %, persistent shock requiring multiple pressors and new diagnosis of possible stroke and DVT multiple goals of care discussions were done with patient's DPOA/ Ms. Palma and daughter Ms. De Leon. Family decided for patient to go for comfort measures status only and he was put on comfort measures status on 04/22. Eventually patient on 04/22 at 1437 at comfortable state with daughter at bedside. Additional Data Confirmation of as documented by pronouncing clinician: no pulse, no respirations and no heart sounds Family: at bedside Additional persons at bedside: nursing staff Attending/PCP notified?: I am attending Was code activated?: No Autopsy requested?: No Advance directives?: No Hospice patient?: No Discharge Plan Discharge Patient Disposition: Condition: Stable Prescriptions: No Action esomeprazole magnesium 40 mg capsule,delayed release(DR/EC) 40 mg PO QAM 0RF albuterol sulfate 2.5 mg /3 mL (0.083 %) solution for nebulization 2.5 mg inhalation TID PRN (Reason: Shortness Of Breath) 0RF meloxicam 15 mg tablet 15 mg PO QAM 0RF Guaifenesin DM 10-100 mg/5 mL Syrup 10 ml PO Q4H PRN (Reason: Cough) 0RF tamsulosin 0.4 mg capsule 0.4 mg PO BEDTIME PRN (Reason: unknown) 0RF Mucinex D Maximum Strength 120-1,200 mg tablet extended release 12 hr 1 tab PO Q12H 0RF levofloxacin 500 mg tablet 500 mg PO DAILY 0RF Rx Instructions: for 7 days (rx filled 04/05/21) losartan 100 mg tablet 100 mg PO QAM 0RF Acidophilus Probiotic Blend 175 mg Capsule 1 cap PO QAM 0RF Referrals: Apolinar Li MD [Primary Care Provider] - Patient Instructions: Opioid Safety Probable Cause of Probable cause of : Disseminated intravascular coagulation DS Attestations Time Spent in /Discharge Care*: greater than 30 min Quality - AMI: AMI present?: No Quality - Stroke: CVA present?: No Quality - VTE: VTE present?: Yes Contraindication No VTE Prophylaxis: Contraindicated Documentation of Mechanical Device: Intermittent pneumatic compression stockings Contraindication No Overlap Therapy: Contraindicated Is this test being ordered to rule out VTE?: Yes Deep Vein Thrombosis/Pulmonary Embolism Present on Admission: No Coding Level of Care Code Acute Benefits Specialist for Chg Fwd History Comprehensive Exam Comprehensive Medical Decision Making High Complexity Diagnoses Acute respiratory failure with hypoxia J96.01 Pneumonia J18.9 Esophageal cancer C15.9 Immunosuppressed due to chemotherapy D84.821; T45.1X5A; Z79.899 PCP (pneumocystis jiroveci pneumonia) B59 Emphysema/COPD J43.9 DIC (disseminated intravascular coagulation) D65
--- NOTE | 2021-04-22 15:33 | PC.NURSE ---
TOD 1437. Dr Hi notified 1500. All lines and tubes removed. 1510 MTS and Ramesh/Swank homenotified by pump house engineer.
--- NOTE | 2021-04-22 15:41 | PC.NURSE ---
Addendum entered by Omar Gandhi RN 04/22/21 15:44: Witnessed waste of Fentanyl and Versed Original Note: Fentanyl gtt wasted; 146.417 ml. Versed gtt wasted: 73.133. Witnessed by Omar Gandhi RN
[2021-04-23 14:32] LABS: LMWH High Dose 50 IU/ML 0 % Release; LMWH Low Dose 0.1 IU/ML 0 % Release; LMWH Low Dose 1.0 IU/ML 0 % Release; LMWH SRA Result Negative (Negative)
[2021-04-23 16:12] LABS: Heparin Induced Platelet AB NEGATIVE (NEGATIVE); Patient O.D 0.203
[2021-04-24 17:27] LABS: Fungitell 1-3-B Glucan Assay <31 pg/mL; Interpretation NEGATIVE
[2021-04-25 15:49] LABS: P. Jirovecii DNA QL PCR NOT DETECTED
[2021-04-27 01:47] LABS: Pneumocystis Jirovecii DNA PCR NO DNA DETECTED copies/mL
[2021-04-28 02:56] LABS: UFH High Dose, 100 IU/ML 2 % release; UFH Low Dose, 0.1 IU/ML 1 % release; UFH Low Dose, 0.5 IU/ML 1 % release; UFH SRA Result NEGATIVE (NEGATIVE)
[2021-05-01 19:27] LABS: Aspergillus Source SPUTUM; Aspergillus Supp NOT DETECTED; Aspergillus Terreus DNA NOT DETECTED
== END 2021-04-22 14:37 | disposition expired | DRG 207 ==
LOC: ER 19:09 → MEDSURG 20:49 → ICU 04-18 07:08
PROVIDERS: Internal Medicine; Internal Medicine Pulmonary Disease; Admitting Provider Internal Medicine; Emergency Provider Family Medicine; PCP Family Medicine; Visit Provider Student in an Organized Health Care Education/Training Program
DX: B59 Pneumocystosis (principal); A41.9 Sepsis, unspecified organism; R65.21 Severe sepsis with septic shock; J96.01 Acute respiratory failure with hypoxia; N17.0 Acute kidney failure with tubular necrosis; D65 Disseminated intravascular coagulation [defibrination syndrome]; C15.9 Malignant neoplasm of esophagus, unspecified; I31.9 Disease of pericardium, unspecified; J93.9 Pneumothorax, unspecified; I82.B12 Acute embolism and thrombosis of left subclavian vein; I82.612 Acute embolism and thrombosis of superficial veins of left upper extremity; D84.821 Immunodeficiency due to drugs; Z79.899 Other long term (current) drug therapy; Z95.828 Presence of other vascular implants and grafts; N18.9 Chronic kidney disease, unspecified; I12.9 Hypertensive chronic kidney disease with stage 1 through stage 4 chronic kidney disease, or unspecified chronic kidney disease; I95.9 Hypotension, unspecified; J98.2 Interstitial emphysema; Z66 Do not resuscitate; B95.7 Other staphylococcus as the cause of diseases classified elsewhere; T45.1X5A Adverse effect of antineoplastic and immunosuppressive drugs, initial encounter
CPT/HCPCS: 36415; 36416; 36430; 36591; 36592; 36600; 51702; 70450; 71045; 71250; 71275; 80048; 80051; 80053; 80061; 80202; 80500; 82330; 82803; 82805; 82962; 83036; 83540; 83550; 83605; 83615; 83735; 83880; 84145; 84443; 84484; 85025; 85362; 85378; 85384; 85610; 85730; 86022; 86140; 86403; 86606; 86850; 86900; 87015; 87040; 87070; 87077; 87102; 87116; 87186; 87205; 87206; 87305; 87449; 87486; 87581; 87633; 87635; 87641; 87798; 87799; 87801; 87804; 89050; 93005; 93306; 93970; 93971; 94002; 94003; 94640; 94660; 94799; 96365; 96372; 96375; 99285; A4570; C1751; C9113; J0282; J0330; J0456; J0743; J1100; J1650; J1720; J1940; J1956; J2250; J2543; J2704; J2930; J3010; J3370; J3475; J3480; J3490; J7040; J7050; J7512; J7614; J7626; J7644; P9035; P9047; Q9967